=== PATIENT | female | born 1945 | race Caucasian/White ===

== ENCOUNTER 2016-11-05 10:06 | Outpatient (CLI) | payer MEDICARE, OTHER ==
[~2016-11-05] VITALS: Ht 154.9 cm; Wt 57.2 kg
[2016-11-05] MEDS ORDERED: PRAV40TA2 PO (10:25)
[2016-11-05] MEDS ORDERED: TRAM50TA2 PO (10:25)
[2016-11-05] MEDS ORDERED: CHOL20003 PO (10:25)
[2016-11-05] MEDS ORDERED: METO-333 PO (10:25)
[2016-11-05] MEDS ORDERED: GABA-488 PO (10:25)
[2016-11-05] MEDS ORDERED: CYAN250014 PO (10:25)
[2016-11-05] MEDS ORDERED: PANT40TA3 PO (10:25)
[2016-11-05] MEDS ORDERED: LEVO50TA6 PO (10:25)
[2016-11-05] MEDS ORDERED: FERR324T7 PO (10:25)
[2016-11-05 10:34] VITALS: BP 114/69
[2016-11-05 11:38] LABS: BASOPHILS % (AUTO) 0 % (0-10); EOSINOPHILS # (AUTO) 0.2 10^3/uL (0.0-0.3); EOSINOPHILS % (AUTO) 4 % (0-10); LYMPHOCYTES # (AUTO) 1.5 X 10^3 (1.0-4.0); LYMPHOCYTES % (AUTO) 32 % (12-44); MEAN CORPUSCULAR HEMOGLOBIN 30 PG (25-34); MEAN CORPUSCULAR HGB CONC 32 G/DL (32-36); MEAN CORPUSCULAR VOLUME 92 FL (80-99); MEAN PLATELET VOLUME 9.9 FL (7.4-10.4); MONOCYTES # (AUTO) 0.5 X 10^3 (0.0-1.0); MONOCYTES % (AUTO) 10 % (0-12); NEUTROPHILS # (AUTO) 2.4 X 10^3 (1.8-7.8); NEUTROPHILS % (AUTO) 53 % (42-75); PLATELET COUNT 289 10^3/uL (130-400); RED BLOOD COUNT 4.13 10^6/uL (4.35-5.85); RED CELL DISTRIBUTION WIDTH 13.8 % (10.0-14.5); WHITE BLOOD COUNT 4.5 10^3/uL (4.3-11.0)
[2016-11-05 11:57] LABS: ALANINE AMINOTRANSFERASE 10 U/L (0-55); ALBUMIN 3.9 G/DL (3.2-4.5); ANION GAP 4 MMOL/L (5-14); ASPARTATE AMINO TRANSFERASE 18 U/L (5-34); BILIRUBIN,TOTAL 0.6 MG/DL (0.1-1.0); BLOOD UREA NITROGEN 12 MG/DL (7-18); BUN/CREATININE RATIO 13; CALCIUM 8.6 MG/DL (8.5-10.1); CARBON DIOXIDE 27 MMOL/L (21-32); CHLORIDE 107 MMOL/L (98-107); GFR ESTIMATED > 60; GLUCOSE 74 MG/DL (70-105); POTASSIUM 4.3 MMOL/L (3.6-5.0); SODIUM 138 MMOL/L (135-145); TOTAL PROTEIN 6.3 G/DL (6.4-8.2)
[2016-11-26] MEDS ORDERED: BISA5TAB8 PO (09:58)
[2016-11-26] MEDS ORDERED: DIPH25TA27 PO (09:58)
[2016-11-26] MEDS ORDERED: DOCU100C37 PO (09:58)
[2016-11-26] MEDS ORDERED: METO-333 PO ×2 (09:58→10:06)
[2016-11-26] MEDS ORDERED: ACET325T49 PO (09:58)
[2016-11-26] MEDS ORDERED: HYDR-3812 PO ×2 (09:58→10:06)
[2016-11-26] MEDS ORDERED: BACL10TA PO ×2 (09:58→10:06)
[2016-11-26] MEDS ORDERED: TRAM50TA2 PO (10:06)
== END 2016-11-05 15:43 | disposition home or self-care (01) ==
LOC: PREOP 10:06
PROVIDERS: ATTEND Orthopaedic Surgery Orthopaedic Surgery of the Spine
DX: Z01.812 Encounter for preprocedural laboratory examination (principal); Z11.2 Encounter for screening for other bacterial diseases; M41.9 Scoliosis, unspecified
CPT/HCPCS: 36415; 80053; 85025; 86850; 86900; 86901; 87081

== ENCOUNTER 2016-11-19 07:30 | Inpatient (IN) | payer MEDICARE, OTHER ==
[~2016-11-19] VITALS: Ht 154.9 cm; Wt 65.9 kg
[2016-11-19] VITALS (23 sets, daily range): BP systolic 74–137; BP diastolic 36–92
[~2016-11-19 07:30] MED LIST: CHOL20003 PO; CYAN250014 PO; FERR324T7 PO; GABA-488 PO; LEVO50TA6 PO; METO-333 PO; PANT40TA3 PO; PRAV40TA2 PO; TRAM50TA2 PO
[2016-11-19] MEDS ORDERED: ceFAZolin 2 GM/NS 50 ML IV ONE (08:15)
[2016-11-19] MEDS: LACTATED RINGERS 1,000 ML IV PRN ×4 (08:28→15:00)
[2016-11-19] MEDS ORDERED: ROCURONIUM 50 MG/5 ML (ZEMURON) VIAL IV ONE (08:48)
[2016-11-19] MEDS ORDERED: fentaNYL INJECTION 250 MCG/5 ML AMP ONE (08:49)
[2016-11-19] MEDS ORDERED: ONDANSETRON 4 MG/2 ML (SDV) Z0FRAN ONE ×2 (09:14→14:11)
[2016-11-19] MEDS ORDERED: LACTATED RINGERS 0 ML IV ONE (09:14)
[2016-11-19] MEDS ORDERED: LIDOCAINE PF 2% 10 ML (XYLOCAINE) AMP ONE (09:14)
[2016-11-19] MEDS ORDERED: SEVOFLURANE (ULTANE) 15 ML INHAL SOLN ONE ×19 (09:14→15:02)
[2016-11-19] MEDS ORDERED: proPOfol 200 MG/20 ML (DIPRIVAN) VIAL IV ONE (09:14)
[2016-11-19] MEDS ORDERED: PHENYLEPHRINE 100 MCG/ML 10 ML (ANESTHESIA) SYR ONE (09:14)
[2016-11-19] MEDS: GENTAMICIN 40 MG/ML 2 ML INJ SDV ONE (09:39)
[2016-11-19] MEDS ORDERED: GLYCOPYRROLATE 0.2 MG/ML (ROBINUL) 2 ML VIAL ONE (09:46)
[2016-11-19] MEDS ORDERED: TRANEXAMIC ACID 100 MG/ML 10 ML INJECTION IV ONE (11:00)
[2016-11-19] MEDS ORDERED: VANCOMYCIN 1000 MG/VIAL ONE (11:18)
[2016-11-19] MEDS ORDERED: LACTATED RINGERS 1,000 ML IV ONE ×4 (11:29→15:01)
[2016-11-19] MEDS ORDERED: DEXAMETHASONE PF 10 MG/ML (DECADRON) VIAL ONE (11:30)
[2016-11-19] MEDS ORDERED: ceFAZolin 1,000 MG (ANCEF) VIAL ONE (12:45)
[2016-11-19] MEDS ORDERED: NS (IVPB) 100 ML ONE (12:46)
[2016-11-19] MEDS ORDERED: NS (IVPB) 250 ML ONE ×2 (12:46→15:39)
[2016-11-19] MEDS ORDERED: ceFAZolin INJECTION 2,000 MG in NS (IVPB) 50 ML IVP SCH (13:00)
[2016-11-19] MEDS ORDERED: HYDROmorphone (DILAUDID) 2 MG/ML VIAL ONE (14:10)
[2016-11-19] MEDS ORDERED: morphine INJ 10 MG/ML 1ML (SYR OR VIAL) ONE (14:11)
[2016-11-19] MEDS ORDERED: PROMETHAZINE INJ 25 MG/ML (PHENERGAN) AMP ONE (14:11)
--- NOTE | 2016-11-19 15:10 | Progress Note-Post Operative ---
Post-Operative Progess Note Surgeon (s)/Asp Net Programmer (s) Surgeon KATI BHATT MD Asp Net Programmer: AKIRA Mckay Pre-Operative Diagnosis Scoliosis Post-Operative Diagnosis Same Post-Op Procedure Note Date of Procedure: November 19, 2016 Name of Procedure Performed: T6-Pelvis PSF with L4-S1 ALIF Description of the Procedure: Fusion for scoliosis as above Findings of the Procedure Scoliosis Anesthesia Type GETA Estimated blood loss (mL): 700 Specimen(s) collected/removed None KATI BHATT MD November 19, 2016 15:10
--- NOTE | 2016-11-19 15:18 | Diagnostic Imaging Report ---
INDICATION: Low back pain. DISCUSSION: Fluoroscopic support was provided during intraoperative posterior stabilization of the thoracolumbar spine. Please see the operative report for full detail. FLUOROSCOPY TIME: 32 seconds. IMPRESSION: Intraoperative posterior stabilization of the thoracolumbar spine. Dictated by: Dictated on workstation # [id number]
[2016-11-19] MEDS ORDERED: PROMETHAZINE 25 MG (PHENERGAN) TAB PO PRN (15:45)
[2016-11-19] MEDS ORDERED: BISACODYL 5 MG (DULCOLAX) TABLET PO PRN (15:45)
[2016-11-19] MEDS ORDERED: diphenhydrAMINE 25 MG TAB (BENADRYL) PO PRN (15:45)
[2016-11-19] MEDS ORDERED: ACETAMINOPHEN 325 MG TABLET/CAPLET (TYLENOL) PO PRN (15:45)
[2016-11-19] MEDS ORDERED: fentaNYL INJECTION 100 MCG/2 ML AMP IVP PRN (16:00)
[2016-11-19] MEDS ORDERED: HYDROcodone/APAP 10 MG/325 MG (LORTAB) TAB PO PRN (16:00)
[2016-11-19] MEDS: morphine INJ 10 MG/ML 1ML (SYR OR VIAL) IVP PRN ×3 (16:10→20:18)
[2016-11-19] MEDS ORDERED: NS IV 1000 ML 1,000 ML IV ONE ×2 (17:15→20:00)
[2016-11-19] MEDS ORDERED: morphine INJ 4 MG/ML 1 ML (VIAL/SYRINGE) ONE (17:37)
[2016-11-19 18:03] LABS: BASOPHILS % (AUTO) 0 % (0-10); EOSINOPHILS % (AUTO) 0 % (0-10); LYMPHOCYTES # (AUTO) 1.3 X 10^3 (1.0-4.0); LYMPHOCYTES % (AUTO) 12 % (12-44); MEAN CORPUSCULAR HEMOGLOBIN 30 PG (25-34); MEAN CORPUSCULAR HGB CONC 32 G/DL (32-36); MEAN CORPUSCULAR VOLUME 94 FL (80-99); MEAN PLATELET VOLUME 9.6 FL (7.4-10.4); MONOCYTES # (AUTO) 0.7 X 10^3 (0.0-1.0); MONOCYTES % (AUTO) 6 % (0-12); NEUTROPHILS # (AUTO) 8.6 X 10^3 (1.8-7.8); NEUTROPHILS % (AUTO) 81 % (42-75); PLATELET COUNT 263 10^3/uL (130-400); RED BLOOD COUNT 3.33 10^6/uL (4.35-5.85); RED CELL DISTRIBUTION WIDTH 13.6 % (10.0-14.5); WHITE BLOOD COUNT 10.6 10^3/uL (4.3-11.0)
[2016-11-19 18:30] LABS: ALANINE AMINOTRANSFERASE 18 U/L (0-55); ANION GAP 9 MMOL/L (5-14); ASPARTATE AMINO TRANSFERASE 31 U/L (5-34); BILIRUBIN,TOTAL 0.4 MG/DL (0.1-1.0); BLOOD UREA NITROGEN 12 MG/DL (7-18); BUN/CREATININE RATIO 14; CALCIUM 7.9 MG/DL (8.5-10.1); CARBON DIOXIDE 22 MMOL/L (21-32); CHLORIDE 106 MMOL/L (98-107); CREATININE SERUM 0.83 MG/DL (0.60-1.30); GFR ESTIMATED > 60; GLUCOSE 160 MG/DL (70-105); POTASSIUM 4.2 MMOL/L (3.6-5.0); SODIUM 137 MMOL/L (135-145); TOTAL PROTEIN 4.9 G/DL (6.4-8.2)
[2016-11-19] MEDS ORDERED: LIDOCAINE 1% INJ 20 ML (XYLOCAINE) VIAL ONE (19:08)
[2016-11-19] MEDS ORDERED: NS IV 500 ML 500 ML ONE (19:35)
--- NOTE | 2016-11-19 19:47 | Progress Note-Post Operative ---
Post-Operative Progess Note Surgeon (s)/Bowling Teacher (s) Surgeon TOM MEIER MD Bowling Teacher: none Pre-Operative Diagnosis Scoliosis, hypotension Post-Operative Diagnosis Scoliosis, hypotension Post-Op Procedure Note Date of Procedure: November 19, 2016 Name of Procedure Performed: placement left subclavian central venous catheter Description of the Procedure: placement left subclavian central venous catheter Findings of the Procedure . Anesthesia Type local Estimated blood loss (mL): minimal Specimen(s) collected/removed none TOM MEIER MD November 19, 2016 19:47
--- NOTE | 2016-11-19 19:49 | Diagnostic Imaging Report ---
INDICATION: Post line placement. TECHNIQUE: Single view chest 7:34 PM. CORRELATION STUDY: None FINDINGS: A left-sided central line via the subclavian approach is present. Tip superimposed over the thoracic spine. This is likely near the level of the innominate vein just proximal to the SVC confluence. No pneumothorax. Heart size enlarged. Mediastinum is prominent. Vasculature within normal limits. Calcified granuloma at the right mid lung. Also appears to be some infiltrate or perhaps atelectasis left lung base. Extensive thoracolumbar spinal fixation hardware is present. IMPRESSION: 1. Left-sided central line present with tip likely near the expected location of the innominate vein. No findings to suggest post line placement complication. 2. Infiltrate or atelectasis left lung base. Dictated by: Dictated on workstation # [id number]
[2016-11-19] MEDS: HYDROcodone/APAP 5 MG/325 MG (LORTAB) TAB PO PRN ×2 (20:18→21:46)
[2016-11-19] MEDS: DOCUSATE SODIUM 100 MG (COLACE) CAP PO SCH (21:01)
[2016-11-19] MEDS: NS IV 1000 ML 1,000 ML IV SCH (21:26)
[2016-11-19] MEDS: NOREPINEPHRINE 4 MG in D5W 250 ML (IVPB) 250 ML IV SCH (22:25)
[2016-11-19] MEDS: ceFAZolin INJECTION 2,000 MG in NS (IVPB) 50 ML IV SCH (23:23)
[2016-11-20] VITALS (47 sets, daily range): BP systolic 72–131; BP diastolic 47–82
[2016-11-20] MEDS: morphine INJ 10 MG/ML 1ML (SYR OR VIAL) IVP PRN ×6 (00:21→15:03)
[2016-11-20] MEDS: HYDROcodone/APAP 5 MG/325 MG (LORTAB) TAB PO PRN ×4 (01:31→12:45)
[2016-11-20] MEDS: NS IV 1000 ML 1,000 ML IV SCH ×3 (02:16→19:54)
[2016-11-20] MEDS ORDERED: HYDROmorphone (DILAUDID) 2 MG/ML VIAL ONE (03:18)
[2016-11-20] MEDS ORDERED: ALBUMIN 5% 12.5 GM/250 ML 500 ML IV ONE ×2 (03:18→04:45)
[2016-11-20 03:27] LABS: MEAN PLATELET VOLUME 9.3 FL (7.4-10.4); RED BLOOD COUNT 2.95 10^6/uL (4.35-5.85); RED CELL DISTRIBUTION WIDTH 13.8 % (10.0-14.5); WHITE BLOOD COUNT 9.3 10^3/uL (4.3-11.0)
[2016-11-20 03:44] LABS: ALANINE AMINOTRANSFERASE 17 U/L (0-55); ANION GAP 9 MMOL/L (5-14); ASPARTATE AMINO TRANSFERASE 37 U/L (5-34); BILIRUBIN,TOTAL 0.3 MG/DL (0.1-1.0); BLOOD UREA NITROGEN 12 MG/DL (7-18); BUN/CREATININE RATIO 14; CALCIUM 7.2 MG/DL (8.5-10.1); CARBON DIOXIDE 18 MMOL/L (21-32); CHLORIDE 112 MMOL/L (98-107); CREATININE SERUM 0.87 MG/DL (0.60-1.30); GFR ESTIMATED > 60; GLUCOSE 185 MG/DL (70-105); MAGNESIUM 1.3 MG/DL (1.8-2.4); PHOSPHORUS 3.2 MG/DL (2.3-4.7); POTASSIUM 3.8 MMOL/L (3.6-5.0); SODIUM 139 MMOL/L (135-145); TOTAL PROTEIN 4.9 G/DL (6.4-8.2)
[2016-11-20] MEDS ORDERED: NS IV 500 ML 500 ML ONE (04:14)
[2016-11-20] MEDS ORDERED: MAGNESIUM 1 GM/D5W 100 ML IVPB IV SCH (04:45)
[2016-11-20] MEDS ORDERED: HYDROmorphone (DILAUDID) 2 MG/ML VIAL IV ONE (04:45)
[2016-11-20] MEDS: MAGNESIUM 1 GM/100 ML IVPB 100 ML IV SCH ×5 (05:09→08:58)
[2016-11-20] MEDS: KCL 20 MEQ TAB (K-DUR) PO SCH (05:40)
[2016-11-20] MEDS: POTASSIUM CL 10MEQ/50ML IVPB 50 ML IV SCH (05:40)
[2016-11-20] MEDS ORDERED: NS IV 500 ML 500 ML IV ONE ×2 (05:45→06:15)
[2016-11-20] MEDS ORDERED: NS IV 1000 ML 1,000 ML IV ONE (06:00)
[2016-11-20] MEDS ORDERED: SODIUM BICARB 8.4% 50 MEQ/50 ML (ABBOTT) SYR IV ONE (06:00)
[2016-11-20] MEDS: ceFAZolin INJECTION 2,000 MG in NS (IVPB) 50 ML IV SCH ×2 (06:05→14:16)
[2016-11-20] MEDS: MULTIVIT W/MINERALS TAB (THERAGRAN M) PO SCH (06:13)
[2016-11-20] MEDS: PANTOPRAZOLE 40 MG (PROTONIX) TAB PO SCH (06:15)
--- NOTE | 2016-11-20 06:28 | CONSULTATION REPORT ---
DATE OF SERVICE: 11/19/2016 ADMITTING PHYSICIAN: Dr. Arthur Arrieta HISTORY OF PRESENT ILLNESS: The patient is a 71-year-old female, who has had low back pain and left flank pain. She has a history of osteoporosis. Her symptoms have worsened despite maximal therapy. She underwent an L4-S1 anterior lumbar interbody fusion as well as a T6 pelvis fusion. She did well after surgery in recovery, however was slightly hypotensive. She was then brought to the ICU and was awake, alert and talking; however, continued to have low blood pressures. Pulmonary critical care was consulted and the recommendation was to place a central venous catheter and start Levophed. At this time, she is stable, awake, alert and is talking cohesively. PAST MEDICAL HISTORY: Hypertension, hypothyroid and thoracolumbar scoliosis. PAST SURGICAL HISTORY: Unknown. ALLERGIES: No known drug allergies. MEDICATIONS: Alendronate, gabapentin, levothyroxine, metoprolol, propranolol, pravastatin and tramadol. SOCIAL HISTORY: Negative smoke. Negative alcohol. FAMILY HISTORY: Noncontributory. REVIEW OF SYSTEMS: Well-nourished female, awake and alert to person, place and time. She reports some pain; however, it is tolerable. She does not report any shortness of breath or difficulty in breathing. No chest pain, palpitations or diaphoresis. No nausea or vomiting. No diarrhea or constipation. No fever or chills. No recent inadvertent weight loss. PHYSICAL EXAMINATION: VITAL SIGNS: Stable, afebrile. Systolic blood pressure ranging from 90s to 110s. CHEST: Clear. HEART: Regular. EXTREMITIES: No lower extremity edema. Negative Homans sign. HEENT: No scleral icterus. No cervical lymphadenopathy. ABDOMEN: Soft, nontender, and nondistended. ASSESSMENT AND PLAN: A 71-year-old female with hypertension, status post multilevel lumbar and thoracic open reduction and internal fixation. Recommendation by pulmonary critical care was to start Levophed and she will need central venous catheter, which we will place. Job ID: [id number] DocumentID: [id number] Dictated Date: 11/19/2016 19:40:40 Log Cutter Date: 11/20/2016 04:41:19 Dictated By: TOM MEIER MD
--- NOTE | 2016-11-20 06:43 | Progress Note (SOAP) ---
Subjective Subjective/Events-last exam Pain ok, no real complaints Objective Exam Vital Signs Date Time Temp Pulse Resp B/P (MAP) Pulse Ox O2 Delivery O2 Flow Rate FiO2 11/20/16 06:30 125 18 103/47 99 Nasal Cannula 4.00 11/20/16 06:15 112 16 100/58 100 Nasal Cannula 4.00 11/20/16 06:00 105 15 76/56 100 Nasal Cannula 4.00 11/20/16 05:45 107 10 72/49 98 Nasal Cannula 4.00 11/20/16 05:30 113 10 96/57 98 Nasal Cannula 4.00 11/20/16 05:15 111 9 90/61 97 Nasal Cannula 4.00 11/20/16 05:00 116 9 88/55 97 Nasal Cannula 4.00 11/20/16 04:45 125 13 99/66 96 Nasal Cannula 4.00 11/20/16 04:30 111 8 75/54 97 Nasal Cannula 4.00 11/20/16 04:15 112 9 90/56 95 Nasal Cannula 4.00 11/20/16 04:00 97.6 126 10 83/63 95 Nasal Cannula 4.00 11/20/16 04:00 98 4.00 11/20/16 03:45 116 10 90/66 97 Nasal Cannula 4.00 11/20/16 03:30 125 10 81/62 93 Nasal Cannula 4.00 11/20/16 03:15 141 15 82/61 87 OxyMask 3.00 11/20/16 03:00 126 14 89/56 93 OxyMask 3.00 11/20/16 02:45 133 14 88/58 92 OxyMask 3.00 11/20/16 02:30 112 21 77/67 97 OxyMask 3.00 11/20/16 02:15 123 9 90/64 94 OxyMask 3.00 11/20/16 02:00 111 12 106/64 100 OxyMask 3.00 11/20/16 01:45 109 12 115/69 99 OxyMask 3.00 11/20/16 01:30 115 17 110/76 96 OxyMask 3.00 11/20/16 01:15 109 10 99/57 100 OxyMask 3.00 11/20/16 01:00 111 10 123/70 100 OxyMask 3.00 11/20/16 01:00 111 11/20/16 00:45 102 12 106/67 100 OxyMask 3.00 11/20/16 00:30 114 11 106/64 96 OxyMask 3.00 11/20/16 00:15 109 16 131/78 97 OxyMask 3.00 11/20/16 00:00 98 3.00 11/20/16 00:00 98.1 103 11 106/74 99 OxyMask 3.00 11/19/16 23:45 105 12 105/70 100 OxyMask 3.00 11/19/16 23:30 110 18 107/44 94 OxyMask 3.00 11/19/16 23:15 115 13 134/84 98 OxyMask 3.00 11/19/16 23:00 96 19 114/69 99 OxyMask 3.00 11/19/16 22:45 101 14 137/88 100 OxyMask 3.00 11/19/16 22:30 112 16 87/74 100 OxyMask 3.00 11/19/16 22:15 105 7 88/76 97 OxyMask 3.00 11/19/16 22:00 108 10 97/70 97 OxyMask 3.00 11/19/16 21:45 112 21 74/56 93 OxyMask 3.00 11/19/16 21:30 108 14 97/68 89 OxyMask 3.00 11/19/16 21:15 105 13 100/74 94 OxyMask 3.00 11/19/16 21:00 105 11 105/92 100 OxyMask 3.00 11/19/16 20:45 102 17 115/81 87 OxyMask 3.00 11/19/16 20:30 96 14 94/76 99 OxyMask 3.00 11/19/16 20:15 105 18 93/59 98 OxyMask 3.00 11/19/16 20:07 97 3.00 11/19/16 20:00 98 17 78/57 98 OxyMask 3.00 11/19/16 20:00 98 3.00 11/19/16 19:45 100 11 96/58 97 OxyMask 3.00 11/19/16 19:30 96 13 88/61 92 OxyMask 3.00 11/19/16 19:15 102 20 82/52 100 OxyMask 3.00 11/19/16 19:00 92 11/19/16 19:00 92 17 102/65 100 OxyMask 3.00 11/19/16 18:00 86 16 88/63 98 Room Air 11/19/16 17:00 79 12 75/36 98 Room Air 11/19/16 16:45 98.7 11/19/16 16:45 3.00 11/19/16 08:27 98.1 82 16 133/78 98 Room Air I & O 11/20/16 07:00 Intake Total 5800 ml Output Total 1454 ml Balance 4346 ml Capillary Refill : General Appearance: No Apparent Distress Respiratory: No Respiratory Distress Cardiovascular: Tachycardia Gastrointestinal: soft Extremity: Normal Capillary Refill, Normal Inspection, Normal Range of Motion, Non Tender, No Calf Tenderness Neurologic/Psychiatric: Alert, Oriented x3, No Motor/Sensory Deficits, Normal Mood/Affect Results Lab Laboratory Tests 11/19/16 17:36: White Blood Count 10.6, Red Blood Count 3.33L, Hemoglobin 10.0L, Hematocrit 31L , Mean Corpuscular Volume 94, Mean Corpuscular Hemoglobin 30, Mean Corpuscular Hemoglobin Concent 32, Red Cell Distribution Width 13.6, Platelet Count 263, Mean Platelet Volume 9.6, Neutrophils (%) (Auto) 81H, Lymphocytes (%) (Auto) 12 , Monocytes (%) (Auto) 6, Eosinophils (%) (Auto) 0, Basophils (%) (Auto) 0, Neutrophils # (Auto) 8.6H, Lymphocytes # (Auto) 1.3, Monocytes # (Auto) 0.7, Eosinophils # (Auto) 0.0, Basophils # (Auto) 0.0, Sodium Level 137, Potassium Level 4.2, Chloride Level 106, Carbon Dioxide Level 22, Anion Gap 9, Blood Urea Nitrogen 12, Creatinine 0.83, Estimat Glomerular Filtration Rate > 60, BUN/ Creatinine Ratio 14, Glucose Level 160H, Calcium Level 7.9L, Total Bilirubin 0.4 , Aspartate Amino Transf (AST/SGOT) 31, Alanine Aminotransferase (ALT/SGPT) 18, Alkaline Phosphatase 48, Total Protein 4.9L, Albumin 3.0L 11/20/16 03:17: White Blood Count 9.3, Red Blood Count 2.95L, Hemoglobin 8.8L, Hematocrit 28L, Mean Corpuscular Volume 94, Mean Corpuscular Hemoglobin 30, Mean Corpuscular Hemoglobin Concent 32, Red Cell Distribution Width 13.8, Platelet Count 277, Mean Platelet Volume 9.3, Sodium Level 139, Potassium Level 3.8, Chloride Level 112H, Carbon Dioxide Level 18L, Anion Gap 9, Blood Urea Nitrogen 12, Creatinine 0.87, Estimat Glomerular Filtration Rate > 60, BUN/Creatinine Ratio 14, Glucose Level 185H, Calcium Level 7.2L, Total Bilirubin 0.3, Aspartate Amino Transf (AST /SGOT) 37H, Alanine Aminotransferase (ALT/SGPT) 17, Alkaline Phosphatase 40, Total Protein 4.9L, Albumin 3.0L, Phosphorus Level 3.2, Magnesium Level 1.3L, Troponin I < 0.30 11/20/16 05:10: Lactic Acid Level 3.21*H Assessment/Plan Assessment/Plan Assess & Plan/Chief Complaint Thoracolumbar Scoliosis Post Laminectomy Syndrome Hypotensions Tachycardia Acute Blood Loss Anemia S/P L4-S1 Anterior T6-Pelvis Posterior Spinal Fusion for scoliosis Plan: Continue ICU management Mobilize today Pain control Clinical Quality Measures DVT/VTE Risk/Contraindication: Risk Factor Score Per Nursin RFS Level Per Nursing on Admit: 4+=Very High KATI BHATT MD November 20, 2016 6:43 am
--- NOTE | 2016-11-20 07:11 | Pulmonary Consultation ---
History of Present Illness History of Present Illness Date of Consultation 11/20/16 07:06 Date of Admission History of Present Illness 71yo with hx of low back pain and left flank pain presented for elective orthopedic surgery. SHe is S/P L4-S1 anterior lumbar intervertebral fusion. Surgery went well however post surgery patient was hypotensive and required neosynephrine and IVF. Dr. Oh placed central line. Pt has improved throughout the night. Allergies and Home Medications Allergies Coded Allergies: No Known Drug Allergies (Unverified , 11/05/16) Home Medications Cholecalciferol (Vitamin D3) 2,000 Unit Capsule, 2,000 UNIT PO DAILY, (Reported) Cyanocobalamin (Vitamin B-12) 2,500 Mcg Tab.chew, PO DAILY, (Reported) Ferrous Gluconate 324 Mg Tablet, 324 MG PO DAILY, (Reported) Gabapentin 300 Mg Capsule, 300 MG PO BID, (Reported) Levothyroxine Sodium 50 Mcg Tablet, 50 MCG PO DAILY, (Reported) Metoprolol Tartrate 25 Mg Tablet, 12.5 MG PO BID, (Reported) Pantoprazole Sodium 40 Mg Tablet.dr, 40 MG PO DAILY, (Reported) Pravastatin Sodium 40 Mg Tablet, 40 MG PO HS, (Reported) Tramadol HCl 50 Mg Tablet, 50 MG PO BID, (Reported) Past Gucxyqi-Mihabs-Ogcpaj Hx Patient Social History Alcohol Use: Denies Use Recreational Drug Use: No Smoking Status: Never a Smoker Recent Foreign Travel: No Contact w/Someone Who Travel: No Recent Infectious Disease Expo: No Recent Hopitalizations: No Physical Abuse Screen: No Sexual Abuse: No Immunizations Up To Date Date of Pneumonia Vaccine: May 02, 2015 Seasonal Allergies Seasonal Allergies: No Reproductive System Sexually Transmitted Disease: No HIV/AIDS: No Female Reproductive Disorders: Denies Musculoskeletal Musculoskeletal Disorders: Arthritis, Scoliosis, Chronic Back Pain HEENT Loss of Vision: Bilateral Hearing Impairment: Denies Blood Transfusions Adverse Reaction to a Blood Tr: No (N/A) Family Medical History Family Medial History: BLADDER CA G8 SISTER Colon cancer G8 BROTHER Hypertension 19 FATHER LIVER CA G8 SISTER SKIN CANCER 19 FATHER Exam Exam Vital Signs Date Time Temp Pulse Resp B/P (MAP) Pulse Ox O2 Delivery O2 Flow Rate FiO2 11/20/16 06:45 113 30 103/62 100 Nasal Cannula 4.00 11/20/16 06:30 125 18 103/47 99 Nasal Cannula 4.00 11/20/16 06:15 112 16 100/58 100 Nasal Cannula 4.00 11/20/16 06:00 105 15 76/56 100 Nasal Cannula 4.00 11/20/16 05:45 107 10 72/49 98 Nasal Cannula 4.00 11/20/16 05:30 113 10 96/57 98 Nasal Cannula 4.00 11/20/16 05:15 111 9 90/61 97 Nasal Cannula 4.00 11/20/16 05:00 116 9 88/55 97 Nasal Cannula 4.00 11/20/16 04:45 125 13 99/66 96 Nasal Cannula 4.00 11/20/16 04:30 111 8 75/54 97 Nasal Cannula 4.00 11/20/16 04:15 112 9 90/56 95 Nasal Cannula 4.00 11/20/16 04:00 97.6 126 10 83/63 95 Nasal Cannula 4.00 11/20/16 04:00 98 4.00 11/20/16 03:45 116 10 90/66 97 Nasal Cannula 4.00 11/20/16 03:30 125 10 81/62 93 Nasal Cannula 4.00 11/20/16 03:15 141 15 82/61 87 OxyMask 3.00 11/20/16 03:00 126 14 89/56 93 OxyMask 3.00 11/20/16 02:45 133 14 88/58 92 OxyMask 3.00 11/20/16 02:30 112 21 77/67 97 OxyMask 3.00 11/20/16 02:15 123 9 90/64 94 OxyMask 3.00 11/20/16 02:00 111 12 106/64 100 OxyMask 3.00 11/20/16 01:45 109 12 115/69 99 OxyMask 3.00 11/20/16 01:30 115 17 110/76 96 OxyMask 3.00 11/20/16 01:15 109 10 99/57 100 OxyMask 3.00 11/20/16 01:00 111 10 123/70 100 OxyMask 3.00 11/20/16 01:00 111 11/20/16 00:45 102 12 106/67 100 OxyMask 3.00 11/20/16 00:30 114 11 106/64 96 OxyMask 3.00 11/20/16 00:15 109 16 131/78 97 OxyMask 3.00 11/20/16 00:00 98 3.00 11/20/16 00:00 98.1 103 11 106/74 99 OxyMask 3.00 11/19/16 23:45 105 12 105/70 100 OxyMask 3.00 11/19/16 23:30 110 18 107/44 94 OxyMask 3.00 11/19/16 23:15 115 13 134/84 98 OxyMask 3.00 11/19/16 23:00 96 19 114/69 99 OxyMask 3.00 11/19/16 22:45 101 14 137/88 100 OxyMask 3.00 11/19/16 22:30 112 16 87/74 100 OxyMask 3.00 11/19/16 22:15 105 7 88/76 97 OxyMask 3.00 11/19/16 22:00 108 10 97/70 97 OxyMask 3.00 11/19/16 21:45 112 21 74/56 93 OxyMask 3.00 11/19/16 21:30 108 14 97/68 89 OxyMask 3.00 11/19/16 21:15 105 13 100/74 94 OxyMask 3.00 11/19/16 21:00 105 11 105/92 100 OxyMask 3.00 11/19/16 20:45 102 17 115/81 87 OxyMask 3.00 11/19/16 20:30 96 14 94/76 99 OxyMask 3.00 11/19/16 20:15 105 18 93/59 98 OxyMask 3.00 11/19/16 20:07 97 3.00 11/19/16 20:00 98 17 78/57 98 OxyMask 3.00 11/19/16 20:00 98 3.00 11/19/16 19:45 100 11 96/58 97 OxyMask 3.00 11/19/16 19:30 96 13 88/61 92 OxyMask 3.00 11/19/16 19:15 102 20 82/52 100 OxyMask 3.00 11/19/16 19:00 92 11/19/16 19:00 92 17 102/65 100 OxyMask 3.00 11/19/16 18:00 86 16 88/63 98 Room Air 11/19/16 17:00 79 12 75/36 98 Room Air 11/19/16 16:45 98.7 11/19/16 16:45 3.00 11/19/16 08:27 98.1 82 16 133/78 98 Room Air I & O 11/20/16 07:00 Intake Total 6975 ml Output Total 1664 ml Balance 5311 ml General Appearance: No Apparent Distress Respiratory: No Respiratory Distress Cardiovascular: Tachycardia Gastrointestinal: soft Extremity: Normal Capillary Refill, Normal Inspection, Normal Range of Motion, Non Tender, No Calf Tenderness Neurologic/Psychiatric: Alert, Oriented x3, No Motor/Sensory Deficits, Normal Mood/Affect Results Lab Laboratory Tests 11/19/16 17:36 11/20/16 03:17 Assessment/Plan Assessment/Plan Thoracolumbar Scoliosis s/p Laminectomy Syndrome L4-S1 Anterior T6-Pelvis Posterior Spinal Fusion for scoliosis -pain control Hypotensions with Acute Blood Loss Anemia -wean levophed -transfuse 1 unit PRBC Metabolic lactic acidosis secondary to intravascular depletion -IVF, transfuse, monitor Tachycardia Clinical Quality Measures DVT/VTE Risk/Contraindication: Risk Factor Score Per Nursin RFS Level Per Nursing on Admit: 4+=Very High AIYANA JAIME DO November 20, 2016 07:11
[2016-11-20] MEDS: ONDANSETRON 4 MG/2 ML (SDV) Z0FRAN IV PRN ×2 (07:55→15:06)
--- NOTE | 2016-11-20 08:14 | OPERATIVE REPORT ---
DATE OF SERVICE: 11/19/2016 ADMITTING PHYSICIAN: KATI BHATT MD PREPROCEDURE DIAGNOSIS: Hypotension, status post multilevel open reduction and internal fixation of the spine. POSTOPERATIVE DIAGNOSIS: Hypotension, status post multilevel open reduction and internal fixation of the spine. PROCEDURE: Placement of left subclavian central venous catheter. SURGEON: TOM MEIER MD ANESTHESIA: Local. ESTIMATED BLOOD LOSS: Minimal. FINDINGS: Catheter tip at superior vena cava -- right atrial junction. DISPOSITION: The patient tolerated the procedure well. The patient is a 71-year-old female with history of thoracolumbar scoliosis which was symptomatic and causing more pain. Today, she underwent multilevel interbody fusion as well as open reduction and internal fixation. She was slightly hypotensive in the recovery. However, she did recover from this and was sent to the intensive care unit. In the intensive care unit, her systolic blood pressure would not go above 80s and 90s, however, she was awake, alert and answered all questions appropriately. The recommendation by pulmonary critical care was to start Levophed drip and a central venous catheter was necessary. The left chest and neck were prepped and draped in the standard surgical fashion. One percent lidocaine was then used to anesthetize the overlying skin in the left subclavian region. The left subclavian vein was then cannulated with drawing of venous blood. The guidewire was then inserted without any resistance. The cannulated needle removed and a small skin incision made using 11 blade. A track was then created using a venous dilator over the guidewire. The triple lumen central venous catheter was then advanced over the guidewire using the Seldinger technique. The guidewire was then removed and all three ports devendra venous blood and saline pushed in without any resistance. The catheter was then sutured to the skin using interrupted 3-0 silk sutures. The catheter was then cleaned, covered with sterile gauze followed by OpSite. The patient tolerated the procedure well. A post procedure chest x-ray was performed which did not show any pneumothorax and proper placement of the catheter tip. The catheter may be used at any time. Job ID: [id number] DocumentID: [id number] Dictated Date: 11/19/2016 19:44:22 Cpc Coder Date: 11/20/2016 08:13:47 Dictated By: TOM MEIER MD
[2016-11-20] MEDS: inSUlin ASPART (NovoLOG) 1 UNIT/0.01 ML (CHARGE PER UNIT) SC SCH ×5 (08:22→23:52)
[2016-11-20] MEDS ORDERED: CYAN100088 PO (09:19)
--- NOTE | 2016-11-20 09:45 | Consultation-Hospitalist ---
HPI History of Present Illness: HPI/Chief Complaint CC: Medical management following spine surgery HPI: This is a 71-year-old white female patient of Allison Rojo that presents to the ICU after an uncomplicated spine surgery per Dr. Arrieta but did become hypotensive requiring pressor therapy and IV fluids after surgery and in recovery. Dr. Walker was consulted for critical illness and IV fluids and pressor therapy were both initiated with good results but her repeat hemoglobin is 7.1 likely will require transfusion. Overall she feels weak but pain is controlled after pain medication as given and overall she denies a chest pain or shortness of breath. I review her home medication list and review vitals and labs. 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) Alcohol Use: Denies Use Recreational Drug Use: No Smoking Status: Never a Smoker Physical Abuse Screen: No Sexual Abuse: No Recent Foreign Travel: No Contact w/other who traveled: No Recent Hopitalizations: No Recent Infectious Disease Expo: No Immunizations Up To Date Date of Pneumonia Vaccine: May 02, 2015 Seasonal Allergies Seasonal Allergies: No Surgeries HX Surgeries: Yes Surgeries: Orthopedic Respiratory Hx Respiratory Disorders: No Cardiovascular Hx Cardiovascular Disorders: Yes Cardiac Disorders: High Cholesterol, Hypertension Neurological Hx Neurological Disorders: Yes Neurological Disorders: Neuropathy Reproductive System Sexually Transmitted Disease: No HIV/AIDS: No Female Reproductive Disorders: Denies Genitourinary Hx Genitourinary Disorders: No Gastrointestinal Hx Gastrointestinal Disorders: Yes Gastrointestinal Disorders: Gastroesophageal Reflux Musculoskeletal Hx Musculoskeletal Disorders: Yes Musculoskeletal Disorders: Arthritis, Scoliosis, Chronic Back Pain Endocrine Hx Endocrine Disorders: No HEENT HX ENT Disorders: No Loss of Vision: Bilateral Hearing Impairment: Denies Psychosocial Hx Psychiatric Problems: No Blood Transfusions Adverse Reaction to a Blood Tr: No (N/A) Family Medical History Significant Family History: No Pertinent Family Hx Family Hx: BLADDER CA G8 SISTER Colon cancer G8 BROTHER Hypertension 19 FATHER LIVER CA G8 SISTER SKIN CANCER 19 FATHER Review of Systems Constitutional: see HPI, malaise, weakness EENTM: no symptoms reported Respiratory: no symptoms reported Cardiovascular: no symptoms reported Gastrointestinal: no symptoms reported Genitourinary: no symptoms reported Musculoskeletal: back pain Skin: no symptoms reported Psychiatric/Neurological: No Symptoms Reported All Other Systems Reviewed Negative Unless Noted: Yes Physical Exam Physical Exam Vital Signs Vital Sign - Last 12Hours 11/19/16 08:27 Temp 98.1 Pulse 82 Resp 16 B/P (MAP) 133/78 Pulse Ox 98 O2 Delivery Room Air Capillary Refill : General Appearance: No Apparent Distress, WD/WN, Chronically ill, Thin Eyes: Bilateral Eye Normal Inspection, Bilateral Eye PERRL HEENT: PERRL/EOMI, Normal ENT Inspection, Pharynx Normal Neck: Full Range of Motion, Normal Inspection, Non Tender, Supple, Carotid Bruit Respiratory: Chest Non Tender, Lungs Clear, No Accessory Muscle Use, No Respiratory Distress, Decreased Breath Sounds Cardiovascular: Regular Rate, Rhythm, No Edema, No Gallop, No JVD, No Murmur, Normal Peripheral Pulses Gastrointestinal: Normal Bowel Sounds, No Organomegaly, No Pulsatile Mass, Non Tender, Soft Back: Normal Inspection, No CVA Tenderness, No Vertebral Tenderness Extremity: Normal Capillary Refill, Normal Inspection, Normal Range of Motion, Non Tender, No Calf Tenderness, No Pedal Edema Neurologic/Psychiatric: Alert, Oriented x3, No Motor/Sensory Deficits, Normal Mood/Affect, Other (frail) Skin: Normal Color, Warm/Dry Lymphatic: No Adenopathy Results Results/Procedures Lab Laboratory Tests 11/19/16 17:36 11/20/16 03:17 11/20/16 08:00 Assessment/Plan Admission Diagnosis Assessment: Hypotension following spine surgery Chronic debility Post op anemia Hypothyroidism GERD HLP Assessment and Plan Plan: Monitor blood pressure closely maintain the blood transfusion considering her hemoglobin is 7.1 but off pressors and responding to IV fluids Very slow recovery expected so will do inpatient rehabilitation eval Monitor blood work closely Hold home blood pressure medications Monitor chest x-ray abnormality Clinical Quality Measures DVT/VTE Risk/Contraindication: Risk Factor Score Per Nursin RFS Level Per Nursing on Admit: 4+=Very High DONNIE VAZQUEZ DO November 20, 2016 09:45
[2016-11-20] MEDS ORDERED: NS (IVPB) 100 ML ONE (10:33)
[2016-11-20] MEDS: DOCUSATE SODIUM 100 MG (COLACE) CAP PO SCH ×2 (11:12→20:46)
--- NOTE | 2016-11-20 11:21 | Physical Therapy Evaluation ---
PT Evaluation-General Medical Diagnosis Admission Date November 19, 2016 at 07:38 Medical Diagnosis: Post L4-S1 ant lumbar fusion Onset Date: November 19, 2016 Therapy Diagnosis Therapy Diagnosis: weakness; abn giat Height/Weight Height (Feet): 5 Height (Inches): 1.00 Weight (Pounds): 132 Weight (Ounces): 2.0 Precautions Precautions/Isolations: Fall Prevention, Standard Precautions custom back brace issued Referral Physician: Meenakshi Reason for Referral: Evaluation/Treatment Medical History Additional Medical History HTN Current History S/P L4-S1 Anterior T6-Pelvis Posterior Spinal Fusion for scoliosis. Post surgery, severe hypotension and returned to OR for central venous catheter placement. Reviewed History: Yes Social History Home: Single Level Current Living Status: Spouse Entry Into Home: Stairs Without Railing PT Steps Into Home: 2 Prior/Core FIM Prior Level of Function Functional [place] Measure 0=Not Assessed/NA 4=Minimal Assistance 1=Total Assistance 5=Supervision or Setup 2=Maximal Assistance 6=Modified [place] 3=Moderate Assistance 7=Complete [place] Bed Mobility: 7 Transfers (B,C,W/C) (FIM): 7 Gait: 7 [address]; reports she is able to care for herself and ambulate in the community. PT Evaluation-Current Subjective agreeable to PT and to sit/stand at EOB Pt/Family Goals home when able. Objective Patient Orientation: Person, Place, Time, Situation Problem Solving: Fair Attachments: Drains, [place] Catheter, IV ROM/Strength ROM Lower Extremities WFL Strenght Lower Extremities WFL Integumentary/Posture Integumentary intact; incision noted Bowel Incontinence: No Bladder Incontinence: No Posture normal and symmetrical Neuromuscular (Tone, Coordination, Reflexes) no noted functional deficits Sensory Vision: Functional Hearing: Functional Hand Dominance: Right Sensation Right Lower Extremit: Intact Sensation Left Lower Extremity: Intact Transfers Functional [place] Measure 0=Not Assessed/NA 4=Minimal Assistance 1=Total Assistance 5=Supervision or Setup 2=Maximal Assistance 6=Modified [place] 3=Moderate Assistance 7=Complete [place] Transfers (B, C, W/C) (FIM): 2 Scootin Rollin Supine to/from Sit: 2 Sit to/from Stand: 4 (skilled cues for sequencing and min assist) log roll technique; education on log roll technique and cues to sequence during task Sat EOB 5-6 minutes. Sit to stand with min assist with FWW and took sidesteps to her right with CGA with FWW. Pt in bed post treatment with needs met. Gait Mode of Locomotion: Walk Gait (FIM): 0 Treatment Co treat with OT Assessment/Needs Post back surgery with limited functional mobility and need for assist with all transfers. Pt will benefit from skilled PT intervention to work on functional transfers and progress to gait. Pt has good rehab potential and expect excellent gains. Rehab Potential: Good PT Healthcare Or Medical Goals Healthcare Or Medical Goals PT Custodial Goals Time Frame: November 23, 2016 Transfers (B,C,W/C) (FIM): 6 Gait (FIM): 6 Gait distance (FIM): 3=150 ft Gait Assistive Device: FWW PT Plan Problem List Problem List: Activity Tolerance, Functional Strength, Safety, Balance, Gait, Transfer, Bed Mobility Treatment/Plan Treatment Plan: Continue Plan of Care Treatment Plan: Bed Mobility, Education, Functional Activity Patricia, Functional Strength, Gait, Safety, Therapeutic Exercise, Transfers Treatment Duration: November 23, 2016 # of days/week 5-6 Visits Per Week: 11 Pt/Family Agrees w/Plan: Yes Safety Risks/Education Patient Education: Transfer Techniques, Safety Issues Teaching Recipient: Patient Teaching Methods: Demonstration, Discussion Response to Teaching: Reinforcement Needed Time/GCodes Time In: 1030 Time Out: 1100 Total Billed Treatment Time: 30 Total Billed Treatment visit EVM 15 co treat with OT G Codes Necessary: RAMON Payan PT November 20, 2016 11:21
--- NOTE | 2016-11-20 11:34 | Occupational Therapy Eval ---
OT Evaluation-General/PLF Medical Diagnosis Admission Date November 19, 2016 at 07:38 Medical Diagnosis: Post L4-S1 ant lumbar fusion T6-Pelvis PSF Onset Date: November 19, 2016 Therapy Diagnosis Therapy Diagnosis: Weakness, Decreased ADL skills Height/Weight Height (Feet): 5 Height (Inches): 1.00 Weight (Pounds): 132 Weight (Ounces): 2.0 Precautions Precautions/Isolations: Fall Prevention, Standard Precautions Safety Interventions: None Weight Bear Status Weight Bearing Restriction: Weight Bearing/Tolerated Pt. has back brace for back safety. However, can stand, ambulate, and sit without brace on. Spoke with Adrian Garcia on 11-20-16. Pt. is to maintain back precautions. No bending, lifting, or twisting. Referral Physician: Meenakshi Referral Reason: Activity Tolerance, Self Care, Evaluation/Treatment, Strengthening/ROM Medical History Pertinent Medical History: Arthritis Additional Medical History scoliosis, chronic back pain Current History Pt. had elective back surgery. Reviewed History: Yes Social History Home: Single Level Current Living Status: Spouse Entry Into Home: Stairs With Railing Steps Into Home: 2 ADL-Prior Level of Function ADL PLOF Comments Pt. lives with spouse, who is in poor health. Has a son that lives close by, and a sister that will be at her house everyday. DME/Equipment: Bath Chair, Shower DME/Equipment Comments Pt. has a cane, walker, and wheelchair. Drive Self: Yes OT Current Status Subjective Pt. reports 9/10 back pain. Nursing to give pt. pain medication. Appearance Pt. is alert in bed. Very groggy and carefully moves. OT/PT co-treat. Mental Status/Objective Patient Orientation: Person, Place Attachments: Drains, Oxygen Current Glasses/Contacts: Yes Hearing Aids: No Dentures/Partials: Yes Hand Dominance: Right Upper Extremity ROM WFL Upper Extremity Strength Pt. demonstrates 4/5 bilateral hand campus safety officer. No other strength testing completed due to recent back surgery. ADL-Treatment Functional [place] Measure 0=Not Assessed/NA 4=Minimal Assistance 1=Total Assistance 5=Supervision or Setup 2=Maximal Assistance 6=Modified [place] 3=Moderate Assistance 7=Complete IndependenceIRFPAI Quality Coding Scale 6 Independent with activity with or without an assistive device 5 Patient requires set up or clean up by helper. Patient completes activity by themselves 4 Supervision or touching assist (CGA). [place] provide cues , steadying assist 3 The helper provides less than half the effort to complete the activity 2 The helper provides more than half the effort to complete the activity 1 Dependent. The helper does all the effort to complete an activity 7 Patient refused to complete or attempt activity 9 The patient did not perform the activity before the current illness or injury 88 Not attempted due to Medical conditions or safety concerns Lower Body Dressing (FIM): 1 (Pt. is dependent to have socks donned for her.) Transfers (B, C, W/C) (FIM): 2 Pt. requires max assist to log roll, and then max assist to transfer supine- sit. Min assist to stand, with cues to breathe. OT/PT co-treat due to pt's fatigue level. OT focused on ADL training, back safety education, and hand placement of walker while PT focused on transfer training, foot placement, and vitals while standing. Blood pressure stable during transfer. Nursing getting ready to give pt. one unit blood. Transferred back to bed with max x2, and then max x 2 for bed mobility. Pt. has multiple tubing and chords. All needs met. Education OT Patient Education: Correct positioning, Modified ADL techniques, Progress toward Goal/Update tx plan, Purpose of tx/functional activities, Reviewed precautions, Rehab process, Transfer techniques Teaching Recipient: Patient Teaching Methods: Demonstration, Discussion Response to Teaching: Verbalize Understanding, Return Demonstration OT Short Term Goals Short Term Goals Time Frame: November 27, 2016 Eating(FIM): 5 Grooming(FIM): 5 Bathing(FIM): 4 Upper Body Dressing(FIM): 5 Lower Body Dressing(FIM): 4 Toileting(FIM): 5 Transfers (B,C,W/C) (FIM): 5 Toilet/Commode Transfer(FIM): 5 Shower Transfer(FIM): 4 Additional Short Term Goals: 1-Demonstrate ADL Tasks, 2-Verbalize Understanding , 3-ImproveStrength/Patricia 1=Demonstrate adherence to instructed precautions during ADL tasks. 2=Patient will verbalize/demonstrate understanding of assistive devices/ modifications for ADL. 3=Patient will improve strength/tolerance for activity to enable patient to perform ADL's. OT Linotype Worker Goals Linotype Worker Goals Time Frame: December 04, 2016 Eating (FIM): 6 Grooming(FIM): 6 Bathing(FIM): 5 Upper Body Dressing(FIM): 6 Lower Body Dressing(FIM): 6 Toileting(FIM): 6 Transfers (B,C,W/C) (FIM): 6 Toilet/Commode Transfer(FIM): 6 Shower Transfer(FIM): 5 Additional Goals: 1-Demonstrate ADL Tasks, 2-Verbalize Understanding, 3- ImproveStrength/Patricia 1=Demonstrate adherence to instructed precautions during ADL tasks. 2=Patient will verbalize/demonstrate understanding of assistive devices/ modifications for ADL. 3=Patient will improve strength/tolerance for activity to enable patient to perform ADL's. OT Education/Plan Problem List/Assessment Assessment: Decreased Activ Tolerance, Decreased UE Strength, Dependent Transfers, Impaired Bed Mobility, Impaired Funct Balance, Impaired I ADL's, Impaired Self-Care Skills Discharge Recommendations Plan/Recommendations: Continue POC Therapy D/C Recommendations: Home w/ Family Support, Occupational Therapy Home Care Equpiment Recommendations-D/C: Hip Kit Barriers to Progress pain management medical complications. Treatment Plan/Plan of Care Treatment,Training & Education: Yes Patient would benefit from OT for education, treatment and training to promote independence in ADL's, mobility, safety and/or upper extremity function for ADL' s. Plan of Care: ADL Retraining, Functional Mobility, UE Funct Exercise/Act Treatment Duration: December 04, 2016 Visits Per Week: 5-6 Agreement: Yes Rehab Potential: Good Time/GCodes Start Time: 10:30 Stop Time: 11:00 Total Time Billed (hr/min): 30 Billed Treatment Time 1, EVmod x 15 minutes (co-treat with PT) Please see above for designated roles in co-treatment. BINTA KAN OT November 20, 2016 11:34
--- NOTE | 2016-11-20 12:02 | Anesthesia-General Post-Op ---
General Patient Condition Mental Status/LOC: Same as Preop Cardiovascular: Satisfactory Nausea/Vomiting: Absent Respiratory: Satisfactory Pain: Controlled Complications: Absent Post Op Complications Complications None Follow Up Care/Instructions Patient Instructions None needed. Anesthesia/Patient Condition Patient Condition Patient is doing well, no complaints, stable vital signs, no apparent adverse anesthesia problems. No complications reported per nursing. ERROL MAN CRNA November 20, 2016 12:02
--- NOTE | 2016-11-20 13:30 | Physical Therapy Daily Note ---
PT Daily Note-Current Subjective Patient is in 10/10 back pain, however, states, "I want to move." Pain Numeric Pain Scale: 10-Worst Possible Pain Location: Posterior Location Body Site: Back Pain Description: Acute Mental Status Patient Orientation: Normal For Age Attachments: Oxygen, Drains, Ventilator, IV Transfers Functional [place] Measure 0=Not Assessed/NA 4=Minimal Assistance 1=Total Assistance 5=Supervision or Setup 2=Maximal Assistance 6=Modified [place] 3=Moderate Assistance 7=Complete IndependenceIRFPAI Quality Coding Scale 6 Independent with activity with or without an assistive device 5 Patient requires set up or clean up by helper. Patient completes activity by themselves 4 Supervision or touching assist (CGA). [place] provide cues , steadying assist 3 The helper provides less than half the effort to complete the activity 2 The helper provides more than half the effort to complete the activity 1 Dependent. The helper does all the effort to complete an activity 7 Patient refused to complete or attempt activity 9 The patient did not perform the activity before the current illness or injury 88 Not attempted due to Medical conditions or safety concerns Transfers (B, C, W/C) (FIM): 4 Scootin Rollin Supine to/from Sit: 4 Sit to/from Stand: 4 Bed to/from Chair: 4 CGA with sit to stand and transfer for safety Gait Training Gait (FIM): 1 Distance (FIM): 1=up to 49 ft Distance: 5' Gait Level of Assist: 4 Gait Persons Needed: 1 Gait Assistive Device: FWW slow, antalgic Exercises Seated Therapy Exercises: Sit to stand Seated Reps: 3 Assessment Patient is progressing with treatment plan and is highly motivated. PT to increase activity as tolerated by patient. PT Short Term Goals Short Term Goals Transfers (B,C,W/C) (FIM): 5 PT Active Directory Administrator Goals Half-Way Goals PT Half-Way Goals Time Frame: November 23, 2016 Transfers (B,C,W/C) (FIM): 6 Gait (FIM): 6 Gait distance (FIM): 3=150 ft Gait Assistive Device: FWW PT Plan Treatment/Plan Treatment Plan: Continue Plan of Care Treatment Plan: Bed Mobility, Education, Functional Activity Patricia, Functional Strength, Gait, Safety, Therapeutic Exercise, Transfers Treatment Duration: November 23, 2016 Visits Per Week: 11 Time/GCodes Time In: 1230 Time Out: 1255 Total Billed Treatment Time: 25 Total Billed Treatment 1 visit FA x 2 25 min AUDREY HAMMER PT November 20, 2016 13:30
[2016-11-20] MEDS: HYDROmorphone (DILAUDID) 2 MG/ML VIAL IVP PRN ×3 (16:05→21:07)
[2016-11-20] MEDS: HYDROmorphone (DILAUDID) 4 MG TAB PO PRN ×2 (16:22→20:48)
--- NOTE | 2016-11-20 16:29 | OPERATIVE REPORT ---
DATE OF SERVICE: 11/19/2016 PREOPERATIVE DIAGNOSIS: Thoracolumbar scoliosis. POSTOPERATIVE DIAGNOSIS: Thoracolumbar scoliosis. PROCEDURE PERFORMED: 1. L4-S1 anterior lumbar antibody fusion for deformity. 2. L4-5 and L5-S1 inner body cage fixation with integral fixation. 3. Allograft for spine injury to morselize. 4. T6 to the pelvis posterior spinal fusion curved deformity. 6. T6 to the pelvis posterior segmental instrumentation. 7. Pelvic fixation at caudal end of construct. 8. Autograft for spine surgery for local. 9. Autograft for spine surgery morselized. DATE AND TIME OF SURGERY: Please see anesthesia record. IMPLANTS: K2M [place], posterior spine instrumentation, K2M [place] interbody PEEK cages with titanium screw fixation, K2M VESUVIUS bone graft, K2M Nile bands. SURGEON: Kati Arrieta MD BUREAU DIRECTOR: Adrian Garcia MD ROLE OF ELEVATOR REPAIR MECHANIC: Aid in retraction of the procedure, aid in implantation and tissue and wound closure. ANESTHESIA: General endotracheal. ESTIMATED BLOOD LOSS: 700 mL. INTRAVENOUS FLUID: Please see anesthesia record. ANTIBIOTICS: Ancef. COMPLICATIONS: None. INDICATION FOR PROCEDURE: The patient is a 71-year-old female progressively intolerable deformity in her back for interventional therapy and desired operative treatment. DESCRIPTION OF PROCEDURE: After adequate induction of general anesthetic, preoperative antibiotics and placement of spinal monitoring, standard intraoperative neuro monitor and was carried out by means of real-time continuous high quality bidirectional mode, audio and visual communication to both the agronomy technician and surgeon by Dr. Cagle was performed to assess SSEPs, EMGs, TCMEPs and TOFs . The patient was placed supine on the operative table. The abdomen was prepped and draped. A left-sided retroperitoneal confirmed at the L4-5 and L5-S1 were carried out without difficulty. Once the levels were confirmed, [place] used retractor was used to hold the vessels retracted and an anterior discectomy was performed with decompression all the way back to the posterior L4-5 was performed. Trial spacer was utilized and the appropriate sized PEEK spacer with allograft bone was packed into position with good fit achieved, 20 mm screws were then used to fixate the device through the cage into the vertebral bodies. Once both levels had been adequately decompressed and fused, the abdomen was closed in layers. The patient turned prone on the Juve table with careful padding to all extremities, sterilely prepped and draped. Posterior thoracolumbar spine, an incision was made from the T6 to the pelvis, full exposure was carried out. Once appropriate level was confirmed, there was some discrepancy between thoracic and lumbar levels as the patient had a transitional vertebra that either 6th lumbar vertebra, but for the sake of counting, we declared 5 lumbar vertebrae and counted up from the sacrum for numbering sake and went to thoracic 6. At this point, instrumentation was started and screws were placed into bilateral L4-5 and S1, bilateral S2 iliac screws were placed, right-sided L3 screw was placed. The remaining M95-G5-D4 levels screws were unable to be placed due to cortical nature of the bone. T11 screws were then placed, 10, 9, 8, 7 and 6 screws. Once all the screws were in place and noted to be satisfactory, checked on imaging and with neuro monitoring, rods were contoured and fashioned. Sublaminar NILE bands were placed across the thoracolumbar junction for additional support. Rods were then placed, final tightening of the contour was performed. Final tightening of the bands was performed and then once all the instrumentation was in place from T6 to the pelvis, the cortication from T6 to the pelvis was performed both posterior and posterolaterally and a combination of local autograft and autograft bone was packed in the posterior portion of the wound for fusion portion of the procedure. Deep drain was placed, wound was closed in layers. The patient was transferred to the recovery room, having tolerated the procedure well with stable spinal monitoring. Job ID: [id number] DocumentID: [id number] Dictated Date: 11/19/2016 15:14:38 Open [place] Date: 11/20/2016 04:12:23 Dictated By: KATI ARRIETA MD [facility]
[2016-11-20] MEDS: NOREPINEPHRINE 4 MG in D5W 250 ML (IVPB) 250 ML IV SCH ×2 (23:03→23:04)
[2016-11-21] VITALS (23 sets, daily range): BP systolic 97–134; BP diastolic 57–79
[2016-11-21] MEDS: HYDROmorphone (DILAUDID) 2 MG/ML VIAL IVP PRN ×10 (00:14→21:14)
[2016-11-21 00:47] LABS: CALCIUM IONIZED 1.01 mmol/L (1.16-1.32); CORRECTED IONIZED CALCIUM 0.94 mmol/L (1.16-1.32)
[2016-11-21] MEDS: HYDROmorphone (DILAUDID) 4 MG TAB PO PRN ×5 (03:16→21:13)
[2016-11-21] MEDS: inSUlin ASPART (NovoLOG) 1 UNIT/0.01 ML (CHARGE PER UNIT) SC SCH ×3 (04:00→21:46)
[2016-11-21 04:31] LABS: BASOPHILS % (AUTO) 0 % (0-10); EOSINOPHILS % (AUTO) 0 % (0-10); LYMPHOCYTES # (AUTO) 0.9 X 10^3 (1.0-4.0); LYMPHOCYTES % (AUTO) 11 % (12-44); MEAN CORPUSCULAR HEMOGLOBIN 29 PG (25-34); MEAN CORPUSCULAR HGB CONC 32 G/DL (32-36); MEAN CORPUSCULAR VOLUME 92 FL (80-99); MEAN PLATELET VOLUME 9.5 FL (7.4-10.4); MONOCYTES # (AUTO) 0.8 X 10^3 (0.0-1.0); MONOCYTES % (AUTO) 10 % (0-12); NEUTROPHILS # (AUTO) 6.5 X 10^3 (1.8-7.8); NEUTROPHILS % (AUTO) 79 % (42-75); PLATELET COUNT 226 10^3/uL (130-400); RED BLOOD COUNT 3.01 10^6/uL (4.35-5.85); RED CELL DISTRIBUTION WIDTH 15.5 % (10.0-14.5); WHITE BLOOD COUNT 8.2 10^3/uL (4.3-11.0)
[2016-11-21 04:41] LABS: ANION GAP 7 MMOL/L (5-14); BLOOD UREA NITROGEN 9 MG/DL (7-18); BUN/CREATININE RATIO 13; CALCIUM 7.4 MG/DL (8.5-10.1); CARBON DIOXIDE 21 MMOL/L (21-32); CHLORIDE 112 MMOL/L (98-107); GFR ESTIMATED > 60; GLUCOSE 119 MG/DL (70-105); MAGNESIUM 2.4 MG/DL (1.8-2.4); POTASSIUM 3.8 MMOL/L (3.6-5.0); SODIUM 140 MMOL/L (135-145)
[2016-11-21] MEDS: POTASSIUM CL 10MEQ/50ML IVPB 50 ML IV SCH (05:08)
[2016-11-21] MEDS: MAGNESIUM 1 GM/100 ML IVPB 100 ML IV SCH (05:09)
[2016-11-21] MEDS: KCL 20 MEQ TAB (K-DUR) PO SCH (05:09)
[2016-11-21] MEDS: PANTOPRAZOLE 40 MG (PROTONIX) TAB PO SCH ×2 (05:17→07:41)
[2016-11-21] MEDS: MULTIVIT W/MINERALS TAB (THERAGRAN M) PO SCH (06:29)
[2016-11-21] MEDS: NS IV 1000 ML 1,000 ML IV SCH ×4 (06:29→17:57)
[2016-11-21] MEDS ORDERED: NS IV 500 ML 500 ML IV SCH (06:55)
--- NOTE | 2016-11-21 06:59 | Pulmonary Progress Note ---
Subjective Subjective/Events-last exam PT is off levophed however still a little hypotensive and tachycardic. Exam Exam Vital Signs Date Time Temp Pulse Resp B/P (MAP) Pulse Ox O2 Delivery O2 Flow Rate FiO2 11/21/16 06:00 122 10 97/63 95 Nasal Cannula 2.00 11/21/16 05:00 121 23 109/62 98 Nasal Cannula 2.00 11/21/16 04:00 98 2.00 11/21/16 04:00 98.5 135 22 115/73 92 Nasal Cannula 2.00 11/21/16 03:00 108 8 102/63 100 Nasal Cannula 2.00 11/21/16 02:00 111 18 104/65 100 Nasal Cannula 2.00 11/21/16 01:00 114 11/21/16 01:00 114 25 108/66 98 Nasal Cannula 2.00 11/21/16 00:00 98 2.00 11/21/16 00:00 95.5 112 12 114/57 99 Nasal Cannula 2.00 11/20/16 23:00 112 9 100/57 100 Nasal Cannula 2.00 11/20/16 22:00 121 20 114/60 99 Nasal Cannula 2.00 11/20/16 21:00 123 20 125/68 90 Nasal Cannula 2.00 11/20/16 20:00 97.3 108 7 109/57 100 Nasal Cannula 2.00 11/20/16 20:00 98 2.00 11/20/16 19:00 106 11/20/16 19:00 106 15 99/56 100 Nasal Cannula 2.00 11/20/16 18:00 133 7 118/67 98 Nasal Cannula 4.00 11/20/16 17:00 129 9 110/63 99 Nasal Cannula 4.00 11/20/16 16:00 108 7 117/64 97 Nasal Cannula 4.00 11/20/16 16:00 97.4 11/20/16 16:00 98 4.00 11/20/16 15:00 103 11 117/72 98 Nasal Cannula 4.00 11/20/16 14:00 109 8 116/82 100 Nasal Cannula 4.00 11/20/16 13:00 118 16 Nasal Cannula 4.00 11/20/16 13:00 128 11/20/16 12:37 97.6 104 16 106/69 100 4.00 11/20/16 12:00 98 4.00 11/20/16 12:00 120 12 116/73 100 Nasal Cannula 4.00 11/20/16 11:06 97.6 102 18 103/61 98 4.00 11/20/16 11:00 108 8 98/66 99 Nasal Cannula 4.00 11/20/16 10:50 97.6 106 16 110/73 98 4.00 11/20/16 10:00 95 8 110/73 99 Nasal Cannula 4.00 11/20/16 09:00 105 11 98/61 97 Nasal Cannula 4.00 11/20/16 08:00 98 4.00 11/20/16 08:00 115 10 102/56 95 Nasal Cannula 4.00 11/20/16 07:00 112 11/20/16 07:00 114 14 99/64 99 Nasal Cannula 4.00 I & O 11/21/16 07:00 Intake Total 3610 ml Output Total 1653 ml Balance 1957 ml General Appearance: No Apparent Distress, WD/WN, Chronically ill, Thin HEENT: PERRL/EOMI, Normal ENT Inspection, Pharynx Normal Neck: Full Range of Motion, Normal Inspection, Non Tender, Supple, Carotid Bruit Respiratory: Chest Non Tender, Lungs Clear, No Accessory Muscle Use, No Respiratory Distress, Decreased Breath Sounds Cardiovascular: Regular Rate, Rhythm, No Edema, No Gallop, No JVD, No Murmur, Normal Peripheral Pulses Gastrointestinal: soft Extremity: Normal Capillary Refill, Normal Inspection, Normal Range of Motion, Non Tender, No Calf Tenderness, No Pedal Edema Neurologic/Psychiatric: Alert, Oriented x3, No Motor/Sensory Deficits, Normal Mood/Affect, Other (frail) Skin: Normal Color, Warm/Dry Lymphatic: No Adenopathy Results Lab Laboratory Tests 11/19/16 17:36 11/20/16 03:17 11/20/16 08:00 11/21/16 04:17 Assessment/Plan Assessment/Plan Thoracolumbar Scoliosis s/p Laminectomy Syndrome L4-S1 Anterior T6-Pelvis Posterior Spinal Fusion for scoliosis -pain control Hypotensions with Acute Blood Loss Anemia - levophed is off post transfusion -repeat 500cc NS bolus -s/p transfuse 1 unit PRBC Metabolic lactic acidosis secondary to intravascular depletion -IVF, transfuse, monitor Tachycardia sinus -IVF Leave in ICU 1 more day. Clinical Quality Measures DVT/VTE Risk/Contraindication: Risk Factor Score Per Nursin RFS Level Per Nursing on Admit: 4+=Very High AIYANA JAIME DO November 21, 2016 06:59
--- NOTE | 2016-11-21 07:26 | Progress Note (SOAP) ---
Subjective Subjective/Events-last exam POD #2 s/p thoracolumbar fusion. Laying in bed MEZA x 4 pain is controlled. She is still tachy and slightly hypotensive and Dr Walker plans to keep her in ICU today - receiving for fluid resuscitation Review of Systems General: No Chills, No Night Sweats HEENT: No Head Aches Pulmonary: No Dyspnea Cardiovascular: No: Chest Pain Neurological: Weakness, No: Change in speech, Confusion, Incoordination, Numbness Objective Exam Vital Signs Date Time Temp Pulse Resp B/P (MAP) Pulse Ox O2 Delivery O2 Flow Rate FiO2 11/21/16 06:00 122 10 97/63 95 Nasal Cannula 2.00 11/21/16 05:00 121 23 109/62 98 Nasal Cannula 2.00 11/21/16 04:00 98 2.00 11/21/16 04:00 98.5 135 22 115/73 92 Nasal Cannula 2.00 11/21/16 03:00 108 8 102/63 100 Nasal Cannula 2.00 11/21/16 02:00 111 18 104/65 100 Nasal Cannula 2.00 11/21/16 01:00 114 11/21/16 01:00 114 25 108/66 98 Nasal Cannula 2.00 11/21/16 00:00 98 2.00 11/21/16 00:00 95.5 112 12 114/57 99 Nasal Cannula 2.00 11/20/16 23:00 112 9 100/57 100 Nasal Cannula 2.00 11/20/16 22:00 121 20 114/60 99 Nasal Cannula 2.00 11/20/16 21:00 123 20 125/68 90 Nasal Cannula 2.00 11/20/16 20:00 97.3 108 7 109/57 100 Nasal Cannula 2.00 11/20/16 20:00 98 2.00 11/20/16 19:00 106 11/20/16 19:00 106 15 99/56 100 Nasal Cannula 2.00 11/20/16 18:00 133 7 118/67 98 Nasal Cannula 4.00 11/20/16 17:00 129 9 110/63 99 Nasal Cannula 4.00 11/20/16 16:00 108 7 117/64 97 Nasal Cannula 4.00 11/20/16 16:00 97.4 11/20/16 16:00 98 4.00 11/20/16 15:00 103 11 117/72 98 Nasal Cannula 4.00 11/20/16 14:00 109 8 116/82 100 Nasal Cannula 4.00 11/20/16 13:00 118 16 Nasal Cannula 4.00 11/20/16 13:00 128 11/20/16 12:37 97.6 104 16 106/69 100 4.00 11/20/16 12:00 98 4.00 11/20/16 12:00 120 12 116/73 100 Nasal Cannula 4.00 11/20/16 11:06 97.6 102 18 103/61 98 4.00 11/20/16 11:00 108 8 98/66 99 Nasal Cannula 4.00 11/20/16 10:50 97.6 106 16 110/73 98 4.00 11/20/16 10:00 95 8 110/73 99 Nasal Cannula 4.00 11/20/16 09:00 105 11 98/61 97 Nasal Cannula 4.00 11/20/16 08:00 98 4.00 11/20/16 08:00 115 10 102/56 95 Nasal Cannula 4.00 I & O 11/21/16 07:00 Intake Total 3610 ml Output Total 1653 ml Balance 1957 ml Capillary Refill : General Appearance: Mild Distress Neck: Normal Inspection, Non Tender Respiratory: No Accessory Muscle Use, No Respiratory Distress Cardiovascular: No JVD, Normal Peripheral Pulses Peripheral Pulses: 2+ Dorsalis Pedis (R), 2+ Left Dors-Pedis (L) Gastrointestinal: non tender, soft, no organomegaly, no pulsatile mass Extremity: Normal Capillary Refill, Normal Inspection, Non Tender, No Calf Tenderness, No Pedal Edema Neurologic/Psychiatric: Alert, Oriented x3, No Motor/Sensory Deficits, Normal Mood/Affect Skin: Normal Color, Warm/Dry Results Lab Laboratory Tests 11/20/16 08:00: Hemoglobin 7.1L, Potassium Level 3.6, Lactic Acid Level 1.17 11/20/16 08:09: Glucometer 201H 11/20/16 11:28: Magnesium Level 2.7H 11/20/16 12:14: Glucometer 115H 11/20/16 17:00: Glucometer 115H 11/20/16 20:46: Glucometer 120H 11/21/16 04:17: White Blood Count 8.2, Red Blood Count 3.01L, Hemoglobin 8.8#L, Hematocrit 28L, Mean Corpuscular Volume 92, Mean Corpuscular Hemoglobin 29, Mean Corpuscular Hemoglobin Concent 32, Red Cell Distribution Width 15.5H, Platelet Count 226, Mean Platelet Volume 9.5, Neutrophils (%) (Auto) 79H, Lymphocytes (%) (Auto) 11L , Monocytes (%) (Auto) 10, Eosinophils (%) (Auto) 0, Basophils (%) (Auto) 0, Neutrophils # (Auto) 6.5, Lymphocytes # (Auto) 0.9L, Monocytes # (Auto) 0.8, Eosinophils # (Auto) 0.0, Basophils # (Auto) 0.0, Sodium Level 140, Potassium Level 3.8, Chloride Level 112H, Carbon Dioxide Level 21, Anion Gap 7, Blood Urea Nitrogen 9, Creatinine 0.70, Estimat Glomerular Filtration Rate > 60, BUN/ Creatinine Ratio 13, Glucose Level 119H, Calcium Level 7.4L, Phosphorus Level 2.0L, Magnesium Level 2.4 Assessment/Plan Assessment/Plan Assess & Plan/Chief Complaint POD #2 s/p thoracolumbar fusion Plan: continue current treatment under care of Dr Walker and Dr Roque, will remain in ICU today for fluid resuscitation and monitoring pain control plan to move to floor tomorrow brace when OOB Clinical Quality Measures DVT/VTE Risk/Contraindication: Risk Factor Score Per Nursin RFS Level Per Nursing on Admit: 4+=Very High LAURA PARDO November 21, 2016 07:26
[2016-11-21 08:00] LABS: CALCIUM PH 7.26
--- NOTE | 2016-11-21 09:25 | Physical Therapy Daily Note ---
PT Daily Note-Current Subjective Patient has pain of 8/10, agrees to PT, has thoracolumbar brace to use today. Appearance Patient in chair post tx with brace on, has nurse call, tray, family in the room. Mental Status Patient Orientation: Person, Place, Situation Attachments: Oxygen, [place] Catheter, IV Transfers Functional [place] Measure 0=Not Assessed/NA 4=Minimal Assistance 1=Total Assistance 5=Supervision or Setup 2=Maximal Assistance 6=Modified [place] 3=Moderate Assistance 7=Complete IndependenceIRFPAI Quality Coding Scale 6 Independent with activity with or without an assistive device 5 Patient requires set up or clean up by helper. Patient completes activity by themselves 4 Supervision or touching assist (CGA). Weinert provide cues , steadying assist 3 The helper provides less than half the effort to complete the activity 2 The helper provides more than half the effort to complete the activity 1 Dependent. The helper does all the effort to complete an activity 7 Patient refused to complete or attempt activity 9 The patient did not perform the activity before the current illness or injury 88 Not attempted due to Medical conditions or safety concerns Transfers (B, C, W/C) (FIM): 2 Scootin Rollin Supine to/from Sit: 2 Sit to/from Stand: 4 Bed to/from Chair: 4 Patient needs cues for safety and hand placement and how to log roll. Gait Training Gait (FIM): 1 Distance: 5' Gait Level of Assist: 4 Gait Persons Needed: 1 Gait Assistive Device: FWW slow, antalgic Exercises Seated Therapy Exercises: Ankle pumps, Long arc quads Seated Reps: 10 Treatments bed mobility and transfers, ambulation, functional strengthening Assessment Current Status: Fair Progress instructed family member on how to don brace PT Short Term Goals Short Term Goals Transfers (B,C,W/C) (FIM): 5 PT Designer And Patternmaker Goals Fpc Goals PT Fpc Goals Time Frame: November 23, 2016 Transfers (B,C,W/C) (FIM): 6 Gait (FIM): 6 Gait distance (FIM): 3=150 ft Gait Assistive Device: FWW PT Plan Problem List Problem List: Activity Tolerance, Functional Strength, Safety, Balance, Gait, Transfer, Bed Mobility, ROM Treatment/Plan Treatment Plan: Continue Plan of Care Treatment Plan: Bed Mobility, Education, Functional Activity Patricia, Functional Strength, Gait, Safety, Therapeutic Exercise, Transfers Treatment Duration: November 23, 2016 Visits Per Week: 11 Safety Risks/Education Patient Education: Gait Training, Transfer Techniques, Correct Positioning, Safety Issues Teaching Recipient: Patient Teaching Methods: Demonstration, Discussion Response to Teaching: Reinforcement Needed Time/GCodes Time In: 855 Time Out: 915 Total Billed Treatment Time: 20 Total Billed Treatment 1 visit FA 20' CHANELLE ST PT November 21, 2016 09:25
--- NOTE | 2016-11-21 09:50 | Diagnostic Imaging Report ---
EXAMINATION: Portable upright radiograph of the chest. INDICATION: Shortness of breath. FINDINGS: The heart size is mildly enlarged. There is left basilar opacity, likely atelectasis, around the hiatal hernia. No significant effusion or pneumothorax. There is thoracolumbar fusion hardware seen with multiple posterior transpedicular screws and connecting rods extending to the lower lumbar spine below the level of the image. IMPRESSION: Hiatal hernia with adjacent left basilar opacity, likely related to atelectasis. Dictated by: Dictated on workstation # [id number]
[2016-11-21] MEDS: ONDANSETRON 4 MG/2 ML (SDV) Z0FRAN IV PRN ×2 (10:51→15:34)
--- NOTE | 2016-11-21 10:55 | Occupational Ther Daily Note ---
OT Current Status-Daily Note Subjective Pt sitting in recliner, sleeping. Pt's daughter present in room. Pt stated that she felt nauseous and was tired. Daughter stated that nrsg wanted pt to stay up in chair until lunch. Mental Status/Objective Patient Orientation: Person, Place, Time, Situation Functional [place] Measure 0=Not Assessed/NA 4=Minimal Assistance 1=Total Assistance 5=Supervision or Setup 2=Maximal Assistance 6=Modified [place] 3=Moderate Assistance 7=Complete [place] Other Treatment Pt was given light resistance (yellow) therapy sponge. Pt was instructed on exercises for gross grasp and pt was able to demonstrate understanding. HERNANDEZ attempted to have pt complete grooming or sponge bath and pt declined. HERNANDEZ will check on pt in afternoon. Call light/phone in reach. All needs met in room. OT Short Term Goals Short Term Goals Time Frame: November 27, 2016 Eating(FIM): 5 Grooming(FIM): 5 Bathing(FIM): 4 Upper Body Dressing(FIM): 5 Lower Body Dressing(FIM): 4 Toileting(FIM): 5 Transfers (B,C,W/C) (FIM): 5 Toilet/Commode Transfer(FIM): 5 Shower Transfer(FIM): 4 Additional Short Term Goals: 1-Demonstrate ADL Tasks, 2-Verbalize Understanding , 3-ImproveStrength/Patricia 1=Demonstrate adherence to instructed precautions during ADL tasks. 2=Patient will verbalize/demonstrate understanding of assistive devices/ modifications for ADL. 3=Patient will improve strength/tolerance for activity to enable patient to perform ADL's. OT Fci Goals Short Story Writer Goals Time Frame: December 04, 2016 Eating (FIM): 6 Grooming(FIM): 6 Bathing(FIM): 5 Upper Body Dressing(FIM): 6 Lower Body Dressing(FIM): 6 Toileting(FIM): 6 Transfers (B,C,W/C) (FIM): 6 Toilet/Commode Transfer(FIM): 6 Shower Transfer(FIM): 5 Additional Goals: 1-Demonstrate ADL Tasks, 2-Verbalize Understanding, 3- ImproveStrength/Patricia 1=Demonstrate adherence to instructed precautions during ADL tasks. 2=Patient will verbalize/demonstrate understanding of assistive devices/ modifications for ADL. 3=Patient will improve strength/tolerance for activity to enable patient to perform ADL's. OT Education/Plan Discharge Recommendations Plan/Recommendations: Continue POC Treatment Plan/Plan of Care Patient would benefit from OT for education, treatment and training to promote independence in ADL's, mobility, safety and/or upper extremity function for ADL' s. Plan of Care: ADL Retraining, Functional Mobility, UE Funct Exercise/Act Treatment Duration: December 04, 2016 Visits Per Week: 5-6 Agreement: Yes Rehab Potential: Good Time/GCodes Start Time: 10:30 Stop Time: 10:38 Total Time Billed (hr/min): 8 Billed Treatment Time 1 visit-EX (8 min) RAMON PORRAS November 21, 2016 10:55
--- NOTE | 2016-11-21 10:58 | Consultation-Cardiology ---
HPI-Cardiology Cardiology Consultation Date of Consultation 11/21/16 Date of Admission Indication: tachycardia HPI Patient is a 71 y/o female with history of HTN, hypothyroidism, scoliosis. S/p thoracolumbar fusion on 11/19/16. Patient was hypotensive and tachycardic postoperatively and brought to the ICU. Received blood transfusion yesterday. Denies and CP or palpitations at this time. Denies any dizziness, lightheadedness or syncope. Reporting some nausea at this time. Telemetry reveals sinus tachycardia with HR in the 110's. Currently on pressors with BP remaining stable at this time. This is a 71 years old lady with history of hypertension and hypothyroidism, patient underwent thoracolumbar fusion on November 19, 2016 she has been doing well, she has been borderline hypotensive and in sinus tachycardia, still having pain at her back. Denied any chest pain or shortness of breath. Denied any syncope or near syncopal episode denied any similar episode in the past. Patient was anemic and received one unit of packed RBCs, still having anemia at this time. 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) Alcohol Use: Denies Use Recreational Drug Use: No Smoking Status: Never a Smoker Recent Foreign Travel: No Recent Infectious Disease Expo: No Recent Hopitalizations: No Physical Abuse Screen: No Sexual Abuse: No Immunizations Up To Date Date of Pneumonia Vaccine: May 02, 2015 Family Medical History Significant Family History: No Pertinent Family Hx Family History: BLADDER CA G8 SISTER Colon cancer G8 BROTHER Hypertension 19 FATHER LIVER CA G8 SISTER SKIN CANCER 19 FATHER Constitutional: No chills, No diaphoresis EENTM: No blurred vision, No double vision, No vision loss Respiratory: No cough, No dyspnea on exertion Cardiovascular: No chest pain, No edema, No Hx of Intervention, No palpitations , No vascular heart diseas Gastrointestinal: No abdominal pain, No constipation, No diarrhea Genitourinary: No dysuria, No frequency Musculoskeletal: back pain Skin: No lesions, No rash Psychiatric/Neurological: Denies Anxiety, Denies Depressed Reviewed Test Results Reviewed Test Results Lab Laboratory Tests 11/20/16 11:28: Magnesium Level 2.7H 11/20/16 12:14: Glucometer 115H 11/20/16 17:00: Glucometer 115H 11/20/16 20:46: Glucometer 120H 11/21/16 04:17: White Blood Count 8.2, Red Blood Count 3.01L, Hemoglobin 8.8#L, Hematocrit 28L, Mean Corpuscular Volume 92, Mean Corpuscular Hemoglobin 29, Mean Corpuscular Hemoglobin Concent 32, Red Cell Distribution Width 15.5H, Platelet Count 226, Mean Platelet Volume 9.5, Neutrophils (%) (Auto) 79H, Lymphocytes (%) (Auto) 11L , Monocytes (%) (Auto) 10, Eosinophils (%) (Auto) 0, Basophils (%) (Auto) 0, Neutrophils # (Auto) 6.5, Lymphocytes # (Auto) 0.9L, Monocytes # (Auto) 0.8, Eosinophils # (Auto) 0.0, Basophils # (Auto) 0.0, Sodium Level 140, Potassium Level 3.8, Chloride Level 112H, Carbon Dioxide Level 21, Anion Gap 7, Blood Urea Nitrogen 9, Creatinine 0.70, Estimat Glomerular Filtration Rate > 60, BUN/ Creatinine Ratio 13, Glucose Level 119H, Calcium Level 7.4L, Phosphorus Level 2.0L, Magnesium Level 2.4 Physical Exam Vital Signs Vital Sign - Last 12Hours 11/19/16 08:27 Temp 98.1 Pulse 82 Resp 16 B/P (MAP) 133/78 Pulse Ox 98 O2 Delivery Room Air Capillary Refill : General Appearance: WD/WN, Mild Distress HEENT: PERRL/EOMI, TMs Normal Neck: Normal Inspection, Non Tender, Supple Respiratory: Chest Non Tender, Lungs Clear, Normal Breath Sounds, No Accessory Muscle Use, No Respiratory Distress Cardiovascular: No Edema, No JVD, No Murmur, Normal Peripheral Pulses, Tachycardia Gastrointestinal: No Pulsatile Mass, Non Tender, Soft Rectal: Deferred Back: No CVA Tenderness Extremity: Non Tender, No Calf Tenderness Neurologic/Psychiatric: Alert, Oriented x3, house builder II-XII Norm as Tested A/P-Cardiology Admission Diagnosis Tachycardia Hypotension Anemia Hypothyroidism Assessment/Plan Tachycardia- Telemetry revealing sinus tachycardia. Will obtain 12 lead ECG, tachycardia likely due to anemia. Continue IVF's and continue to monitor. Will restart home Lopressor once blood pressure will tolerate it. Hypotension- currently off pressors, continue IVF's and continue to monitor. Continue to hold home BP medications at this time. POD #2 s/p thoracolumbar fusion with Dr. Arrieta Post-op anemia- received blood transfusion yesterday. Continue to monitor H/H closely. Hypothyroidism- continue to monitor. Nausea- continue Zofran PRN HTN- currently hypotensive at this time, continue to hold BP medications, monitor BP/HR Thank you for allowing us to participate in the management of Ms. Figueroa. This is Nicole Ocampo PA-C as a scribe for Dr. Kaur. This is Dr. Kaur, I have seen and evaluated the patient with Nicole, interview the patient perform physical examination, discussed the management plan, I agree with the current scribe, in summary this is a 71 years old lady who underwent thoracolumbar fusion surgery on November 19, 2016, post operatively she was anemic requiring blood transfusion has been in sinus tachycardia. She denied any chest pain or shortness of breath denied any palpitation, no fever or chills on examination lungs were clear to auscultation, heart is tachycardic with no murmurs. Patient is receiving IV fluid, has been on Lopressor as an outpatient which will be restarted today and I will monitor her blood pressure, monitor H&H, may require blood transfusion. Continue to monitor her electrolytes. I reviewed the current note and made a few minor modification and used Italic Font Clinical Quality Measures DVT/VTE Risk/Contraindication: Risk Factor Score Per Nursin RFS Level Per Nursing on Admit: 4+=Very High NICOLE VOGEL November 21, 2016 10:58 KAREN KAUR MD November 21, 2016 15:44
--- NOTE | 2016-11-21 11:02 | Progress Note-Hospitalist ---
Progress Note HPI/CC on Admission CC: Medical management following spine surgery HPI: This is a 71-year-old white female patient of Allison Rojo that presents to the ICU after an uncomplicated spine surgery per Dr. Arrieta but did become hypotensive requiring pressor therapy and IV fluids after surgery and in recovery. Dr. Walker was consulted for critical illness and IV fluids and pressor therapy were both initiated with good results but her repeat hemoglobin is 7.1 likely will require transfusion. Overall she feels weak but pain is controlled after pain medication as given and overall she denies a chest pain or shortness of breath. I review her home medication list and review vitals and labs. Progress Notes/Assess & Plan Date Seen 11/21/16 Admission Dx/Process Assessment: Hypotension following spine surgery Chronic debility Post op anemia Hypothyroidism GERD HLP Diagonsis/Assessment & Plan Chart Review: No fever Vital stable Still tachycardic at 113 Received 1 unit blood Off pressers WBC 8.2 Hgb 8.1 after 7.1 yesterday K+ 3.8 Creat normal mobile patrol officer: Pt is experiencing pain and has received Dilaudid Pt vomited yesterday, but this may have been due to severe pain Patient Interview: Pt is in good spirits. Pt has not been eating much but she will try to eat to improve her condition. Physical exam stable. Lungs sound perfect. Pt has been using her breathing machine AFVSS, Pleasant, O x 3, frail, pale Tachycardic, CTAB no rales noted No edema Laboratory Tests 11/21/16 04:17 Assessment: Hypotension following spine surgery requiring IVF, pressors and then blood now improved by tachycardic so consulting Cardiology Chronic debility Post op anemia s/p 1 unit of blood Hypothyroidism GERD HLP Plan: Very slow recovery expected so will do inpatient rehabilitation eval Monitor blood work closely Advance diet Cardiology consult for tachycardia DC Accuchecks Scribed by Lauren Gallegos under the direct supervision of Dr. Vazquez. DONNIE VAZQUEZ DO November 21, 2016 11:02
[2016-11-21] MEDS: BACLOFEN 10 MG (LIORESAL) TAB PO PRN (12:30)
[2016-11-21] MEDS: DOCUSATE SODIUM 100 MG (COLACE) CAP PO SCH ×2 (12:54→21:13)
--- NOTE | 2016-11-21 14:56 | Physical Therapy Daily Note ---
PT Daily Note-Current Subjective Patient in bed pre tx, very tired, she does not want to get out of bed but agrees to bed exercises. Patient states she has 8/10 pain in her back. Appearance Patient in bed post tx with nurse call, phone, tray, all needs met. Family in the room. Mental Status Patient Orientation: Normal For Age Attachments: Oxygen, IV Transfers Functional [place] Measure 0=Not Assessed/NA 4=Minimal Assistance 1=Total Assistance 5=Supervision or Setup 2=Maximal Assistance 6=Modified [place] 3=Moderate Assistance 7=Complete IndependenceIRFPAI Quality Coding Scale 6 Independent with activity with or without an assistive device 5 Patient requires set up or clean up by helper. Patient completes activity by themselves 4 Supervision or touching assist (CGA). [place] provide cues , steadying assist 3 The helper provides less than half the effort to complete the activity 2 The helper provides more than half the effort to complete the activity 1 Dependent. The helper does all the effort to complete an activity 7 Patient refused to complete or attempt activity 9 The patient did not perform the activity before the current illness or injury 88 Not attempted due to Medical conditions or safety concerns Exercises Supine Ex: Ankle pumps, Quad Set, Heel Slides, Short Arc Quads, Straight leg raise, Hip abd/add Supine Reps: 10 Treatments functional strengthening Assessment Current Status: Poor Progress Patient very fatigued, did not want to get out of bed because she is so tired. PT Short Term Goals Short Term Goals Transfers (B,C,W/C) (FIM): 5 PT Fci Goals Match Maker Goals PT Fci Goals Time Frame: November 23, 2016 Transfers (B,C,W/C) (FIM): 6 Gait (FIM): 6 Gait distance (FIM): 3=150 ft Gait Assistive Device: FWW PT Plan Problem List Problem List: Activity Tolerance, Functional Strength, Safety, Balance, Gait, Transfer, Bed Mobility, ROM Treatment/Plan Treatment Plan: Continue Plan of Care Treatment Plan: Bed Mobility, Education, Functional Activity Patricia, Functional Strength, Gait, Safety, Therapeutic Exercise, Transfers Treatment Duration: November 23, 2016 Visits Per Week: 11 Safety Risks/Education Patient Education: Correct Positioning, Safety Issues Teaching Recipient: Patient Teaching Methods: Demonstration, Discussion Response to Teaching: Reinforcement Needed Time/GCodes Time In: 1440 Time Out: 1455 Total Billed Treatment Time: 15 Total Billed Treatment 1 visit EX 15' KRTEK,CHANELLE PT November 21, 2016 14:56
[2016-11-21] MEDS: meTOprolol TARTRATE 25 MG (LOPRESSOR) TABLET PO SCH (21:13)
[2016-11-22] VITALS (23 sets, daily range): BP systolic 97–152; BP diastolic 53–92
[2016-11-22] MEDS: NS IV 1000 ML 1,000 ML IV SCH ×3 (00:37→21:55)
[2016-11-22] MEDS: HYDROmorphone (DILAUDID) 2 MG/ML VIAL IVP PRN ×5 (02:17→22:04)
[2016-11-22 05:16] LABS: MEAN PLATELET VOLUME 9.6 FL (7.4-10.4); RED BLOOD COUNT 2.54 10^6/uL (4.35-5.85); RED CELL DISTRIBUTION WIDTH 15.4 % (10.0-14.5); WHITE BLOOD COUNT 7.1 10^3/uL (4.3-11.0)
[2016-11-22] MEDS ORDERED: NS IV 500 ML 500 ML IV SCH (05:29)
[2016-11-22] MEDS ORDERED: DIAZEPAM 5 MG (VALIUM) TABLET PO PRN (05:30)
[2016-11-22 05:39] LABS: ALANINE AMINOTRANSFERASE 10 U/L (0-55); ALBUMIN 2.4 G/DL (3.2-4.5); ANION GAP 6 MMOL/L (5-14); ASPARTATE AMINO TRANSFERASE 19 U/L (5-34); BILIRUBIN,TOTAL 0.4 MG/DL (0.1-1.0); BLOOD UREA NITROGEN 8 MG/DL (7-18); BUN/CREATININE RATIO 14; CARBON DIOXIDE 22 MMOL/L (21-32); CHLORIDE 114 MMOL/L (98-107); CREATININE SERUM 0.57 MG/DL (0.60-1.30); GFR ESTIMATED > 60; GLUCOSE 106 MG/DL (70-105); MAGNESIUM 1.9 MG/DL (1.8-2.4); PHOSPHORUS 1.3 MG/DL (2.3-4.7); POTASSIUM 3.5 MMOL/L (3.6-5.0); SODIUM 142 MMOL/L (135-145)
--- NOTE | 2016-11-22 05:40 | Progress Note (SOAP) ---
Subjective Subjective/Events-last exam POD #3, s/p L4-S1 ALIF, T6-S2 PSF VSS Patient complains of pain Review of Systems General: No Chills Pulmonary: No Cough Cardiovascular: No: Chest Pain Gastrointestinal: No: Nausea, Vomiting Genitourinary: No Incontinence, No Retention Musculoskeletal: back pain, No: leg pain Neurological: No: Numbness, Weakness Objective Exam Vital Signs Date Time Temp Pulse Resp B/P (MAP) Pulse Ox O2 Delivery O2 Flow Rate FiO2 11/22/16 04:00 98 2.00 11/22/16 03:00 106 11 102/64 97 Nasal Cannula 2.00 11/22/16 02:00 108 18 116/76 100 Nasal Cannula 2.00 11/22/16 01:01 98 11/22/16 01:00 98 14 101/58 100 Nasal Cannula 2.00 11/22/16 00:00 98.6 103 11 103/53 100 Nasal Cannula 2.00 11/22/16 00:00 98 2.00 11/21/16 23:00 104 19 99/58 99 Nasal Cannula 2.00 11/21/16 22:00 138 7 102/76 90 Nasal Cannula 2.00 11/21/16 21:00 121 12 129/75 100 Nasal Cannula 2.00 11/21/16 20:00 122 11 130/78 100 Nasal Cannula 2.00 11/21/16 20:00 98 2.00 11/21/16 19:06 121 11/21/16 19:00 99.6 115 8 118/78 97 Nasal Cannula 2.00 11/21/16 18:24 98.6 11/21/16 18:00 115 12 125/75 99 Nasal Cannula 2.00 11/21/16 17:00 117 11 117/73 99 Nasal Cannula 2.00 11/21/16 16:00 98 2.00 11/21/16 16:00 118 12 134/76 98 Nasal Cannula 2.00 11/21/16 15:00 116 14 124/76 97 Nasal Cannula 2.00 11/21/16 14:00 121 15 127/74 98 Nasal Cannula 2.00 11/21/16 13:00 116 14 132/76 99 Nasal Cannula 2.00 11/21/16 13:00 115 11/21/16 12:00 98.6 11/21/16 12:00 120 8 127/79 98 Nasal Cannula 2.00 11/21/16 12:00 98 2.00 11/21/16 11:00 116 16 121/72 100 Nasal Cannula 2.00 11/21/16 10:00 116 24 119/72 99 Nasal Cannula 2.00 11/21/16 09:00 123 9 Nasal Cannula 2.00 11/21/16 08:48 2.00 11/21/16 08:00 97.6 11/21/16 08:00 130 12 128/73 99 Nasal Cannula 2.00 11/21/16 08:00 98 2.00 11/21/16 07:00 113 11/21/16 07:00 118 13 118/66 97 Nasal Cannula 2.00 11/21/16 06:00 122 10 97/63 95 Nasal Cannula 2.00 I & O 11/22/16 07:00 Intake Total 4210 ml Output Total 1798 ml Balance 2412 ml Capillary Refill : General Appearance: No Apparent Distress, WD/WN Respiratory: Chest Non Tender, No Accessory Muscle Use Cardiovascular: Normal Peripheral Pulses Gastrointestinal: non tender, distended Extremity: Normal Capillary Refill Neurologic/Psychiatric: Alert, Oriented x3, No Motor/Sensory Deficits, Normal Mood/Affect, assistant designer II-XII Norm as Tested Skin: Other (Dressing CDI) Results Lab Laboratory Tests 11/22/16 05:00: White Blood Count 7.1, Red Blood Count 2.54L, Hemoglobin 7.5L, Hematocrit 24L, Mean Corpuscular Volume 93, Mean Corpuscular Hemoglobin 30, Mean Corpuscular Hemoglobin Concent 32, Red Cell Distribution Width 15.4H, Platelet Count 192, Mean Platelet Volume 9.6 Assessment/Plan Assessment/Plan Assess & Plan/Chief Complaint Thoracolumbar kyphoscoliosis S/P L4-S1 ALIF, T6-S2 PSF Acute blood loss anemia, post-operative Transfuse 1 unit PRBC at this time Add valium for muscle spasm Ok for transfer to floor later today, if Dr. Walker agrees Clinical Quality Measures DVT/VTE Risk/Contraindication: Risk Factor Score Per Nursin RFS Level Per Nursing on Admit: 4+=Very High CANDACE MATUTE November 22, 2016 05:40
[2016-11-22] MEDS: BACLOFEN 10 MG (LIORESAL) TAB PO PRN ×2 (05:56→22:04)
[2016-11-22] MEDS: KCL 20 MEQ TAB (K-DUR) PO SCH (06:50)
[2016-11-22] MEDS: POTASSIUM CL 10MEQ/50ML IVPB 50 ML IV SCH ×3 (06:50→09:37)
[2016-11-22] MEDS: MAGNESIUM 1 GM/100 ML IVPB 100 ML IV SCH (06:51)
[2016-11-22] MEDS: MULTIVIT W/MINERALS TAB (THERAGRAN M) PO SCH (06:51)
--- NOTE | 2016-11-22 07:23 | Pulmonary Progress Note ---
Exam Exam Vital Signs Date Time Temp Pulse Resp B/P (MAP) Pulse Ox O2 Delivery O2 Flow Rate FiO2 11/22/16 07:00 98.0 106 18 120/75 98 2.00 11/22/16 06:40 98.0 106 19 126/71 98 2.00 11/22/16 06:00 110 11 129/84 100 Nasal Cannula 2.00 11/22/16 05:00 100 11 110/62 100 Nasal Cannula 2.00 11/22/16 04:00 98 2.00 11/22/16 04:00 97.8 98 11 105/68 100 Nasal Cannula 2.00 11/22/16 03:00 106 11 102/64 97 Nasal Cannula 2.00 11/22/16 02:00 108 18 116/76 100 Nasal Cannula 2.00 11/22/16 01:01 98 11/22/16 01:00 98 14 101/58 100 Nasal Cannula 2.00 11/22/16 00:00 98.6 103 11 103/53 100 Nasal Cannula 2.00 11/22/16 00:00 98 2.00 11/21/16 23:00 104 19 99/58 99 Nasal Cannula 2.00 11/21/16 22:00 138 7 102/76 90 Nasal Cannula 2.00 11/21/16 21:00 121 12 129/75 100 Nasal Cannula 2.00 11/21/16 20:00 122 11 130/78 100 Nasal Cannula 2.00 11/21/16 20:00 98 2.00 11/21/16 19:06 121 11/21/16 19:00 99.6 115 8 118/78 97 Nasal Cannula 2.00 11/21/16 18:24 98.6 11/21/16 18:00 115 12 125/75 99 Nasal Cannula 2.00 11/21/16 17:00 117 11 117/73 99 Nasal Cannula 2.00 11/21/16 16:00 98 2.00 11/21/16 16:00 118 12 134/76 98 Nasal Cannula 2.00 11/21/16 15:00 116 14 124/76 97 Nasal Cannula 2.00 11/21/16 14:00 121 15 127/74 98 Nasal Cannula 2.00 11/21/16 13:00 116 14 132/76 99 Nasal Cannula 2.00 11/21/16 13:00 115 11/21/16 12:00 98.6 11/21/16 12:00 120 8 127/79 98 Nasal Cannula 2.00 11/21/16 12:00 98 2.00 11/21/16 11:00 116 16 121/72 100 Nasal Cannula 2.00 11/21/16 10:00 116 24 119/72 99 Nasal Cannula 2.00 11/21/16 09:00 123 9 Nasal Cannula 2.00 11/21/16 08:48 2.00 11/21/16 08:00 97.6 11/21/16 08:00 130 12 128/73 99 Nasal Cannula 2.00 11/21/16 08:00 98 2.00 I & O 11/22/16 07:00 Intake Total 4210 ml Output Total 2108 ml Balance 2102 ml General Appearance: No Apparent Distress, WD/WN HEENT: PERRL/EOMI, TMs Normal Neck: Normal Inspection, Non Tender, Supple Respiratory: Chest Non Tender, No Accessory Muscle Use Cardiovascular: Normal Peripheral Pulses Peripheral Pulses: 2+ Dorsalis Pedis (R), 2+ Left Dors-Pedis (L) Gastrointestinal: non tender, distended Extremity: Normal Capillary Refill Neurologic/Psychiatric: Alert, Oriented x3, No Motor/Sensory Deficits, Normal Mood/Affect, price lister II-XII Norm as Tested Skin: Other (Dressing CDI) Lymphatic: No Adenopathy Results Lab Laboratory Tests 11/20/16 08:00 11/21/16 04:17 11/22/16 05:00 Assessment/Plan Assessment/Plan Thoracolumbar Scoliosis s/p Laminectomy Syndrome L4-S1 Anterior T6-Pelvis Posterior Spinal Fusion for scoliosis -pain control Hypotensions with Acute Blood Loss Anemia -wean levophed -transfuse 1 unit PRBC Metabolic lactic acidosis secondary to intravascular depletion -IVF, transfuse, monitor Tachycardia Clinical Quality Measures DVT/VTE Risk/Contraindication: Risk Factor Score Per Nursin RFS Level Per Nursing on Admit: 4+=Very High AIYANA JAIME DO November 22, 2016 07:23
[2016-11-22] MEDS: meTOprolol TARTRATE 25 MG (LOPRESSOR) TABLET PO SCH ×2 (08:23→22:04)
[2016-11-22] MEDS: HYDROmorphone (DILAUDID) 4 MG TAB PO PRN (08:23)
[2016-11-22] MEDS: DOCUSATE SODIUM 100 MG (COLACE) CAP PO SCH ×2 (08:23→22:04)
--- NOTE | 2016-11-22 10:38 | Physical Therapy Daily Note ---
PT Daily Note-Current Subjective Patient having difficulty keeping eye open due to lethargy from medication per RN and report. Pain Numeric Pain Scale: 8 Location: Posterior, Incisional Location Body Site: Back Pain Description: Pressure, Acute Appearance total body edema Mental Status Patient Orientation: Person, Time, Situation, Listless Attachments: Oxygen, Drains, Landis Catheter, IV Transfers Functional [place] Measure 0=Not Assessed/NA 4=Minimal Assistance 1=Total Assistance 5=Supervision or Setup 2=Maximal Assistance 6=Modified [place] 3=Moderate Assistance 7=Complete IndependenceIRFPAI Quality Coding Scale 6 Independent with activity with or without an assistive device 5 Patient requires set up or clean up by helper. Patient completes activity by themselves 4 Supervision or touching assist (CGA). [place] provide cues , steadying assist 3 The helper provides less than half the effort to complete the activity 2 The helper provides more than half the effort to complete the activity 1 Dependent. The helper does all the effort to complete an activity 7 Patient refused to complete or attempt activity 9 The patient did not perform the activity before the current illness or injury 88 Not attempted due to Medical conditions or safety concerns Transfers (B, C, W/C) (FIM): 4 Scootin Rollin Supine to/from Sit: 4 Sit to/from Stand: 4 close CGA due to lethargy Gait Training Gait (FIM): 2 Distance (FIM): 1=816-81 ft Distance: 75' Gait Level of Assist: 3 Gait Persons Needed: 2 Gait Assistive Device: FWW dependent assist to tasneem back brace; mod assist with mobility for safety due to patient is lethargic and slow to verbally respond; slow, antalgic gait sequence Assessment Patient requires time to complete all functional tasks due to lethargy and slow with verbal and physical responses. All vitals taken by RN after treatment with all WNL. PT to increase activity as tolerated by patient. PT Short Term Goals Short Term Goals Transfers (B,C,W/C) (FIM): 5 PT District Wire Chief Goals Retirement Goals PT Retirement Goals Time Frame: November 23, 2016 Transfers (B,C,W/C) (FIM): 6 Gait (FIM): 6 Gait distance (FIM): 3=150 ft Gait Assistive Device: FWW PT Plan Treatment/Plan Treatment Plan: Continue Plan of Care Treatment Plan: Bed Mobility, Education, Functional Activity Patricia, Functional Strength, Gait, Safety, Therapeutic Exercise, Transfers Treatment Duration: November 23, 2016 Visits Per Week: 11 Time/GCodes Time In: 940 Time Out: 1003 Total Billed Treatment Time: 23 Total Billed Treatment 1 visit GT 15 min FA 8 min AUDREY HAMMER PT November 22, 2016 10:38
--- NOTE | 2016-11-22 11:39 | Physical Therapy Daily Note ---
PT Daily Note-Current Subjective Patient is in chair and agrees to PT. Pain Numeric Pain Scale: 10-Worst Possible Pain Location: Posterior Location Body Site: Back Pain Description: Acute Mental Status Patient Orientation: Listless, Normal For Age Attachments: Oxygen, Landis Catheter, IV Transfers Functional [place] Measure 0=Not Assessed/NA 4=Minimal Assistance 1=Total Assistance 5=Supervision or Setup 2=Maximal Assistance 6=Modified [place] 3=Moderate Assistance 7=Complete IndependenceIRFPAI Quality Coding Scale 6 Independent with activity with or without an assistive device 5 Patient requires set up or clean up by helper. Patient completes activity by themselves 4 Supervision or touching assist (CGA). [place] provide cues , steadying assist 3 The helper provides less than half the effort to complete the activity 2 The helper provides more than half the effort to complete the activity 1 Dependent. The helper does all the effort to complete an activity 7 Patient refused to complete or attempt activity 9 The patient did not perform the activity before the current illness or injury 88 Not attempted due to Medical conditions or safety concerns Transfers (B, C, W/C) (FIM): 5 Sit to/from Stand: 5 Exercises Seated Therapy Exercises: Ankle pumps, Long arc quads, Hip flexion Seated Reps: 15 (x 2 sets) Standing: Marching (20reps x 2 sets) Standing Reps: 20 Assessment Patient continues to be lethargic, however, appears to be slightly improving with this. Patient requires recovery periods secondary to fatigue and SOA. All vitals remain WNL. PT Short Term Goals Short Term Goals Transfers (B,C,W/C) (FIM): 5 PT Custodial Goals Custodial Goals PT Custodial Goals Time Frame: November 23, 2016 Transfers (B,C,W/C) (FIM): 6 Gait (FIM): 6 Gait distance (FIM): 3=150 ft Gait Assistive Device: FWW PT Plan Treatment/Plan Treatment Plan: Continue Plan of Care Treatment Plan: Bed Mobility, Education, Functional Activity Patricia, Functional Strength, Gait, Safety, Therapeutic Exercise, Transfers Treatment Duration: November 23, 2016 Visits Per Week: 11 Time/GCodes Time In: 1105 Time Out: 1128 Total Billed Treatment Time: 23 Total Billed Treatment 1 visit EX x 2 23 min AUDREY HAMMER PT November 22, 2016 11:39
--- NOTE | 2016-11-22 11:44 | Progress Note-Hospitalist ---
Progress Note HPI/CC on Admission CC: Medical management following spine surgery HPI: This is a 71-year-old white female patient of Allison Rojo that presents to the ICU after an uncomplicated spine surgery per Dr. Arrieta but did become hypotensive requiring pressor therapy and IV fluids after surgery and in recovery. Dr. Walker was consulted for critical illness and IV fluids and pressor therapy were both initiated with good results but her repeat hemoglobin is 7.1 likely will require transfusion. Overall she feels weak but pain is controlled after pain medication as given and overall she denies a chest pain or shortness of breath. I review her home medication list and review vitals and labs. Progress Notes/Assess & Plan Date Seen 11/22/16 Admission Dx/Process Assessment: Hypotension following spine surgery Chronic debility Post op anemia Hypothyroidism GERD HLP Diagonsis/Assessment & Plan Chart Review: WBC 7.1 Hgb 7.5 K+ 3.5 Albumin 2.4 Had recurrent vomiting yesterday so I placed her NPO Conferred with Dr. Walker and he will transfer to ICU sept down Still requiring large amounts of narcotics artist suspect: Transfused 1 unit blood this morning to total of 2 units Pt has been refusing to move and still dependent on narcotics PT Review: Pt was very limp upon ambulation Patient Interview: Pt's dependency on pain medication was discussed with pt. Pt has not vomited today Pt has been flatulent but has had no BMs Pt denies gastrointestinal problems at home Physical exam stable. Bowel sounds auscultated Pt has not felt nauseated today and she will start a liquid diet PT has seen pt today. Minimizing pain medication was discussed with pts family. Pt will need to ambulate and reduce the amount of pain medication she is on or she will have to go to [facility] tomorrow. AFVSS, Pleasant, O x 3, frail, pale, slightly less sedated Tachycardic, CTAB no rales noted No edema Laboratory Tests 11/22/16 05:00 11/22/16 11:00 Assessment: Hypotension following spine surgery requiring IVF, pressors and then blood now improved by tachycardic so consulting Cardiology Chronic debility Post op anemia s/p 2 units of blood Hypothyroidism GERD HLP Assessment: Hypotension following spine surgery Chronic debility Post op anemia Hypothyroidism GERD HLP Slow recovery Plan: Very slow recovery expected so will do inpatient rehabilitation eval hopefully soon Monitor blood work closely Cardiology consult for tachycardia Clear liquid diet ICU step down Repeat labs in am Improve movement and ambulation Reduce amount of pain medication Swingbed, possible in-pt rehab Saturday Scribed by Lauren Gallegos under the direct supervision of Dr. Vazquez. DONNIE VAZQUEZ DO November 22, 2016 11:44
[2016-11-22] MEDS: HYDROcodone/APAP 5 MG/325 MG (LORTAB) TAB PO PRN (13:01)
--- NOTE | 2016-11-22 13:41 | Cardiology Progress Note ---
Subjective Subjective/Events-last exam Patient is sitting up in chair. No new complaints. States nausea has improved. Denies any CP or dyspnea. Review of Systems General: No Night Sweats, No Fatigue, No Malaise HEENT: No Visual Changes, No Dysphasia, No Sore Throat Pulmonary: No Dyspnea, No Cough, No Pleuritic Chest Pain Cardiovascular: No: Chest Pain, Edema, Palpitations, Paroxysmal Noc. Dyspnea Gastrointestinal: No: Abdominal Pain, Nausea, Vomiting Genitourinary: No Dysuria, No Frequency Musculoskeletal: No: back pain, neck pain Neurological: No: Change in speech, Confusion, Numbness, Weakness Objective-Cardiology Exam Last Set of Vital Signs Vital Signs Capillary Refill : I&O Intake and Output 11/22/16 00:00 Intake Total 3270 ml Output Total 2021 ml Balance 1249 ml Intake Oral 770 ml IV Total 2500 ml Output Urine Total 1540 ml Drainage Total 481 ml General: Alert, Oriented X3, Cooperative HEENT: Atraumatic, PERRLA Neck: Supple, No JVD, No Thyromegaly Lungs: Clear to Auscultation, Normal Air Movement Heart: Normal S1, Normal S2, No Murmurs, Other (slightly tachycardic) Abdomen: Normal Bowel Sounds, Soft, No Tenderness, No Hepatosplenomegaly Extremities: No Edema, Normal Pulses Skin: No Rashes, No Significant Lesion Neuro: Normal Speech, Cranial Nerves 3-12 NL Psych/Mental Status: Mental Status NL, Mood NL Results Lab Laboratory Tests 11/22/16 05:00 11/22/16 11:00 A/P-Cardiology Admission Diagnosis Tachycardia Hypotension Anemia Hypothyroidism Assessment/Plan Tachycardia- Telemetry revealing sinus tachycardia. HR slightly improved today. Continue Lopressor and continue to monitor. Tachycardia likely due to anemia. Hypotension- Improved. Tolerating Lopressor. Continue to monitor. POD #3 s/p thoracolumbar fusion with Dr. Arrieta Post-op anemia- s/p blood transfusion. Continue to monitor H/H. Hypothyroidism- continue to monitor. Nausea- improved. continue Zofran PRN HTN- controlled. Continue to monitor BP/HR Clinical Quality Measures DVT/VTE Risk/Contraindication: Risk Factor Score Per Nursin RFS Level Per Nursing on Admit: 4+=Very High TERRA VOGEL November 22, 2016 13:41
--- NOTE | 2016-11-22 15:09 | Cardiology Progress Note ---
Subjective Subjective/Events-last exam patient is feeling better, heart rate is better, received blood transfusion. Review of Systems General: No Chills, No Night Sweats, No Fatigue, No Malaise, No Appetite, No Other HEENT: No Head Aches, No Visual Changes, No Eye Pain, No Ear Pain, No Dysphasia , No Sinus Congestion, No Post Nasal Drip, No Sore Throat, No Other Pulmonary: No Dyspnea, No Cough, No Pleuritic Chest Pain, No Other Cardiovascular: No: Chest Pain, Edema, Lt Headedness, Orthopnea, Other, Palpitations, Paroxysmal Noc. Dyspnea Objective-Cardiology Exam Last Set of Vital Signs Vital Signs 11/22/16 13:00 Pulse 98 Capillary Refill : I&O Intake and Output 11/22/16 00:00 Intake Total 3270 ml Output Total 2021 ml Balance 1249 ml Intake Oral 770 ml IV Total 2500 ml Output Urine Total 1540 ml Drainage Total 481 ml General: Alert, Oriented X3, Cooperative HEENT: Atraumatic, PERRLA Neck: Supple, No JVD, No Thyromegaly Lungs: Clear to Auscultation, Normal Air Movement Heart: Normal S1, Normal S2, No Murmurs, Other (slightly tachycardic) Abdomen: Normal Bowel Sounds, Soft, No Tenderness, No Hepatosplenomegaly Extremities: No Edema, Normal Pulses Skin: No Rashes, No Significant Lesion Neuro: Normal Speech, Cranial Nerves 3-12 NL Psych/Mental Status: Mental Status NL, Mood NL Results Lab Laboratory Tests 11/22/16 05:00 11/22/16 11:00 A/P-Cardiology Admission Diagnosis Tachycardia Hypotension Anemia Hypothyroidism Assessment/Plan Tachycardia- Telemetry revealing sinus tachycardia. HR slightly improved today. Continue Lopressor and continue to monitor, heart rate is better. Continue to monitor. Hypotension- Improved. Tolerating Lopressor. Continue to monitor. POD #3 s/p thoracolumbar fusion with Dr. Arrieta Post-op anemia- s/p blood transfusion. Continue to monitor H/H. Hypothyroidism- continue to monitor. Nausea- improved. continue Zofran PRN HTN- controlled. Continue to monitor BP/HR Clinical Quality Measures DVT/VTE Risk/Contraindication: Risk Factor Score Per Nursin RFS Level Per Nursing on Admit: 4+=Very High KAREN ANTUNEZ MD November 22, 2016 15:09
--- NOTE | 2016-11-22 15:10 | Occupational Ther Daily Note ---
OT Current Status-Daily Note Subjective Pt sitting in chair with spouse present, agrees to therapy. Pt reports pain, but does not rate. Mental Status/Objective Functional [place] Measure 0=Not Assessed/NA 4=Minimal Assistance 1=Total Assistance 5=Supervision or Setup 2=Maximal Assistance 6=Modified [place] 3=Moderate Assistance 7=Complete [place] ADL-Treatment Instruction provided regarding use of adaptive equipment for LE dressing. Pt demonstrated ability to doff socks with SBA using dressing stick. Donned socks with minimal assistance and increased time using sock aid. Will continue adaptive equipment training in future sessions. Pt sitting in chair with needs met and spouse present after session. OT Short Term Goals Short Term Goals Time Frame: November 27, 2016 Eating(FIM): 5 Grooming(FIM): 5 Bathing(FIM): 4 Upper Body Dressing(FIM): 5 Lower Body Dressing(FIM): 4 Toileting(FIM): 5 Transfers (B,C,W/C) (FIM): 5 Toilet/Commode Transfer(FIM): 5 Shower Transfer(FIM): 4 Additional Short Term Goals: 1-Demonstrate ADL Tasks, 2-Verbalize Understanding , 3-ImproveStrength/Patricia 1=Demonstrate adherence to instructed precautions during ADL tasks. 2=Patient will verbalize/demonstrate understanding of assistive devices/ modifications for ADL. 3=Patient will improve strength/tolerance for activity to enable patient to perform ADL's. OT Tractor Engine Assembler Goals Senior Care Goals Time Frame: December 04, 2016 Eating (FIM): 6 Grooming(FIM): 6 Bathing(FIM): 5 Upper Body Dressing(FIM): 6 Lower Body Dressing(FIM): 6 Toileting(FIM): 6 Transfers (B,C,W/C) (FIM): 6 Toilet/Commode Transfer(FIM): 6 Shower Transfer(FIM): 5 Additional Goals: 1-Demonstrate ADL Tasks, 2-Verbalize Understanding, 3- ImproveStrength/Patricia 1=Demonstrate adherence to instructed precautions during ADL tasks. 2=Patient will verbalize/demonstrate understanding of assistive devices/ modifications for ADL. 3=Patient will improve strength/tolerance for activity to enable patient to perform ADL's. OT Education/Plan Discharge Recommendations Plan/Recommendations: Continue POC Treatment Plan/Plan of Care Patient would benefit from OT for education, treatment and training to promote independence in ADL's, mobility, safety and/or upper extremity function for ADL' s. Plan of Care: ADL Retraining, Functional Mobility, UE Funct Exercise/Act Treatment Duration: December 04, 2016 Visits Per Week: 5-6 Agreement: Yes Rehab Potential: Good Time/GCodes Start Time: 14:45 Stop Time: 14:55 Total Time Billed (hr/min): 10 Billed Treatment Time 1 visit, ADL(10minutes) CHETAN BRASHER OT November 22, 2016 15:10
[2016-11-23] VITALS (9 sets, daily range): BP systolic 100–154; BP diastolic 55–96
[2016-11-23] MEDS: NS IV 1000 ML 1,000 ML IV SCH (00:05)
[2016-11-23] MEDS: HYDROcodone/APAP 5 MG/325 MG (LORTAB) TAB PO PRN ×2 (03:18→07:11)
[2016-11-23 04:09] LABS: BASOPHILS % (AUTO) 0 % (0-10); EOSINOPHILS # (AUTO) 0.1 10^3/uL (0.0-0.3); EOSINOPHILS % (AUTO) 1 % (0-10); LYMPHOCYTES # (AUTO) 1.2 X 10^3 (1.0-4.0); LYMPHOCYTES % (AUTO) 14 % (12-44); MEAN CORPUSCULAR HEMOGLOBIN 30 PG (25-34); MEAN CORPUSCULAR HGB CONC 33 G/DL (32-36); MEAN CORPUSCULAR VOLUME 90 FL (80-99); MEAN PLATELET VOLUME 9.2 FL (7.4-10.4); MONOCYTES # (AUTO) 0.8 X 10^3 (0.0-1.0); MONOCYTES % (AUTO) 10 % (0-12); NEUTROPHILS # (AUTO) 6.1 X 10^3 (1.8-7.8); NEUTROPHILS % (AUTO) 74 % (42-75); PLATELET COUNT 218 10^3/uL (130-400); RED BLOOD COUNT 3.17 10^6/uL (4.35-5.85); RED CELL DISTRIBUTION WIDTH 14.9 % (10.0-14.5); WHITE BLOOD COUNT 8.1 10^3/uL (4.3-11.0)
[2016-11-23 04:39] LABS: MAGNESIUM 1.9 MG/DL (1.8-2.4)
[2016-11-23 04:41] LABS: ALANINE AMINOTRANSFERASE 9 U/L (0-55); ALBUMIN 2.4 G/DL (3.2-4.5); ANION GAP 7 MMOL/L (5-14); ASPARTATE AMINO TRANSFERASE 16 U/L (5-34); BILIRUBIN,TOTAL 0.6 MG/DL (0.1-1.0); BLOOD UREA NITROGEN 6 MG/DL (7-18); BUN/CREATININE RATIO 10; CALCIUM 7.3 MG/DL (8.5-10.1); CARBON DIOXIDE 24 MMOL/L (21-32); CHLORIDE 109 MMOL/L (98-107); CREATININE SERUM 0.59 MG/DL (0.60-1.30); GFR ESTIMATED > 60; GLUCOSE 108 MG/DL (70-105); PHOSPHORUS 0.9 MG/DL (2.3-4.7); POTASSIUM 3.1 MMOL/L (3.6-5.0); SODIUM 140 MMOL/L (135-145); TOTAL PROTEIN 4.3 G/DL (6.4-8.2)
--- NOTE | 2016-11-23 05:03 | Pulmonary Progress Note ---
Subjective Subjective/Events-last exam PT is doing better. Exam Exam Vital Signs Date Time Temp Pulse Resp B/P (MAP) Pulse Ox O2 Delivery O2 Flow Rate FiO2 11/23/16 04:00 94 135/83 100 Nasal Cannula 2.00 11/23/16 03:15 108 154/96 99 Nasal Cannula 2.00 11/23/16 03:00 110 154/96 89 Nasal Cannula 2.00 11/23/16 02:00 77 109/62 98 Nasal Cannula 2.00 11/23/16 01:00 86 116/65 100 Nasal Cannula 2.00 11/23/16 00:00 111 100/55 97 Nasal Cannula 2.00 11/22/16 23:00 100 118/68 96 Nasal Cannula 2.00 11/22/16 22:00 138 101/79 96 Nasal Cannula 2.00 11/22/16 21:00 114 112/74 95 Nasal Cannula 2.00 11/22/16 20:00 114 142/91 96 Nasal Cannula 2.00 11/22/16 19:00 104 119/72 96 Nasal Cannula 2.00 11/22/16 19:00 93 11/22/16 18:00 95 97/69 98 Nasal Cannula 2.00 11/22/16 17:00 146/92 Nasal Cannula 2.00 11/22/16 16:01 98 2.00 11/22/16 16:00 130 98 Nasal Cannula 2.00 11/22/16 15:00 129 97 Nasal Cannula 2.00 11/22/16 14:00 102 135/75 100 Nasal Cannula 2.00 11/22/16 13:00 100 20 152/89 100 Nasal Cannula 2.00 11/22/16 13:00 98 11/22/16 12:00 95 137/78 100 Nasal Cannula 2.00 11/22/16 12:00 98 2.00 11/22/16 11:00 93 143/77 100 Nasal Cannula 2.00 11/22/16 10:00 96 130/76 98 Nasal Cannula 2.00 11/22/16 09:00 98.5 102 16 130/68 98 2.00 11/22/16 09:00 130 137/83 98 Nasal Cannula 2.00 11/22/16 08:00 98 2.00 11/22/16 08:00 94 124/77 98 Nasal Cannula 2.00 11/22/16 07:00 101 11/22/16 07:00 98.0 106 18 120/75 98 2.00 11/22/16 07:00 108 120/75 99 Nasal Cannula 2.00 11/22/16 06:40 98.0 106 19 126/71 98 2.00 11/22/16 06:00 110 11 129/84 100 Nasal Cannula 2.00 11/22/16 05:00 100 11 110/62 100 Nasal Cannula 2.00 I & O 11/23/16 07:00 Intake Total 1550 ml Output Total 790 ml Balance 760 ml General Appearance: No Apparent Distress, WD/WN HEENT: PERRL/EOMI, TMs Normal Neck: Normal Inspection, Non Tender, Supple Respiratory: Chest Non Tender, No Accessory Muscle Use Cardiovascular: Normal Peripheral Pulses Peripheral Pulses: 2+ Dorsalis Pedis (R), 2+ Left Dors-Pedis (L) Gastrointestinal: non tender, distended Extremity: Normal Capillary Refill Neurologic/Psychiatric: Alert, Oriented x3, No Motor/Sensory Deficits, Normal Mood/Affect, jig box operator II-XII Norm as Tested Skin: Other (Dressing CDI) Lymphatic: No Adenopathy Results Lab Laboratory Tests 11/22/16 05:00 11/22/16 11:00 11/23/16 04:00 Assessment/Plan Assessment/Plan Thoracolumbar Scoliosis s/p Laminectomy Syndrome L4-S1 Anterior T6-Pelvis Posterior Spinal Fusion for scoliosis -pain control Metabolic lactic acidosis secondary to intravascular depletion -IVF, transfuse, monitor Transfer to 4th floor with end tidal C02 monitor, telemetry, and [id number] signs. I am going to sign off please let me know if you have any questions. Clinical Quality Measures DVT/VTE Risk/Contraindication: Risk Factor Score Per Nursin RFS Level Per Nursing on Admit: 4+=Very High AIYANA JAIME DO November 23, 2016 05:03
[2016-11-23] MEDS ORDERED: KCL 20 MEQ TAB (K-DUR) PO NR ×3 (06:15→16:30)
[2016-11-23] MEDS: ONDANSETRON 4 MG/2 ML (SDV) Z0FRAN IV PRN (06:25)
[2016-11-23] MEDS: PANTOPRAZOLE 40 MG (PROTONIX) TAB PO SCH (06:25)
[2016-11-23] MEDS ORDERED: KCL 20 MEQ TAB (K-DUR) PO ONE (06:30)
--- NOTE | 2016-11-23 06:36 | Progress Note (SOAP) ---
Subjective Subjective/Events-last exam POD #4, s/p L4-S1 ALIF, T6-S2 PSF VSS, afebrile Objective Exam Vital Signs Date Time Temp Pulse Resp B/P (MAP) Pulse Ox O2 Delivery O2 Flow Rate FiO2 11/23/16 04:00 94 135/83 100 Nasal Cannula 2.00 11/23/16 03:15 108 154/96 99 Nasal Cannula 2.00 11/23/16 03:00 110 154/96 89 Nasal Cannula 2.00 11/23/16 02:00 77 109/62 98 Nasal Cannula 2.00 11/23/16 01:00 86 116/65 100 Nasal Cannula 2.00 11/23/16 00:00 111 100/55 97 Nasal Cannula 2.00 11/22/16 23:00 100 118/68 96 Nasal Cannula 2.00 11/22/16 22:00 138 101/79 96 Nasal Cannula 2.00 11/22/16 21:00 114 112/74 95 Nasal Cannula 2.00 11/22/16 20:00 114 142/91 96 Nasal Cannula 2.00 11/22/16 19:00 104 119/72 96 Nasal Cannula 2.00 11/22/16 19:00 93 11/22/16 18:00 95 97/69 98 Nasal Cannula 2.00 11/22/16 17:00 146/92 Nasal Cannula 2.00 11/22/16 16:01 98 2.00 11/22/16 16:00 130 98 Nasal Cannula 2.00 11/22/16 15:00 129 97 Nasal Cannula 2.00 11/22/16 14:00 102 135/75 100 Nasal Cannula 2.00 11/22/16 13:00 100 20 152/89 100 Nasal Cannula 2.00 11/22/16 13:00 98 11/22/16 12:00 95 137/78 100 Nasal Cannula 2.00 11/22/16 12:00 98 2.00 11/22/16 11:00 93 143/77 100 Nasal Cannula 2.00 11/22/16 10:00 96 130/76 98 Nasal Cannula 2.00 11/22/16 09:00 98.5 102 16 130/68 98 2.00 11/22/16 09:00 130 137/83 98 Nasal Cannula 2.00 11/22/16 08:00 98 2.00 11/22/16 08:00 94 124/77 98 Nasal Cannula 2.00 11/22/16 07:00 101 11/22/16 07:00 98.0 106 18 120/75 98 2.00 11/22/16 07:00 108 120/75 99 Nasal Cannula 2.00 11/22/16 06:40 98.0 106 19 126/71 98 2.00 I & O 11/23/16 07:00 Intake Total 1550 ml Output Total 790 ml Balance 760 ml Capillary Refill : General Appearance: No Apparent Distress Respiratory: No Accessory Muscle Use, No Respiratory Distress Cardiovascular: Normal Peripheral Pulses Gastrointestinal: non tender, distended, other (No Ziegler-Pemberton's or Jared's ) Extremity: Normal Capillary Refill, Non Tender, No Calf Tenderness Neurologic/Psychiatric: Alert, Oriented x3, No Motor/Sensory Deficits, Normal Mood/Affect Skin: Other (Dressing CDI) Results Lab Laboratory Tests 11/22/16 10:01: Glucometer 98 11/22/16 11:00: Hemoglobin 10.1#L, Hematocrit 31L 11/22/16 14:41: Lab Scanned Report Transfusion Reaction Form 11/23/16 04:00: Hemoglobin 9.4L, Hematocrit 29L, White Blood Count 8.1, Red Blood Count 3.17L, Mean Corpuscular Volume 90, Mean Corpuscular Hemoglobin 30, Mean Corpuscular Hemoglobin Concent 33, Red Cell Distribution Width 14.9H, Platelet Count 218, Mean Platelet Volume 9.2, Neutrophils (%) (Auto) 74, Lymphocytes (%) (Auto) 14, Monocytes (%) (Auto) 10, Eosinophils (%) (Auto) 1, Basophils (%) (Auto) 0, Neutrophils # (Auto) 6.1, Lymphocytes # (Auto) 1.2, Monocytes # (Auto) 0.8, Eosinophils # (Auto) 0.1, Basophils # (Auto) 0.0, Sodium Level 140, Potassium Level 3.1L, Chloride Level 109H, Carbon Dioxide Level 24, Anion Gap 7, Blood Urea Nitrogen 6L, Creatinine 0.59L, Estimat Glomerular Filtration Rate > 60, BUN /Creatinine Ratio 10, Glucose Level 108H, Calcium Level 7.3L, Phosphorus Level 0.9*L, Magnesium Level 1.9, Total Bilirubin 0.6, Aspartate Amino Transf (AST/ SGOT) 16, Alanine Aminotransferase (ALT/SGPT) 9, Alkaline Phosphatase 38L, Total Protein 4.3L, Albumin 2.4L Assessment/Plan Assessment/Plan Assess & Plan/Chief Complaint Thoracolumbar kyphoscoliosis S/P L4-S1 ALIF, T6-S2 PSF Acute blood loss anemia, post-operative- stable Hypokalemia- replace today Ok for transfer to floor later today Clinical Quality Measures DVT/VTE Risk/Contraindication: Risk Factor Score Per Nursin RFS Level Per Nursing on Admit: 4+=Very High CANDACE MATUTE November 23, 2016 06:36
[2016-11-23] MEDS: MULTIVIT W/MINERALS TAB (THERAGRAN M) PO SCH (07:11)
[2016-11-23] MEDS ORDERED: FUROSEMIDE 40 MG/4 ML INJ (LASIX) IVP NR (08:00)
[2016-11-23] MEDS ORDERED: POTASSIUM PHOSPHATE INJ 15 MM in NS (IVPB) 250 ML IV NR (08:00)
--- NOTE | 2016-11-23 08:04 | Cardiology Progress Note ---
Subjective Subjective/Events-last exam Patient is laying down in bed, complaining of back pain, complaining of generalized edema in her upper and lower extremities, no chest pain. Review of Systems General: No Chills, No Night Sweats, Fatigue, Malaise, No Appetite, No Other HEENT: No Head Aches, No Visual Changes, No Eye Pain, No Ear Pain, No Dysphasia , No Sinus Congestion, No Post Nasal Drip, No Sore Throat, No Other Pulmonary: No Dyspnea, No Cough, No Pleuritic Chest Pain, No Other Cardiovascular: Edema, No: Chest Pain, Lt Headedness, Orthopnea, Other, Palpitations, Paroxysmal Noc. Dyspnea Objective-Cardiology Exam Last Set of Vital Signs Vital Signs 11/23/16 06:00 Pulse 78 B/P (MAP) 116/69 Pulse Ox 98 O2 Delivery Nasal Cannula O2 Flow Rate 2.00 Capillary Refill : I&O Intake and Output 11/23/16 00:00 Intake Total 2550 ml Output Total 1330 ml Balance 1220 ml Intake Oral 450 ml IV Total 2100 ml Output Urine Total 1140 ml Drainage Total 190 ml General: Alert, Oriented X3, Cooperative HEENT: Atraumatic, PERRLA Neck: Supple, No JVD, No Thyromegaly Lungs: Clear to Auscultation, Normal Air Movement Heart: Normal S1, Normal S2, No Murmurs, Other (slightly tachycardic) Abdomen: Normal Bowel Sounds, Soft, No Tenderness, No Hepatosplenomegaly Extremities: Normal Pulses, Other (+2-3 pedal edema, upper extremity edema) Skin: No Rashes, No Significant Lesion Neuro: Normal Speech, Cranial Nerves 3-12 NL Psych/Mental Status: Mental Status NL, Mood NL Results Lab Laboratory Tests 11/22/16 11:00 11/23/16 04:00 A/P-Cardiology Admission Diagnosis Tachycardia Hypotension Anemia Hypothyroidism Assessment/Plan Tachycardia- Telemetry revealing sinus tachycardia. HR slightly improved today. Continue Lopressor and continue to monitor, heart rate is better. Continue to monitor. Generalized upper and lower extremity edema, I will give one dose of Lasix, continue to monitor Hypokalemia, hypophosphatemia, replace and monitor Hypotension- Improved. Tolerating Lopressor. Continue to monitor. POD #4 s/p thoracolumbar fusion with Dr. Arrieta Post-op anemia- s/p blood transfusion. Continue to monitor H/H. Hypothyroidism- continue to monitor. Nausea- improved. continue Zofran PRN Clinical Quality Measures DVT/VTE Risk/Contraindication: Risk Factor Score Per Nursin RFS Level Per Nursing on Admit: 4+=Very High KAREN ANTUNEZ MD November 23, 2016 08:04
[2016-11-23] MEDS: DOCUSATE SODIUM 100 MG (COLACE) CAP PO SCH (09:19)
[2016-11-23] MEDS: meTOprolol TARTRATE 25 MG (LOPRESSOR) TABLET PO SCH (09:20)
--- NOTE | 2016-11-23 10:15 | Physical Therapy Daily Note ---
PT Daily Note-Current Subjective Patient is very agreeable to participate with PT. Patient is more alert and aware today. Pain Numeric Pain Scale: 5-Moderate Pain Location: Posterior Location Body Site: Back Pain Description: Pressure, Acute Appearance total body edema Mental Status Patient Orientation: Normal For Age Attachments: Drains, IV Transfers Functional [place] Measure 0=Not Assessed/NA 4=Minimal Assistance 1=Total Assistance 5=Supervision or Setup 2=Maximal Assistance 6=Modified [place] 3=Moderate Assistance 7=Complete IndependenceIRFPAI Quality Coding Scale 6 Independent with activity with or without an assistive device 5 Patient requires set up or clean up by helper. Patient completes activity by themselves 4 Supervision or touching assist (CGA). [place] provide cues , steadying assist 3 The helper provides less than half the effort to complete the activity 2 The helper provides more than half the effort to complete the activity 1 Dependent. The helper does all the effort to complete an activity 7 Patient refused to complete or attempt activity 9 The patient did not perform the activity before the current illness or injury 88 Not attempted due to Medical conditions or safety concerns Transfers (B, C, W/C) (FIM): 5 Sit to/from Stand: 5 Gait Training Gait (FIM): 5 Distance (FIM): 3=150 ft Distance: 150' x 2 Gait Level of Assist: 5 Gait Persons Needed: 1 Gait Assistive Device: FWW very slow, steady gait sequence Assessment Patient is slowly improving with gross motor skills. She requires dependent assist to tasneem brace and to toilet. Patient requires time to complete all functional tasks. PT to increase activity as tolerated. PT Short Term Goals Short Term Goals Transfers (B,C,W/C) (FIM): 5 PT Brick Wheeler Goals Brick Wheeler Goals PT Brick Wheeler Goals Time Frame: November 23, 2016 Transfers (B,C,W/C) (FIM): 6 Gait (FIM): 6 Gait distance (FIM): 3=150 ft Gait Assistive Device: FWW PT Plan Treatment/Plan Treatment Plan: Continue Plan of Care Treatment Plan: Bed Mobility, Education, Functional Activity Patricia, Functional Strength, Gait, Safety, Therapeutic Exercise, Transfers Treatment Duration: November 23, 2016 Visits Per Week: 11 Time/GCodes Time In: 935 Time Out: 958 Total Billed Treatment Time: 23 Total Billed Treatment 1 visit GT x 2 23 min AUDREY HAMMER PT November 23, 2016 10:15
--- NOTE | 2016-11-23 11:57 | Discharge Summary-Hospitalist ---
Diagnosis/Chief Complaint Date of Admission November 19, 2016 at 07:38 Date of Discharge November 23, 2016 at 11:39 Discharge Date: November 23, 2016 Admission Diagnosis Assessment: Hypotension following spine surgery Chronic debility Post op anemia Hypothyroidism GERD HLP Discharge Diagnosis Assessment: Hypotension following spine surgery requiring IVF, pressors and then blood now improved with improved tachycardic appreciate Cardiology input Chronic debility Post op anemia s/p 2 units of blood Hypothyroidism GERD HLP Acute ileus Assessment: Hypotension following spine surgery Chronic debility Post op anemia Hypothyroidism GERD HLP Slow recovery Chart Review: WBC 7.1 Hgb 7.5 K+ 3.5 Albumin 2.4 Had recurrent vomiting yesterday so I placed her NPO Conferred with Dr. 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 Pt has not vomited today Pt has been flatulent but has had no BMs Pt denies gastrointestinal problems at home Physical exam stable. Bowel sounds auscultated Pt has not felt nauseated today and she will start a liquid diet PT has seen pt today. Minimizing pain medication was discussed with pts family. Pt will need to ambulate and reduce the amount of pain medication she is on or she will have to go to NH tomorrow. AFVSS, Pleasant, O x 3, frail, pale, slightly less sedated Tachycardic, CTAB no rales noted No edema Laboratory Tests 11/22/16 05:00 11/22/16 11:00 Assessment: Hypotension following spine surgery requiring IVF, pressors and then blood now improved by tachycardic so consulting Cardiology Chronic debility Post op anemia s/p 2 units of blood Hypothyroidism GERD HLP Assessment: Hypotension following spine surgery Chronic debility Post op anemia Hypothyroidism GERD HLP Slow recovery Plan: Very slow recovery expected so will do inpatient rehabilitation eval hopefully soon Monitor blood work closely Cardiology consult for tachycardia Clear liquid diet ICU step down Repeat labs in am Improve movement and ambulation Reduce amount of pain medication Swingbed, possible in-pt rehab Saturday Scribed by Lauren Gallegos under the direct supervision of Dr. Vazquez. Reason Hospital Visit/Course CC: Medical management following spine surgery HPI: This is a 71-year-old white female patient of Allison Rojo that presents to the ICU after an uncomplicated spine surgery per Dr. Arrieta but did become hypotensive requiring pressor therapy and IV fluids after surgery and in recovery. Dr. Walker was consulted for critical illness and IV fluids and pressor therapy were both initiated with good results but her repeat hemoglobin is 7.1 likely will require transfusion. Overall she feels weak but pain is controlled after pain medication as given and overall she denies a chest pain or shortness of breath. I review her home medication list and review vitals and labs. Note from 11/23/16 bench assembly inspector: Pt has not had BM. Patient Interview: Pt states she is able to drink well. Pt was told she will be placed on swingbed for the weekend. Pt denies BM. Pt declines urge for a BM. Physical exam was stable. Pt states she is feeling better than yesterday. Pt states she is using IS often. Pt states she has no concerns currently. Scribed by Javier Kiser under the direct supervision of Dr. Vazquez. AFVSS, Pleasant, O x 3, improved, more alert up in chair RRR, CTAB no edema Spine brace in place Hospital course: Patient had a very complex and lengthy hospital course most of it remaining in the ICU due to hypotension that required IVF and pressor therapy and just overall significant decline following surgery that resulted in 700 mL blood loss but did require 2 units of packed red blood cells while hospitalized in the ICU. It is very difficult to motivate but she was able to get up and around with therapy was in need of nothing by mouth status to resolve the ileus that she had following surgery due to narcotics and lack of ambulation so that was in the process of resolution when she was placed on swing bed for the weekend hopefully be able to transfer to inpatient rehabilitation on Saturday to facilitate recovery and returned home. Discharge Summary Discharge Physical Examination Allergies: Coded Allergies: No Known Drug Allergies (Unverified , 11/05/16) Vitals & I&Os Vital Signs Date Time Temp Pulse Resp B/P (MAP) Pulse Ox O2 Delivery O2 Flow Rate FiO2 11/23/16 08:35 98 2.00 11/23/16 08:35 98.2 84 149/89 Nasal Cannula 11/22/16 13:00 20 Hospital Course Labs (last 24 hrs) Laboratory Tests 11/22/16 14:41: Lab Scanned Report Transfusion Reaction Form 11/23/16 04:00: White Blood Count 8.1, Red Blood Count 3.17L, Hemoglobin 9.4L, Hematocrit 29L, Mean Corpuscular Volume 90, Mean Corpuscular Hemoglobin 30, Mean Corpuscular Hemoglobin Concent 33, Red Cell Distribution Width 14.9H, Platelet Count 218, Mean Platelet Volume 9.2, Neutrophils (%) (Auto) 74, Lymphocytes (%) (Auto) 14, Monocytes (%) (Auto) 10, Eosinophils (%) (Auto) 1, Basophils (%) (Auto) 0, Neutrophils # (Auto) 6.1, Lymphocytes # (Auto) 1.2, Monocytes # (Auto) 0.8, Eosinophils # (Auto) 0.1, Basophils # (Auto) 0.0, Sodium Level 140, Potassium Level 3.1L, Chloride Level 109H, Carbon Dioxide Level 24, Anion Gap 7, Blood Urea Nitrogen 6L, Creatinine 0.59L, Estimat Glomerular Filtration Rate > 60, BUN /Creatinine Ratio 10, Glucose Level 108H, Calcium Level 7.3L, Phosphorus Level 0.9*L, Magnesium Level 1.9, Total Bilirubin 0.6, Aspartate Amino Transf (AST/ SGOT) 16, Alanine Aminotransferase (ALT/SGPT) 9, Alkaline Phosphatase 38L, Total Protein 4.3L, Albumin 2.4L Pending Labs Discharge Home Medications: Active Scripts Active Reported B-12 (Cyanocobalamin (Vitamin B-12)) 1,000 Mcg Tablet 1,000 Mcg PO DAILY Pantoprazole Sodium 40 Mg Tablet.dr 40 Mg PO HS Vitamin D3 (Cholecalciferol (Vitamin D3)) 2,000 Unit Capsule 2,000 Unit PO DAILY Ferrous Gluconate 324 Mg Tablet 324 Mg PO BID Pravastatin Sodium 40 Mg Tablet 40 Mg PO HS Metoprolol Tartrate 25 Mg Tablet 12.5 Mg PO BID TAKES 1/2 (25MG) TABLET Levothyroxine Sodium 50 Mcg Tablet 50 Mcg PO DAILY Tramadol HCl 50 Mg Tablet 50 Mg PO Q12H PRN Gabapentin 300 Mg Capsule 300 Mg PO BID Instructions to patient/family Please see electonic discharge instructions given to patient. Clinical Quality Measures DVT/VTE Risk/Contraindication: Risk Factor Score Per Nursin RFS Level Per Nursing on Admit: 4+=Very High DONNIE VAZQUEZ DO November 23, 2016 11:56
[2016-11-26] MEDS ORDERED: ACET325T49 PO (09:58)
[2016-11-26] MEDS ORDERED: BISA5TAB8 PO (09:58)
[2016-11-26] MEDS ORDERED: DOCU100C37 PO (09:58)
[2016-11-26] MEDS ORDERED: DIPH25TA27 PO (09:58)
[2016-11-26] MEDS ORDERED: METO-333 PO ×2 (09:58→10:06)
[2016-11-26] MEDS ORDERED: HYDR-3812 PO ×2 (09:58→10:06)
[2016-11-26] MEDS ORDERED: BACL10TA PO ×2 (09:58→10:06)
[2016-11-26] MEDS ORDERED: TRAM50TA2 PO (10:06)
== END 2016-11-23 11:39 | disposition swing bed (61) | DRG 454 ==
LOC: 4TH 07:38 → SURG 07:39 → ICU 16:35
PROVIDERS: ADMIT Orthopaedic Surgery Orthopaedic Surgery of the Spine; ATTEND Orthopaedic Surgery Orthopaedic Surgery of the Spine
PROC: 0SG30A0 Fusion of Lumbosacral Joint with Interbody Fusion Device, Anterior Approach, Anterior Column, Open Approach (ICD-10-PCS; 2016-11-19)
PROC: 0RG7071 Fusion of 2 to 7 Thoracic Vertebral Joints with Autologous Tissue Substitute, Posterior Approach, Posterior Column, Open Approach (ICD-10-PCS; 2016-11-19)
PROC: 0RGA071 Fusion of Thoracolumbar Vertebral Joint with Autologous Tissue Substitute, Posterior Approach, Posterior Column, Open Approach (ICD-10-PCS; 2016-11-19)
PROC: 0SG1071 Fusion of 2 or more Lumbar Vertebral Joints with Autologous Tissue Substitute, Posterior Approach, Posterior Column, Open Approach (ICD-10-PCS; 2016-11-19)
PROC: 0SG3071 Fusion of Lumbosacral Joint with Autologous Tissue Substitute, Posterior Approach, Posterior Column, Open Approach (ICD-10-PCS; 2016-11-19)
PROC: 0SG00A0 Fusion of Lumbar Vertebral Joint with Interbody Fusion Device, Anterior Approach, Anterior Column, Open Approach (ICD-10-PCS; principal; 2016-11-19 08:55)
DX: M41.25 Other idiopathic scoliosis, thoracolumbar region (principal); M96.1 Postlaminectomy syndrome, not elsewhere classified; I95.81 Postprocedural hypotension; D62 Acute posthemorrhagic anemia; E87.2 Acidosis; K56.7 Ileus, unspecified; R00.0 Tachycardia, unspecified; E86.9 Volume depletion, unspecified; E87.6 Hypokalemia; E83.39 Other disorders of phosphorus metabolism; I10 Essential (primary) hypertension; E03.9 Hypothyroidism, unspecified; K21.9 Gastro-esophageal reflux disease without esophagitis; E78.00 Pure hypercholesterolemia, unspecified; M81.0 Age-related osteoporosis without current pathological fracture; M19.91 Primary osteoarthritis, unspecified site; G62.9 Polyneuropathy, unspecified
CPT/HCPCS: 36415; 71010; 80048; 80053; 82330; 82962; 83605; 83735; 84100; 84132; 84484; 85014; 85018; 85025; 85027; 86920; 93005; 94664

== ENCOUNTER 2016-11-23 11:35 | Inpatient (IN) | payer MEDICARE, OTHER ==
[~2016-11-23] VITALS: Ht 154.9 cm; Wt 65.9 kg
[~2016-11-23 11:35] MED LIST changes: +CYAN100088 PO
[2016-11-23] MEDS ORDERED: ONDANSETRON 4 MG/2 ML (SDV) Z0FRAN IV PRN (11:45)
[2016-11-23] MEDS ORDERED: PROMETHAZINE 25 MG (PHENERGAN) TAB PO PRN (11:45)
[2016-11-23] MEDS ORDERED: BISACODYL 5 MG (DULCOLAX) TABLET PO PRN (11:45)
[2016-11-23] MEDS ORDERED: HYDROmorphone (DILAUDID) 2 MG/ML VIAL IVP PRN (11:45)
[2016-11-23] MEDS ORDERED: ACETAMINOPHEN 325 MG TABLET/CAPLET (TYLENOL) PO PRN (11:45)
[2016-11-23] MEDS ORDERED: diphenhydrAMINE 25 MG TAB (BENADRYL) PO PRN (11:45)
[2016-11-23] MEDS ORDERED: HYDROmorphone (DILAUDID) 4 MG TAB PO PRN (11:45)
[2016-11-23] MEDS ORDERED: DIAZEPAM 5 MG (VALIUM) TABLET PO PRN (11:45)
--- NOTE | 2016-11-23 14:35 | Occupational Therapy Eval ---
OT Evaluation-General/PLF Medical Diagnosis Admission Date November 23, 2016 at 11:43 Medical Diagnosis: Post L4-S1 ant lumbar fusion T6-Pelvis PSF Onset Date: November 19, 2016 Therapy Diagnosis Therapy Diagnosis: decreased self care Height/Weight Height (Feet): 5 Height (Inches): 1.00 Weight (Pounds): 145 Weight (Ounces): 5.0 Weight Bear Status Weight Bearing Restriction: Weight Bearing/Tolerated Referral Physician: Mya Referral Reason: Evaluation/Treatment Referral Comments may ambulate and sit without brace, standard back precautions Medical History Pertinent Medical History: Arthritis Additional Medical History scoliosis, chronic back pain Current History Post L4-S1 ant lumbar fusion T6-Pelvis PSF Reviewed History: Yes Social History Home: Single Level Current Living Status: Spouse Entry Into Home: Stairs With Railing Steps Into Home: 2 Spouse can assist minimally. Sister will be staying with pt at d/c to assist as needed. Sons live nearby ADL-Prior Level of Function ADL PLOF Comments Pt reports being independent prior to admission. DME/Equipment: Grab Bars, Shower, Tall Toilet Drive Self: Yes OT Current Status Subjective Pt sitting in chair with brace on; spouse present. Pt agrees to therapy. Pt reports 2/10 back pain. Mental Status/Objective Patient Orientation: Person, Place, Situation Current Glasses/Contacts: Yes Hearing Aids: No Dentures/Partials: Yes Hand Dominance: Right Upper Extremity ROM Grossly functional Upper Extremity Coordination Intact Upper Extremity Strength not formally assessed secondary to recent back surgery ADL-Treatment ADL-Current Pt sit to stand with supervision. Transfer to [facility] with CGA using FWW. Pt able to complete toileting hygiene, requires CGA for balance during clothing management. Pt washed hands with washcloth. Pt combed hair and washed face with set up. Pt sitting in chair with needs met and spouse present after session. Functional [place] Measure 0=Not Assessed/NA 4=Minimal Assistance 1=Total Assistance 5=Supervision or Setup 2=Maximal Assistance 6=Modified [place] 3=Moderate Assistance 7=Complete IndependenceIRFPAI Quality Coding Scale 6 Independent with activity with or without an assistive device 5 Patient requires set up or clean up by helper. Patient completes activity by themselves 4 Supervision or touching assist (CGA). [place] provide cues , steadying assist 3 The helper provides less than half the effort to complete the activity 2 The helper provides more than half the effort to complete the activity 1 Dependent. The helper does all the effort to complete an activity 7 Patient refused to complete or attempt activity 9 The patient did not perform the activity before the current illness or injury 88 Not attempted due to Medical conditions or safety concerns Eating (FIM): 5 (pt feeding self ice chips) Eating (QC): 5 Grooming (FIM): 5 Oral Hygiene (QC): 5 Toileting (FIM): 4 Toileting Hygiene (QC): 4 Toilet/Commode Transfer (FIM): 4 (CGA) Toilet Transfer (QC): 4 (CGA) Education OT Patient Education: Rehab process Teaching Recipient: Patient Teaching Methods: Discussion Response to Teaching: Verbalize Understanding OT Short Term Goals Short Term Goals 1=Demonstrate adherence to instructed precautions during ADL tasks. 2=Patient will verbalize/demonstrate understanding of assistive devices/ modifications for ADL. 3=Patient will improve strength/tolerance for activity to enable patient to perform ADL's. OT International Sourcing Manager Goals Detention Goals Time Frame: December 07, 2016 Eating (FIM): 6 Eating (QC): 6 Groomin Oral Hygiene (QC): 6 Upper Body Dressing(FIM): 6 Lower Body Dressing(FIM): 5 Toileting(FIM): 6 Toileting Hygiene (QC): 6 Toilet/Commode Transfer(FIM): 6 Toilet/Commode Transfer (QC): 6 Additional Goals: 1-Demonstrate ADL Tasks, 2-Verbalize Understanding, 3- ImproveStrength/Patricia 1=Demonstrate adherence to instructed precautions during ADL tasks. 2=Patient will verbalize/demonstrate understanding of assistive devices/ modifications for ADL. 3=Patient will improve strength/tolerance for activity to enable patient to perform ADL's. OT Education/Plan Problem List/Assessment Assessment: Decreased UE Strength, Dependent Transfers, Impaired Self-Care Skills Pt to benefit from skilled OT intervention for ADL training, transfers, strengthening, adaptive equipment training, and home safety education to improve level of independence and allow safe discharge home. Discharge Recommendations Plan/Recommendations: Continue POC Treatment Plan/Plan of Care Treatment,Training & Education: Yes Patient would benefit from OT for education, treatment and training to promote independence in ADL's, mobility, safety and/or upper extremity function for ADL' s. Plan of Care: ADL Retraining, Functional Mobility, UE Funct Exercise/Act Treatment Duration: December 07, 2016 # of days/week 5 Visits Per Week: 5 Agreement: Yes Rehab Potential: Good Time/GCodes Start Time: 12:57 Stop Time: 12:21 Total Time Billed (hr/min): 24 Billed Treatment Time 1 visit, EVM(9minutes), ADL(15minutes) CHETAN BRASHER OT November 23, 2016 14:35
--- NOTE | 2016-11-23 14:59 | Physical Therapy Evaluation ---
PT Evaluation-General Medical Diagnosis Admission Date November 23, 2016 at 11:43 Medical Diagnosis: Post L4-S1 and lumbar fusion T6-Pelvis PSF Onset Date: November 19, 2016 Therapy Diagnosis Therapy Diagnosis: Generalized weakness and debility Height/Weight Height (Feet): 5 Height (Inches): 1.00 Weight (Pounds): 145 Weight (Ounces): 5.0 Weight Bear Status Weight Bearing Restriction: Weight Bearing/Tolerated Referral Physician: Mya Reason for Referral: Evaluation/Treatment Medical History Pertinent Medical History: Arthritis Additional Medical History s/p L4-S1 and lumbar fusion T6-Pelvis PSF Current History SWB Reviewed History: Yes Social History Home: Single Level Current Living Status: Spouse Entry Into Home: Stairs With Railing PT Steps Into Home: 2 Prior/Core FIM Prior Level of Function Functional [place] Measure 0=Not Assessed/NA 4=Minimal Assistance 1=Total Assistance 5=Supervision or Setup 2=Maximal Assistance 6=Modified [place] 3=Moderate Assistance 7=Complete [place] Bed Mobility: 7 Transfers (B,C,W/C) (FIM): 7 Gait: 7 works [place] PT Evaluation-Current Subjective Patient agrees to PT. Multiple family members present. Pain Numeric Pain Scale: 5-Moderate Pain Location: Posterior Location Body Site: Back Pain Description: Acute Pt/Family Goals return to home TORO Objective Patient Orientation: Normal For Age Problem Solving: Good ROM/Strength ROM Lower Extremities bilateral LE WFL Strenght Lower Extremities bilateral LE WFL Integumentary/Posture Integumentary refer to nursing notes Bowel Incontinence: No Bladder Incontinence: No Posture WFL Neuromuscular (Tone, Coordination, Reflexes) grossly intact Sensory Vision: Functional Hearing: Functional Hand Dominance: Right Sensation Right Lower Extremit: Intact Sensation Left Lower Extremity: Intact Transfers Functional [place] Measure 0=Not Assessed/NA 4=Minimal Assistance 1=Total Assistance 5=Supervision or Setup 2=Maximal Assistance 6=Modified [place] 3=Moderate Assistance 7=Complete [place] Transfers (B, C, W/C) (FIM): 5 Scootin Supine to/from Sit: 5 Sit to/from Stand: 5 Sit to Lying (QC): 5 Lying to Sitting/Side of Bed(Q: 5 Sit to Stand (QC): 5 Gait Does the Patient Walk?: Yes Mode of Locomotion: Walk Anticipated Mode of Locomotion: Walk Gait (FIM): 5 Distance (FIM): 3=150 ft Distance: 300' Walk 50 ft with 2 Turns(QC): 5 Walk 150 ft (QC): 5 Gait Level of Assist: 5 Gait Assistive Device: FWW Comments/Gait Description slow, steady; will need a lift in right shoe secondary to leg length Balance Sitting Static: Normal Sitting Dynamic: Normal Standing Static: Normal Standing Dynamic: Normal Treatment bilateral LE seated exercises 20 reps x 3 sets, AP, LAQ, hip flexion Assessment/Needs 71 y.o. female, will benefit from skilled PT to address functional strength and mobility to improve current LOF and to safely return to home with family at maximum LOF. Rehab Potential: Good PT Assisted Goals Assisted Goals PT Assisted Goals Time Frame: December 07, 2016 Transfers (B,C,W/C) (FIM): 7 Sit to Lying (QC): 6 Lying-Sitting on Side/Bed(QC): 6 Sit to Stand (QC): 6 Rollin Chair/Mhk-vs-Vtetd Xfer(QC): 6 Does the Patient Walk: Yes Gait (FIM): 6 Gait distance (FIM): 3=150 ft Distance: 400' Walk 50ft with 2 Turns (QC): 6 Walk 150 ft (QC): 6 Gait Level of Assist: 6 Gait Assistive Device: None, FWW, Cane Single Point PT Plan Problem List Problem List: Activity Tolerance, Functional Strength Treatment/Plan Treatment Plan: Continue Plan of Care Treatment Plan: Bed Mobility, Education, Functional Activity Patricia, Functional Strength, Gait, Safety, Therapeutic Exercise, Transfers Treatment Duration: December 07, 2016 # of days/week 6 Visits Per Week: 11 Minutes/Day (M-F): 15-45 Minutes/Day (Sat/Capps): PRN Pt/Family Agrees w/Plan: Yes Safety Risks/Education Patient Education: Safety Issues Teaching Recipient: Patient Teaching Methods: Discussion Response to Teaching: Verbalize Understanding Discharge Recommendations Therapy D/C Recommendations: Home w/ Family Support Time/GCodes Time In: 1405 Time Out: 1430 Total Billed Treatment Time: 25 Total Billed Treatment 1 visit EVLowC 10 min EX 15 min AUDREY HAMMER PT November 23, 2016 14:59
[2016-11-23 15:55] VITALS: BP 138/88
[2016-11-23] MEDS ORDERED: KCL 20 MEQ TAB (K-DUR) PO NR (16:30)
[2016-11-23 19:35] VITALS: BP 141/97
[2016-11-23] MEDS: DOCUSATE SODIUM 100 MG (COLACE) CAP PO SCH (20:34)
[2016-11-23] MEDS: meTOprolol TARTRATE 25 MG (LOPRESSOR) TABLET PO SCH (20:34)
[2016-11-23] MEDS: BACLOFEN 10 MG (LIORESAL) TAB PO PRN (20:40)
[2016-11-24] VITALS: BP 109/74
[2016-11-24 06:00] VITALS: BP 119/77
[2016-11-24] MEDS: MULTIVIT W/MINERALS TAB (THERAGRAN M) PO SCH (06:12)
[2016-11-24] MEDS: BACLOFEN 10 MG (LIORESAL) TAB PO PRN ×3 (06:12→20:24)
[2016-11-24] MEDS: PANTOPRAZOLE 40 MG (PROTONIX) TAB PO SCH (06:12)
--- NOTE | 2016-11-24 08:38 | Physical Therapy Daily Note ---
PT Daily Note-Current Subjective States that she is feeling okay. Pain Numeric Pain Scale: 0-No Pain Transfers Functional [place] Measure 0=Not Assessed/NA 4=Minimal Assistance 1=Total Assistance 5=Supervision or Setup 2=Maximal Assistance 6=Modified [place] 3=Moderate Assistance 7=Complete IndependenceIRFPAI Quality Coding Scale 6 Independent with activity with or without an assistive device 5 Patient requires set up or clean up by helper. Patient completes activity by themselves 4 Supervision or touching assist (CGA). [place] provide cues , steadying assist 3 The helper provides less than half the effort to complete the activity 2 The helper provides more than half the effort to complete the activity 1 Dependent. The helper does all the effort to complete an activity 7 Patient refused to complete or attempt activity 9 The patient did not perform the activity before the current illness or injury 88 Not attempted due to Medical conditions or safety concerns Transfers (B, C, W/C) (FIM): 4 Supine to/from Sit: 4 Sit to/from Stand: 5 Gait Training Gait (FIM): 5 Distance (FIM): 3=150 ft Distance: 500 feet Gait Level of Assist: 5 Gait Persons Needed: 1 Gait Assistive Device: FWW Assessment Current Status: Excellent Progress The patient did well with gait and was able to ambulate farther distance. PT Book Store Associate Goals Book Store Associate Goals PT Mcc Goals Time Frame: December 07, 2016 Transfers (B,C,W/C) (FIM): 7 Sit to Lying (QC): 6 Lying-Sitting on Side/Bed(QC): 6 Sit to Stand (QC): 6 Rollin Chair/[id number]-rm-Rlhqm Xfer(QC): 6 Does the Patient Walk: Yes Gait (FIM): 6 Gait distance (FIM): 3=150 ft Distance: 400' Walk 50ft with 2 Turns (QC): 6 Walk 150 ft (QC): 6 Gait Level of Assist: 6 Gait Assistive Device: None, FWW, Cane Single Point PT Plan Treatment/Plan Treatment Plan: Continue Plan of Care Treatment Plan: Bed Mobility, Education, Functional Activity Patricia, Functional Strength, Gait, Safety, Therapeutic Exercise, Transfers Treatment Duration: December 07, 2016 Visits Per Week: 11 Minutes/Day (M-F): 15-45 Minutes/Day (Sat/Capps): PRN Time/GCodes Time In: 815 Time Out: 835 Total Billed Treatment Time: 20 Total Billed Treatment 1, GT x 20 CHIP MORAN PT November 24, 2016 08:38
[2016-11-24] MEDS: meTOprolol TARTRATE 25 MG (LOPRESSOR) TABLET PO SCH ×2 (09:02→20:23)
[2016-11-24] MEDS: DOCUSATE SODIUM 100 MG (COLACE) CAP PO SCH ×2 (09:03→20:22)
--- NOTE | 2016-11-24 11:11 | Progress Note-Hospitalist ---
Subjective Date Seen 11/24/16 Subjective/Events-last exam patient currently without significant complaint. Last bowel movement was approximately 6 days ago. she has not vomited in 2 days. She is passing flatus. she smiles bravely says the pain is tolerable. Nursing staff notes that her heart rates been up to 130. My exam at about 90 today. He denies shortness of breath and has company and is sitting up in a chair visiting. Review of Systems Gastrointestinal: Constipation Musculoskeletal: back pain Neurological: Weakness Objective Exam Vital Signs Vital Sign - Last 12Hours 11/23/16 15:55 Temp 98.0 Pulse 119 Resp 28 B/P (MAP) 138/88 Pulse Ox 96 O2 Delivery Room Air Capillary Refill : General Appearance: Other (mildly uncomfortable) Neck: Supple Respiratory: Decreased Breath Sounds, Pleural Rub (side of the chest) Cardiovascular: Regular Rate, Rhythm, Systolic Murmur Gastrointestinal: Abnormal Bowel Sounds, Distended Rectal: Deferred Extremity: Non Tender Neurologic/Psychiatric: Alert, Oriented x3, No Motor/Sensory Deficits Assessment/Plan Assessment and Plan Assess & Plan/Chief Complaint Hypotension following spine surgery requiring IVF, pressors and then blood now improved with improved tachycardic appreciate Cardiology input-place on telemetry Chronic debility Post op anemia s/p 2 units of blood-we'll follow H&H Hypothyroidism GERD HLP Acute ileus-vomiting resolved but she remains distended we'll give her a glycerin suppository NAKUL MCFARLAND MD November 24, 2016 11:11
[2016-11-24] MEDS ORDERED: GLYCERIN ADULT SUPPOSITORY PR NR (11:15)
[2016-11-24] MEDS: HYDROcodone/APAP 5 MG/325 MG (LORTAB) TAB PO PRN (12:14)
[2016-11-24 12:30] VITALS: BP 134/82
[2016-11-24 16:44] VITALS: BP 137/91
[2016-11-24] MEDS ORDERED: meTOprolol TARTRATE 25 MG (LOPRESSOR) TABLET PO NR (17:00)
--- NOTE | 2016-11-24 18:34 | Cardiology Progress Note ---
Subjective Subjective/Events-last exam I was called to evaluate patient for episodes of tachycardia, I have been seeing her for episodes of sinus tachycardia, it appear on telemetry that she had few episode of paroxysmal atrial tachycardia responded to oral beta blockers , currently heart rate is better. Review of Systems General: No Chills, No Night Sweats, Fatigue, No Malaise, No Appetite, No Other HEENT: No Head Aches, No Visual Changes, No Eye Pain, No Ear Pain, No Dysphasia , No Sinus Congestion, No Post Nasal Drip, No Sore Throat, No Other Pulmonary: No Dyspnea, No Cough, No Pleuritic Chest Pain, No Other Cardiovascular: No: Chest Pain, Edema, Lt Headedness, Orthopnea, Other, Palpitations, Paroxysmal Noc. Dyspnea Objective-Cardiology Exam Last Set of Vital Signs Vital Signs 11/24/16 16:44 Temp 98.6 Pulse 125 Resp 16 B/P (MAP) 137/91 Pulse Ox 96 O2 Delivery Room Air Capillary Refill : I&O Bad tableGeneral: Alert, Oriented X3, Cooperative HEENT: Atraumatic, PERRLA Neck: Supple, No JVD, No Thyromegaly Lungs: Clear to Auscultation, Normal Air Movement Heart: Regular Rate, Normal S1, Normal S2, No Murmurs Abdomen: Normal Bowel Sounds, Soft, No Tenderness, No Hepatosplenomegaly, No Masses Extremities: No Clubbing, No Cyanosis, No Edema, Normal Pulses, No Tenderness/ Swelling Skin: No Rashes, No Breakdown, No Significant Lesion Neuro: Normal Gait, Normal Speech, Strength at 5/5 X4 Ext, Normal Tone, Sensation Intact Psych/Mental Status: Mental Status NL, Mood NL A/P-Cardiology Admission Diagnosis sinus tachycardia Hypotension Anemia Spinal stenosis Assessment/Plan Sinus tachycardia with multiple episode of paroxysmal atrial tachycardia improved after receiving a higher dose of beta blockers. Continue to monitor on telemetry for now. Hypotension, tolerating beta blockers, better blood pressure at this time, continue to monitor. S/p thoracolumbar fusion with Dr. Arrieta, recovering, receiving therapy. Post-op anemia- s/p blood transfusion. Continue to monitor H/H. Hypothyroidism- continue to monitor. KAREN ANTUNEZ MD November 24, 2016 18:34
[2016-11-24 20:10] VITALS: BP 139/87
[2016-11-25 00:35] VITALS: BP 131/77
[2016-11-25] MEDS: BACLOFEN 10 MG (LIORESAL) TAB PO PRN ×3 (02:23→20:55)
[2016-11-25 04:00] VITALS: BP 105/61
[2016-11-25 05:19] LABS: BASOPHILS % (AUTO) 0 % (0-10); EOSINOPHILS # (AUTO) 0.2 10^3/uL (0.0-0.3); EOSINOPHILS % (AUTO) 1 % (0-10); LYMPHOCYTES # (AUTO) 1.6 X 10^3 (1.0-4.0); LYMPHOCYTES % (AUTO) 13 % (12-44); MEAN CORPUSCULAR HEMOGLOBIN 30 PG (25-34); MEAN CORPUSCULAR HGB CONC 33 G/DL (32-36); MEAN CORPUSCULAR VOLUME 90 FL (80-99); MEAN PLATELET VOLUME 8.9 FL (7.4-10.4); MONOCYTES # (AUTO) 1.2 X 10^3 (0.0-1.0); MONOCYTES % (AUTO) 10 % (0-12); NEUTROPHILS % (AUTO) 76 % (42-75); PLATELET COUNT 262 10^3/uL (130-400); RED CELL DISTRIBUTION WIDTH 14.5 % (10.0-14.5); WHITE BLOOD COUNT 11.9 10^3/uL (4.3-11.0)
[2016-11-25 05:38] LABS: ALANINE AMINOTRANSFERASE 13 U/L (0-55); ALBUMIN 2.4 G/DL (3.2-4.5); ANION GAP 8 MMOL/L (5-14); ASPARTATE AMINO TRANSFERASE 22 U/L (5-34); BILIRUBIN,TOTAL 0.6 MG/DL (0.1-1.0); BLOOD UREA NITROGEN 5 MG/DL (7-18); BUN/CREATININE RATIO 9; CALCIUM 7.3 MG/DL (8.5-10.1); CARBON DIOXIDE 26 MMOL/L (21-32); CHLORIDE 106 MMOL/L (98-107); CREATININE SERUM 0.58 MG/DL (0.60-1.30); GFR ESTIMATED > 60; GLUCOSE 111 MG/DL (70-105); MAGNESIUM 1.7 MG/DL (1.8-2.4); POTASSIUM 3.4 MMOL/L (3.6-5.0); SODIUM 140 MMOL/L (135-145); TOTAL PROTEIN 4.3 G/DL (6.4-8.2)
[2016-11-25] MEDS: PANTOPRAZOLE 40 MG (PROTONIX) TAB PO SCH (06:20)
[2016-11-25] MEDS: MULTIVIT W/MINERALS TAB (THERAGRAN M) PO SCH (06:20)
[2016-11-25 08:00] VITALS: BP 138/87
[2016-11-25] MEDS: DOCUSATE SODIUM 100 MG (COLACE) CAP PO SCH ×2 (08:46→20:54)
[2016-11-25] MEDS: meTOprolol TARTRATE 25 MG (LOPRESSOR) TABLET PO SCH ×3 (08:46→20:55)
[2016-11-25] MEDS: HYDROcodone/APAP 5 MG/325 MG (LORTAB) TAB PO PRN (10:41)
[2016-11-25 11:02] LABS: ABG BASE EXCESS 1.9 MMOL/L (-2.5-2.5); ABG HCO3 25 MMOL/L (23-27); ABG OXYGEN SATURATION 98 % (94-100); ABG PCO2 34 MMHG (35-45); ABG PH 7.48 (7.37-7.43); ABG PO2 82 MMHG (79-93); ABG TCO2 26.2 MMOL/L (21.0-31.0); ALLENS TEST YES-POS
[2016-11-25 11:03] LABS: PATIENT TEMP 97.8
--- NOTE | 2016-11-25 11:05 | Cardiology Progress Note ---
Subjective Subjective/Events-last exam patient is sitting up in a chair, feeling slightly better, eating breakfast. I instructed her to limit her caffeine intake due to her tachycardia Review of Systems General: No Chills, No Night Sweats, No Fatigue, No Malaise, No Appetite, No Other HEENT: No Head Aches, No Visual Changes, No Eye Pain, No Ear Pain, No Dysphasia , No Sinus Congestion, No Post Nasal Drip, No Sore Throat, No Other Pulmonary: No Dyspnea, No Cough, No Pleuritic Chest Pain, No Other Cardiovascular: No: Chest Pain, Edema, Lt Headedness, Orthopnea, Other, Palpitations, Paroxysmal Noc. Dyspnea Objective-Cardiology Exam Last Set of Vital Signs Vital Signs 11/25/16 08:00 Temp 97.6 Pulse 129 Resp 17 B/P (MAP) 138/87 Pulse Ox 93 O2 Delivery Room Air Capillary Refill : I&O Intake and Output 11/25/16 00:00 Intake Total 1640 ml Output Total 3300 ml Balance -1660 ml Intake Oral 1640 ml Output Urine Total 3100 ml Drainage Total 200 ml # Voids 1 General: Alert, Oriented X3, Cooperative HEENT: Atraumatic, PERRLA Neck: Supple, No JVD, No Thyromegaly Lungs: Clear to Auscultation, Normal Air Movement Heart: Regular Rate, Normal S1, Normal S2, No Murmurs Abdomen: Normal Bowel Sounds, Soft, No Tenderness, No Hepatosplenomegaly, No Masses Extremities: No Clubbing, No Cyanosis, No Edema, Normal Pulses, No Tenderness/ Swelling Skin: No Rashes, No Breakdown, No Significant Lesion Neuro: Normal Gait, Normal Speech, Strength at 5/5 X4 Ext, Normal Tone, Sensation Intact Psych/Mental Status: Mental Status NL, Mood NL Results Lab Laboratory Tests 11/25/16 05:10 A/P-Cardiology Admission Diagnosis sinus tachycardia Hypotension Anemia Spinal stenosis Assessment/Plan Sinus tachycardia with multiple episode of paroxysmal atrial tachycardia improved after receiving a higher dose of beta blockers, change Lopressor to 3 times a day and monitor her tolerance. Blood gases done and showed normal oxygenation, mild respiratory alkalosis. Hypotension, tolerating beta blockers, better blood pressure at this time, continue to monitor. S/p thoracolumbar fusion with Dr. Arrieta, recovering, receiving therapy. Post-op anemia- s/p blood transfusion. Continue to monitor H/H. Hypothyroidism- continue to monitor. KAREN ANTUNEZ MD November 25, 2016 11:05
--- NOTE | 2016-11-25 11:32 | Progress Note-Hospitalist ---
Subjective Date Seen 11/25/16 Subjective/Events-last exam patient does not feel as well today she did yesterday. She continues to have tachycardia arrhythmias. She has had some pedal edema and increase shortness of breath. No orthopnea or PND Review of Systems Pulmonary: Dyspnea Neurological: Weakness Objective Exam Vital Signs Vital Sign - Last 12Hours 11/23/16 15:55 Temp 98.0 Pulse 119 Resp 28 B/P (MAP) 138/88 Pulse Ox 96 O2 Delivery Room Air Capillary Refill : General Appearance: Other (appears fatigued) HEENT: Normal ENT Inspection Neck: Supple Respiratory: Crackles, Decreased Breath Sounds Cardiovascular: Irregularly Irregular, Tachycardia Gastrointestinal: Non Tender, Soft Rectal: Deferred Back: Normal Inspection Extremity: Pedal Edema Neurologic/Psychiatric: Alert, Oriented x3, No Motor/Sensory Deficits, Depressed Affect Skin: Pallor Results/Procedures Lab Laboratory Tests 11/25/16 05:10 Assessment/Plan Assessment and Plan Assess & Plan/Chief Complaint Hypotension following spine surgery requiring IVF, pressors and then blood now improved with improved tachycardic appreciate Cardiology input. because of increased AA gradient we'll go ahead and order bilateral venous Dopplers to rule out DVT. We will also get a chest x-ray. Chronic debility Post op anemia s/p 2 units of blood-we'll follow H&H Hypothyroidism GERD HLP Acute ileus-vomiting resolved but she remains distended we'll give her a glycerin suppository hypomagnesemia will replace NAKUL MCFARLADN MD November 25, 2016 11:32
[2016-11-25] MEDS: MAGNESIUM 1 GM/100 ML IVPB 100 ML IV SCH ×2 (11:57→13:06)
[2016-11-25 12:00] VITALS: BP 104/59
--- NOTE | 2016-11-25 12:08 | Diagnostic Imaging Report ---
INDICATION: Tachycardia. FINDINGS: Two views show normal heart size and vascularity. There is left basilar atelectasis with a small effusion. There is no infiltrate. There is no pneumothorax. A hiatal hernia is present. PICC line is present with tip at the junction of the innominate vein and SVC. IMPRESSION: There has developed a small left basilar effusion since prior study from 11/21/2016. Dictated by: Dictated on workstation # [id number]
--- NOTE | 2016-11-25 12:30 | Diagnostic Imaging Report ---
INDICATION: Bilateral lower extremity swelling. Tachycardia. TECHNIQUE: Color Doppler velocity and spectral waveform analysis of the deep venous system of both legs was performed. FINDINGS: The examination shows normal augmentation, compression and color Doppler flow with no deep venous thrombosis or other abnormality seen. IMPRESSION: No deep venous thrombosis is seen. Dictated by: Dictated on workstation # [id number]
[2016-11-25 16:05] VITALS: BP 125/77
[2016-11-25 19:25] VITALS: BP 145/74
[2016-11-26] VITALS: BP 142/59
[2016-11-26] MEDS: HYDROcodone/APAP 5 MG/325 MG (LORTAB) TAB PO PRN ×3 (01:04→15:25)
[2016-11-26 04:00] VITALS: BP 137/85
[2016-11-26] MEDS: BACLOFEN 10 MG (LIORESAL) TAB PO PRN (05:03)
[2016-11-26 05:15] LABS: BASOPHILS % (AUTO) 0 % (0-10); EOSINOPHILS # (AUTO) 0.3 10^3/uL (0.0-0.3); EOSINOPHILS % (AUTO) 3 % (0-10); LYMPHOCYTES # (AUTO) 1.8 X 10^3 (1.0-4.0); LYMPHOCYTES % (AUTO) 16 % (12-44); MEAN CORPUSCULAR HEMOGLOBIN 30 PG (25-34); MEAN CORPUSCULAR HGB CONC 33 G/DL (32-36); MEAN CORPUSCULAR VOLUME 90 FL (80-99); MEAN PLATELET VOLUME 8.7 FL (7.4-10.4); MONOCYTES # (AUTO) 1.2 X 10^3 (0.0-1.0); MONOCYTES % (AUTO) 10 % (0-12); NEUTROPHILS # (AUTO) 8.4 X 10^3 (1.8-7.8); NEUTROPHILS % (AUTO) 72 % (42-75); PLATELET COUNT 297 10^3/uL (130-400); RED BLOOD COUNT 3.35 10^6/uL (4.35-5.85); RED CELL DISTRIBUTION WIDTH 14.5 % (10.0-14.5); WHITE BLOOD COUNT 11.7 10^3/uL (4.3-11.0)
[2016-11-26 05:43] LABS: ALANINE AMINOTRANSFERASE 12 U/L (0-55); ALBUMIN 2.4 G/DL (3.2-4.5); ANION GAP 7 MMOL/L (5-14); ASPARTATE AMINO TRANSFERASE 16 U/L (5-34); BILIRUBIN,TOTAL 0.5 MG/DL (0.1-1.0); BLOOD UREA NITROGEN 5 MG/DL (7-18); BUN/CREATININE RATIO 9; CALCIUM 7.2 MG/DL (8.5-10.1); CARBON DIOXIDE 27 MMOL/L (21-32); CHLORIDE 104 MMOL/L (98-107); CREATININE SERUM 0.54 MG/DL (0.60-1.30); GFR ESTIMATED > 60; GLUCOSE 104 MG/DL (70-105); MAGNESIUM 1.9 MG/DL (1.8-2.4); POTASSIUM 3.1 MMOL/L (3.6-5.0); SODIUM 138 MMOL/L (135-145); TOTAL PROTEIN 4.3 G/DL (6.4-8.2)
[2016-11-26] MEDS: MULTIVIT W/MINERALS TAB (THERAGRAN M) PO SCH (06:21)
[2016-11-26] MEDS: PANTOPRAZOLE 40 MG (PROTONIX) TAB PO SCH (06:21)
[2016-11-26 08:00] VITALS: BP 102/73
[2016-11-26] MEDS: DOCUSATE SODIUM 100 MG (COLACE) CAP PO SCH (08:11)
[2016-11-26] MEDS: meTOprolol TARTRATE 25 MG (LOPRESSOR) TABLET PO SCH ×2 (08:11→13:19)
--- NOTE | 2016-11-26 08:20 | Cardiology Progress Note ---
Subjective Subjective/Events-last exam Patient is sitting in chair, no new complaints. Denies any CP or dyspnea. Objective-Cardiology Exam Last Set of Vital Signs Vital Signs 11/26/16 11/26/16 04:00 07:00 Temp 98.4 Pulse 105 Resp 20 B/P (MAP) 137/85 Pulse Ox 97 O2 Delivery Room Air Capillary Refill : I&O Intake and Output 11/26/16 00:00 Intake Total 2067 ml Output Total 2285 ml Balance -218 ml Intake Oral 1967 ml IV Total 100 ml Output Urine Total 2125 ml Drainage Total 160 ml # Voids 1 # Urine Diapers 2 General: Alert, Oriented X3, Cooperative HEENT: Atraumatic, PERRLA Neck: Supple, No JVD, No Thyromegaly Lungs: Clear to Auscultation, Normal Air Movement Heart: Regular Rate, Normal S1, Normal S2, No Murmurs Abdomen: Normal Bowel Sounds, Soft, No Tenderness, No Hepatosplenomegaly, No Masses Extremities: No Clubbing, No Cyanosis, No Edema, Normal Pulses, No Tenderness/ Swelling Skin: No Rashes, No Breakdown, No Significant Lesion Neuro: Normal Gait, Normal Speech, Strength at 5/5 X4 Ext, Normal Tone, Sensation Intact Psych/Mental Status: Mental Status NL, Mood NL Results Lab Laboratory Tests 11/26/16 05:05 A/P-Cardiology Admission Diagnosis sinus tachycardia Hypotension Anemia Spinal stenosis Assessment/Plan Sinus tachycardia with multiple episode of paroxysmal atrial tachycardia improved after receiving a higher dose of beta blockers, Lopressor increased to 3 times a day. Continue to monitor her tolerance.I will reevaluate 2D Echo. Blood gases done and showed normal oxygenation, mild respiratory alkalosis. Hypotension, tolerating beta blockers, better blood pressure at this time, continue to monitor. S/p thoracolumbar fusion with Dr. Arrieta, recovering, receiving therapy. Post-op anemia- s/p blood transfusion. Continue to monitor H/H. Hypothyroidism- TSH 8. Recommend restarted levothyroxine. Management per PCP TERRA VOGEL November 26, 2016 08:20
--- NOTE | 2016-11-26 08:23 | Cardiology Progress Note ---
Subjective Subjective/Events-last exam patient is sitting up in a chair, eating breakfast, feeling well. Discussed with her the finding of her tachycardia and reported that she was noted to be tachycardic for the last 4-5 years by her primary care physician. Review of Systems General: No Chills, No Night Sweats, No Fatigue, No Malaise, No Appetite, No Other HEENT: No Head Aches, No Visual Changes, No Eye Pain, No Ear Pain, No Dysphasia , No Sinus Congestion, No Post Nasal Drip, No Sore Throat, No Other Pulmonary: No Dyspnea, No Cough, No Pleuritic Chest Pain, No Other Cardiovascular: No: Chest Pain, Edema, Lt Headedness, Orthopnea, Other, Palpitations, Paroxysmal Noc. Dyspnea Objective-Cardiology Exam Last Set of Vital Signs Vital Signs 11/26/16 11/26/16 04:00 07:00 Temp 98.4 Pulse 105 Resp 20 B/P (MAP) 137/85 Pulse Ox 97 O2 Delivery Room Air Capillary Refill : I&O Intake and Output 11/26/16 00:00 Intake Total 2067 ml Output Total 2285 ml Balance -218 ml Intake Oral 1967 ml IV Total 100 ml Output Urine Total 2125 ml Drainage Total 160 ml # Voids 1 # Urine Diapers 2 General: Alert, Oriented X3, Cooperative HEENT: Atraumatic, PERRLA Neck: Supple, No JVD, No Thyromegaly Lungs: Clear to Auscultation, Normal Air Movement Heart: Normal S1, Normal S2, No Murmurs, Other (tachycardia) Abdomen: Normal Bowel Sounds, Soft, No Tenderness, No Hepatosplenomegaly, No Masses Extremities: No Clubbing, No Cyanosis, No Edema, Normal Pulses, No Tenderness/ Swelling Skin: No Rashes, No Breakdown, No Significant Lesion Neuro: Normal Gait, Normal Speech, Strength at 5/5 X4 Ext, Normal Tone, Sensation Intact Psych/Mental Status: Mental Status NL, Mood NL Results Lab Laboratory Tests 11/26/16 05:05 A/P-Cardiology Admission Diagnosis sinus tachycardia Hypotension Anemia Spinal stenosis Assessment/Plan Sinus tachycardia with multiple episode of paroxysmal atrial tachycardia improved after receiving a higher dose of beta blockers, patient is reporting that she has been tachycardic for the last 4-5 years, I will reevaluate 2-D echocardiogram and continue to monitor Hypokalemia, replace and monitor Blood gases done and showed normal oxygenation, mild respiratory alkalosis. Hypotension, tolerating beta blockers, better blood pressure at this time, continue to monitor. S/p thoracolumbar fusion with Dr. Arrieta, recovering, receiving therapy. Post-op anemia- s/p blood transfusion. Continue to monitor H/H. Hypothyroidism- TSH 8. Recommend restarted levothyroxine. Management per PCP KAREN ANTUNEZ MD November 26, 2016 08:23
[2016-11-26] MEDS ORDERED: LEVOTHYROXINE 25 MCG (LEVOTHROID) TAB PO SCH (09:00)
[2016-11-26] MEDS ORDERED: NS IV 500 ML 500 ML ONE (09:33)
[2016-11-26] MEDS: POTASSIUM CL 10MEQ/50ML IVPB 50 ML IV SCH ×4 (09:40→13:18)
--- NOTE | 2016-11-26 09:49 | Discharge Summary-Hospitalist ---
Diagnosis/Chief Complaint Date of Admission November 23, 2016 at 11:43 Date of Discharge Discharge Diagnosis Assessment: Hypotension following spine surgery requiring IVF, pressors and then blood now resolved Chronic debility Post op anemia s/p 2 units of blood Hypothyroidism GERD HLP s/p ileus and constipation Reason Hospital Visit/Course Pt feels really good. BM sat Doing well ready for DC. AFVSS, Pleasant, O x 3 RRR, CTAB no edema Hospital course: patient had a lengthy hospital course that required swing bed to recuperate further before IRF and/or Home with . Pt was admitted after an uncomplicated lumbar spine surgery that required ICU admission due to severe hypotension that required blood transfusions IV fluids and pressor therapy. She overall stabilized enough to be placed on swing bed to evaluate status on Saturday whether or not she required inpatient rehabilitation or home with home care. She did have a bowel movement on Saturday diet was advanced and overall she was stable from a lab standpoint and clinical status to entertain either inpatient rehabilitation at discharge or home with home care. Overall she is very frail and it doesn't appear that she is overly active at home so likely we are near a sliding in addition she is also still complaining of back pain which I think she takes chronic pain medication at home may have required a great deal more while hospitalized due to tolerance. Overall she is doing well and ready for DC. Discharge Summary Discharge Physical Examination Allergies: Coded Allergies: No Known Drug Allergies (Unverified , 11/05/16) Vitals & I&Os Vital Signs Date Time Temp Pulse Resp B/P (MAP) Pulse Ox O2 Delivery O2 Flow Rate FiO2 11/26/16 08:54 98.4 11/26/16 07:00 105 11/26/16 04:00 20 137/85 97 Room Air Hospital Course Labs (last 24 hrs) Laboratory Tests 11/25/16 10:53: Blood Gas Puncture Site LT RAD, Blood Gas Patient Temperature 97.8, Arterial Blood pH 7.48H, Arterial Blood Partial Pressure CO2 34L, Arterial Blood Partial Pressure O2 82, Arterial Blood HCO3 25, Arterial Blood Total CO2 26.2, Arterial Blood Oxygen Saturation 98, Arterial Blood Base Excess 1.9, Anant Test YES-POS, Blood Gas Ventilator Setting NO, Blood Gas Inspired Oxygen ROOM AIR 11/26/16 05:05: White Blood Count 11.7H, Red Blood Count 3.35L, Hemoglobin 10.0L, Hematocrit 30L , Mean Corpuscular Volume 90, Mean Corpuscular Hemoglobin 30, Mean Corpuscular Hemoglobin Concent 33, Red Cell Distribution Width 14.5, Platelet Count 297, Mean Platelet Volume 8.7, Neutrophils (%) (Auto) 72, Lymphocytes (%) (Auto) 16, Monocytes (%) (Auto) 10, Eosinophils (%) (Auto) 3, Basophils (%) (Auto) 0, Neutrophils # (Auto) 8.4H, Lymphocytes # (Auto) 1.8, Monocytes # (Auto) 1.2H, Eosinophils # (Auto) 0.3, Basophils # (Auto) 0.0, Sodium Level 138, Potassium Level 3.1L, Chloride Level 104, Carbon Dioxide Level 27, Anion Gap 7, Blood Urea Nitrogen 5L, Creatinine 0.54L, Estimat Glomerular Filtration Rate > 60, BUN /Creatinine Ratio 9, Glucose Level 104, Calcium Level 7.2L, Magnesium Level 1.9 , Total Bilirubin 0.5, Aspartate Amino Transf (AST/SGOT) 16, Alanine Aminotransferase (ALT/SGPT) 12, Alkaline Phosphatase 47, B-Type Natriuretic Peptide 92.8, Total Protein 4.3L, Albumin 2.4L Pending Labs Laboratory Tests 11/26/16 05:05: White Blood Count 11.7, Red Blood Count 3.35, Hemoglobin 10.0, Hematocrit 30, Mean Corpuscular Volume 90, Mean Corpuscular Hemoglobin 30, Mean Corpuscular Hemoglobin Concent 33, Red Cell Distribution Width 14.5, Platelet Count 297, Mean Platelet Volume 8.7, Neutrophils (%) (Auto) 72, Lymphocytes (%) (Auto) 16, Monocytes (%) (Auto) 10, Eosinophils (%) (Auto) 3, Basophils (%) (Auto) 0, Neutrophils # (Auto) 8.4, Lymphocytes # (Auto) 1.8, Monocytes # (Auto) 1.2, Eosinophils # (Auto) 0.3, Basophils # (Auto) 0.0, Sodium Level 138, Potassium Level 3.1, Chloride Level 104, Carbon Dioxide Level 27, Anion Gap 7, Blood Urea Nitrogen 5, Creatinine 0.54, Estimat Glomerular Filtration Rate > 60, BUN/ Creatinine Ratio 9, Glucose Level 104, Calcium Level 7.2, Magnesium Level 1.9, Total Bilirubin 0.5, Aspartate Amino Transf (AST/SGOT) 16, Alanine Aminotransferase (ALT/SGPT) 12, Alkaline Phosphatase 47, B-Type Natriuretic Peptide 92.8, Total Protein 4.3, Albumin 2.4 Discharge Home Medications: Active Scripts Active Reported B-12 (Cyanocobalamin (Vitamin B-12)) 1,000 Mcg Tablet 1,000 Mcg PO DAILY Pantoprazole Sodium 40 Mg Tablet.dr 40 Mg PO HS Vitamin D3 (Cholecalciferol (Vitamin D3)) 2,000 Unit Capsule 2,000 Unit PO DAILY Ferrous Gluconate 324 Mg Tablet 324 Mg PO BID Pravastatin Sodium 40 Mg Tablet 40 Mg PO HS Metoprolol Tartrate 25 Mg Tablet 12.5 Mg PO BID TAKES 1/2 (25MG) TABLET Levothyroxine Sodium 50 Mcg Tablet 50 Mcg PO DAILY Tramadol HCl 50 Mg Tablet 50 Mg PO Q12H PRN Gabapentin 300 Mg Capsule 300 Mg PO BID Instructions to patient/family Please see electonic discharge instructions given to patient. DONNIE VAZQUEZ DO November 26, 2016 09:49
--- NOTE | 2016-11-26 09:56 | Physical Therapy Daily Note ---
PT Daily Note-Current Subjective Patient is alert and agrees to PT. Pain Numeric Pain Scale: 5-Moderate Pain Location: Posterior Location Body Site: Back Pain Description: Ache Mental Status Patient Orientation: Normal For Age Attachments: Drains Transfers Functional [place] Measure 0=Not Assessed/NA 4=Minimal Assistance 1=Total Assistance 5=Supervision or Setup 2=Maximal Assistance 6=Modified [place] 3=Moderate Assistance 7=Complete IndependenceIRFPAI Quality Coding Scale 6 Independent with activity with or without an assistive device 5 Patient requires set up or clean up by helper. Patient completes activity by themselves 4 Supervision or touching assist (CGA). [place] provide cues , steadying assist 3 The helper provides less than half the effort to complete the activity 2 The helper provides more than half the effort to complete the activity 1 Dependent. The helper does all the effort to complete an activity 7 Patient refused to complete or attempt activity 9 The patient did not perform the activity before the current illness or injury 88 Not attempted due to Medical conditions or safety concerns Transfers (B, C, W/C) (FIM): 6 Scootin Roll Left to Right (QC): 5 Supine to/from Sit: 6 Sit to/from Stand: 6 Sit to Lying (QC): 5 Sit to Stand (QC): 5 Chair/Lie-iq-Hqchh Xfer(QC): 5 Bed to/from Chair: 6 slow, functional Gait Training Does the Patient Walk?: Yes Gait (FIM): 6 Distance (FIM): 3=150 ft Distance: 650' Walk 50 ft with 2 Turns(QC): 5 Walk 150 ft (QC): 5 Gait Level of Assist: 6 safe and functional with FWW Exercises Seated Therapy Exercises: Ankle pumps, Long arc quads Seated Reps: 20 Treatments Education with discussion and demonstration with donning back brace with patient and family performing with good knowledge and technique. Assessment Current Status: Excellent Progress Patient progressing quickly with treatment plan. From a physical therapy standpoint, patient is demonstrating ability to return to home with home health therapy and family support. PT to consult with OT, physician and nursing on POC. PT Staff Rn Goals Assisted Goals PT Staff Rn Goals Time Frame: December 07, 2016 Transfers (B,C,W/C) (FIM): 7 Sit to Lying (QC): 6 Lying-Sitting on Side/Bed(QC): 6 Sit to Stand (QC): 6 Rollin Chair/Kjp-dj-Hltcl Xfer(QC): 6 Does the Patient Walk: Yes Gait (FIM): 6 Gait distance (FIM): 3=150 ft Distance: 400' Walk 50ft with 2 Turns (QC): 6 Walk 150 ft (QC): 6 Gait Level of Assist: 6 Gait Assistive Device: None, FWW, Cane Single Point PT Plan Treatment/Plan Treatment Plan: Continue Plan of Care Treatment Plan: Bed Mobility, Education, Functional Activity Patricia, Functional Strength, Gait, Safety, Therapeutic Exercise, Transfers Treatment Duration: December 07, 2016 Visits Per Week: 11 Minutes/Day (M-F): 15-45 Minutes/Day (Sat/Capps): PRN Discharge Recommendations Therapy D/C Recommendations: Physical Therapy Home Care Time/GCodes Time In: 911 Time Out: 934 Total Billed Treatment Time: 23 Total Billed Treatment 1 visit GT 13 min FA 10 min AUDREY HAMMER PT November 26, 2016 09:56
[2016-11-26] MEDS ORDERED: DOCU100C37 PO (09:58)
[2016-11-26] MEDS ORDERED: BACL10TA PO ×2 (09:58→10:06)
[2016-11-26] MEDS ORDERED: DIPH25TA27 PO (09:58)
[2016-11-26] MEDS ORDERED: ACET325T49 PO (09:58)
[2016-11-26] MEDS ORDERED: HYDR-3812 PO ×2 (09:58→10:06)
[2016-11-26] MEDS ORDERED: BISA5TAB8 PO (09:58)
[2016-11-26] MEDS ORDERED: METO-333 PO ×2 (09:58→10:06)
--- NOTE | 2016-11-26 10:03 | Discharge Inst-Home Health ---
Discharge Inst-to Home Health Patient Instructions Patient Instructions/FollowUp: maintain close follow up with Dr Arrieta Patient Problems: Spine surgery iron deficiency anemia VIA [place], [place] DISCHARGE ORDERS Allergies: Coded Allergies: No Known Drug Allergies (Unverified , 11/05/16) Height (Feet): 5 Height (Inches): 1.00 Weight (Pounds): 145 Weight (Ounces): 5.0 Home Health Need/Face to Face Reason Pt Homebound weakness I Have Seen Pt Ctjw-jn-Kjta: Yes Date of Face to Face: November 26, 2016 Discharged To: Home Diagnosis/Conditions HH Order: med administration Back brace monitoring Pain med monitoring Consult/Follow Up/New Order *I certify that based on my findings, the following services are medically necessary Home Health Services: Services: Nursing Services, Food Products Tester-Evaluate & Treat, Physical Therapy-Evaluate & Treat My clinical findings support the need for the above services; see Diagnosis. Dicharge Diet: No Restrictions Daily Activity as Tolerated: Yes Discharge Medications: New, Converted, or Re-newed RX: Other I certify that this patient is under my care and that I, a nurse practitioner or a physician; a payroll human resources assistant working with me, had a face to face encounter that - meets the physician face to face encounter requirements with this patient as dated. DONNIE VAZQUEZ DO November 26, 2016 10:03
[2016-11-26] MEDS ORDERED: TRAM50TA2 PO (10:06)
--- NOTE | 2016-11-26 12:05 | Occupational Ther Daily Note ---
OT Current Status-Daily Note Subjective Pt sitting in chair, agrees to therapy. Pt reports 5/10 back pain. Mental Status/Objective Functional [place] Measure 0=Not Assessed/NA 4=Minimal Assistance 1=Total Assistance 5=Supervision or Setup 2=Maximal Assistance 6=Modified [place] 3=Moderate Assistance 7=Complete [place] ADL-Treatment Pt sit to stand with modified independence. Gait to restroom with FWW, no LOB noted. Pt completed grooming tasks while standing at sink. Pt washed face and combed hair with modified independence. Pt states she soaks her dentures at night and has no difficulty removing/replacing dentures. Pt demonstrated ability to perform toilet transfer with modified independence using grab bar for safety. Pt transferred to chair with modified independence. Reviewed use of adaptive equipment for LE dressing. Pt demonstrated ability to doff socks with verbal cues using dressing stick. Picked socks up using manager electrical. Donned socks with set up using sock aid. Pt states she will have someone with her at home and they will likely assist with lower body dressing. Pt states she has a manager electrical at home and verbalizes understanding of how to use it to don pants/ underwear. Pt denied further questions at this time. Pt sitting in chair with needs met and sister present after session. Functional [place] Measure 0=Not Assessed/NA 4=Minimal Assistance 1=Total Assistance 5=Supervision or Setup 2=Maximal Assistance 6=Modified [place] 3=Moderate Assistance 7=Complete IndependenceIRFPAI Quality Coding Scale 6 Independent with activity with or without an assistive device 5 Patient requires set up or clean up by helper. Patient completes activity by themselves 4 Supervision or touching assist (CGA). [place] provide cues , steadying assist 3 The helper provides less than half the effort to complete the activity 2 The helper provides more than half the effort to complete the activity 1 Dependent. The helper does all the effort to complete an activity 7 Patient refused to complete or attempt activity 9 The patient did not perform the activity before the current illness or injury 88 Not attempted due to Medical conditions or safety concerns Eating (FIM): 6 (Pt reports managing containers, cutting food, and feeding self without assistance.) Eating (QC): 6 Grooming (FIM): 6 Oral Hygiene (QC): 6 Lower Body Dressing (FIM): 5 Toilet/Commode Transfer (FIM): 6 Education OT Patient Education: Modified ADL techniques Teaching Recipient: Patient Teaching Methods: Demonstration, Discussion Response to Teaching: Verbalize Understanding, Return Demonstration OT Short Term Goals Short Term Goals 1=Demonstrate adherence to instructed precautions during ADL tasks. 2=Patient will verbalize/demonstrate understanding of assistive devices/ modifications for ADL. 3=Patient will improve strength/tolerance for activity to enable patient to perform ADL's. OT Clutch Mechanic Goals Skilled Nursing Goals Time Frame: December 07, 2016 Eating (FIM): 6 Eating (QC): 6 Groomin Oral Hygiene (QC): 6 Upper Body Dressing(FIM): 6 Lower Body Dressing(FIM): 5 Toileting(FIM): 6 Toileting Hygiene (QC): 6 Toilet/Commode Transfer(FIM): 6 Toilet/Commode Transfer (QC): 6 Additional Goals: 1-Demonstrate ADL Tasks, 2-Verbalize Understanding, 3- ImproveStrength/Patricia 1=Demonstrate adherence to instructed precautions during ADL tasks. 2=Patient will verbalize/demonstrate understanding of assistive devices/ modifications for ADL. 3=Patient will improve strength/tolerance for activity to enable patient to perform ADL's. OT Education/Plan Problem List/Assessment Pt to benefit from skilled OT intervention for ADL training, transfers, strengthening, adaptive equipment training, and home safety education to improve level of independence and allow safe discharge home. Discharge Recommendations Plan/Recommendations: Continue POC Treatment Plan/Plan of Care Patient would benefit from OT for education, treatment and training to promote independence in ADL's, mobility, safety and/or upper extremity function for ADL' s. Plan of Care: ADL Retraining, Functional Mobility, UE Funct Exercise/Act Treatment Duration: December 07, 2016 Visits Per Week: 5 Agreement: Yes Rehab Potential: Good Time/GCodes Start Time: 11:05 Stop Time: 11:25 Total Time Billed (hr/min): 20 Billed Treatment Time 1 visit, ADL(20minutes) CHETAN BRASHER OT November 26, 2016 12:05
[2016-11-26 12:30] VITALS: BP 109/56
--- NOTE | 2016-11-26 15:13 | Therapy Team Discharge Summary ---
Therapy Discharge Summary Discharge Recommendations Date of Discharge Therapy D/C Recommendations: Physical Therapy Home Care Physical Therapy Patient dismissing to home with family and home health intervention. Patient demonstrates improved gross motor skills with ambulating modified independent with FWW x 650'. Patient is modified independent with all mobility (bed mobility, transfers and ambulation) with no safety concerns. Upon initial evaluation, patient required mod to minimal assist with all function and was limited with ambulation with FWW due to pain and fatigue. Patient has made great progress. PT Group Home Goals Committee Member Goals PT Committee Member Goals Time Frame: December 07, 2016 Transfers (B,C,W/C) (FIM): 7 Sit to Lying (QC): 6 Lying-Sitting on Side/Bed(QC): 6 Sit to Stand (QC): 6 Rollin Chair/Lxv-ij-Ymviy Xfer(QC): 6 Does the Patient Walk: Yes Gait (FIM): 6 Gait distance (FIM): 3=150 ft Distance: 400' Walk 50ft with 2 Turns (QC): 6 Walk 150 ft (QC): 6 Gait Level of Assist: 6 Gait Assistive Device: None, FWW, Cane Single Point OT Committee Member Goals Group Home Goals Time Frame: December 07, 2016 Eating (FIM): 6 Eating (QC): 6 Groomin Oral Hygiene (QC): 6 Upper Body Dressing(FIM): 6 Lower Body Dressing(FIM): 5 Toileting(FIM): 6 Toileting Hygiene (QC): 6 Toilet/Commode Transfer(FIM): 6 Toilet/Commode Transfer (QC): 6 Additional Goals: 1-Demonstrate ADL Tasks, 2-Verbalize Understanding, 3- ImproveStrength/Patricia 1=Demonstrate adherence to instructed precautions during ADL tasks. 2=Patient will verbalize/demonstrate understanding of assistive devices/ modifications for ADL. 3=Patient will improve strength/tolerance for activity to enable patient to perform ADL's. AUDREY HAMMER PT November 26, 2016 15:12
--- NOTE | 2016-11-27 12:52 | Therapy Team Discharge Summary ---
Therapy Discharge Summary Discharge Recommendations Date of Discharge November 26, 2016 at 15:30 Therapy D/C Recommendations: Physical Therapy Home Care Occupational Therapy Pt admitted to swing bed status following acute hospitalization for L4-S1 Ant lumbar fusion and T6-pelvis PSF. On admission pt required CGA for toilet transfers and set up for eating and grooming. Skilled OT intervention focused on ADL training, transfers, and adaptive equipment education. Pt made good progress with therapy and by discharge is completing transfers, grooming, and eating with modified independence and is able to complete LE dressing tasks using adaptive equipment. Pt met goals for eating, grooming and toilet transfers. Pt discharged home with family support. D/C SWB OT at this time. PT Care Home Goals Care Home Goals PT Care Home Goals Time Frame: December 07, 2016 Transfers (B,C,W/C) (FIM): 7 Sit to Lying (QC): 6 Lying-Sitting on Side/Bed(QC): 6 Sit to Stand (QC): 6 Rollin Chair/Ewu-ed-Hjtaz Xfer(QC): 6 Does the Patient Walk: Yes Gait (FIM): 6 Gait distance (FIM): 3=150 ft Distance: 400' Walk 50ft with 2 Turns (QC): 6 Walk 150 ft (QC): 6 Gait Level of Assist: 6 Gait Assistive Device: None, FWW, Cane Single Point OT Care Home Goals Care Home Goals Time Frame: December 07, 2016 Eating (FIM): 6 Eating (QC): 6 Groomin Oral Hygiene (QC): 6 Upper Body Dressing(FIM): 6 Lower Body Dressing(FIM): 5 Toileting(FIM): 6 Toileting Hygiene (QC): 6 Toilet/Commode Transfer(FIM): 6 Toilet/Commode Transfer (QC): 6 Additional Goals: 1-Demonstrate ADL Tasks, 2-Verbalize Understanding, 3- ImproveStrength/Patricia 1=Demonstrate adherence to instructed precautions during ADL tasks. 2=Patient will verbalize/demonstrate understanding of assistive devices/ modifications for ADL. 3=Patient will improve strength/tolerance for activity to enable patient to perform ADL's. CHETAN BRASHER OT November 27, 2016 12:52
--- NOTE | 2016-11-28 11:20 | ECHOCARDIOGRAPHY REPORT ---
DATE OF SERVICE: 11/26/2016 TWO DIMENSIONAL ECHOCARDIOGRAM MEASUREMENT: LVID end diastolic 3.0, IVS thickness 1.2, LVPW thickness 1.1, left atrial diameter 2.9, ejection fraction 60%. FINDINGS: 1. Technical quality is good. 2. The left ventricle is normal in size with mild left ventricular hypertrophy noted diffusely, more pronounced at the base of the septum giving the septum a sigmoid shape. Systolic function appeared to be normal, estimated ejection fraction 60%. Diastolic dysfunction is suggested by Doppler. 3. The left atrium is normal in size. No clots or thrombus were seen within the left atrium. 4. The right atrium and right ventricle are normal in size. No clots or thrombus were seen within the right side. 5. Mitral valve is normal in morphology with mild mitral regurgitation noted by color Doppler flow. No mitral valve prolapse. No mitral valve stenosis. 6. Aortic valve is trileaflet with normal opening and closing pattern. No significant aortic stenosis or regurgitation was seen. 7. Tricuspid valve is normal in morphology with mild tricuspid regurgitation noted by color Doppler flow. Doppler across tricuspid valve estimated pulmonary artery pressure of 44 plus right atrial pressure. 8. Pulmonic valve is functioning normally. 9. No pericardial effusion. CONCLUSION: 1. Mild left ventricular hypertrophy noted diffusely, more pronounced at the base of the septum giving the septum a sigmoid shape. Systolic function is normal. Estimated ejection fraction 60%. Diastolic dysfunction is suggested by Doppler. 2. Mild mitral and tricuspid regurgitation. 3. Pulmonary hypertension with estimated pulmonary artery pressure of 50 mmHg. Job ID: [id number] DocumentID: [id number] Dictated Date: 11/28/2016 08:17:40 Gre Tutor Date: 11/28/2016 08:42:35 Dictated By: KAREN ANTUNEZ MD
== END 2016-11-26 15:30 | disposition home health service (06) | DRG 309 ==
LOC: 4TH 11:43
PROVIDERS: ADMIT Internal Medicine; ATTEND Internal Medicine
DX: I47.1 Supraventricular tachycardia (principal); D50.9 Iron deficiency anemia, unspecified; K56.7 Ileus, unspecified; E87.3 Alkalosis; R53.81 Other malaise; R60.0 Localized edema; I10 Essential (primary) hypertension; E03.9 Hypothyroidism, unspecified; E78.5 Hyperlipidemia, unspecified; K21.9 Gastro-esophageal reflux disease without esophagitis; E83.42 Hypomagnesemia; M48.05 Spinal stenosis, thoracolumbar region; E87.6 Hypokalemia; Z98.1 Arthrodesis status
CPT/HCPCS: 36415; 71020; 80053; 82805; 83735; 83880; 84443; 85025; 85027; 93005; 93306; 93970